=== PATIENT | female | born 1950 | race Caucasian/White ===

== ENCOUNTER 2022-06-27 11:00 | Outpatient (RCR) | payer MEDICARE, SELFPAY | END 2022-09-07 15:24 | disposition home or self-care (01) | PROVIDERS: PCP Family Medicine; Visit Provider Family Medicine | DX: M54.16 Radiculopathy, lumbar region (principal); Z51.89 Encounter for other specified aftercare | CPT/HCPCS: 97110; 97140; 97535 ==

== ENCOUNTER 2022-09-04 14:00 | Outpatient (RCR) | payer MEDICARE, SELFPAY | END 2023-01-08 14:43 | disposition home or self-care (01) | PROVIDERS: PCP Family Medicine; Visit Provider Family Medicine | DX: M54.16 Radiculopathy, lumbar region (principal); M48.061 Spinal stenosis, lumbar region without neurogenic claudication; Z98.890 Other specified postprocedural states; M25.562 Pain in left knee; G89.29 Other chronic pain; M76.62 Achilles tendinitis, left leg; R25.2 Cramp and spasm; R53.1 Weakness; M25.60 Stiffness of unspecified joint, not elsewhere classified; Z74.09 Other reduced mobility; Z51.89 Encounter for other specified aftercare | CPT/HCPCS: 97110; 97140; 97162 ==

== ENCOUNTER 2022-09-10 11:00 | Outpatient (RCR) | payer MEDICARE, SELFPAY | END 2023-02-07 23:59 | disposition home or self-care (01) | PROVIDERS: PCP Family Medicine; Visit Provider Family Medicine | DX: R53.1 Weakness (principal); Z98.890 Other specified postprocedural states; M25.562 Pain in left knee; M48.061 Spinal stenosis, lumbar region without neurogenic claudication; M54.16 Radiculopathy, lumbar region; M54.2 Cervicalgia; G44.209 Tension-type headache, unspecified, not intractable; Z51.89 Encounter for other specified aftercare; R26.9 Unspecified abnormalities of gait and mobility ==

== ENCOUNTER 2022-12-18 10:30 | Outpatient (RCR) | payer MEDICARE, SELFPAY | END 2023-04-17 23:59 | disposition home or self-care (01) | PROVIDERS: PCP Family Medicine; Visit Provider Family Medicine | DX: G44.209 Tension-type headache, unspecified, not intractable (principal); R53.1 Weakness; M48.061 Spinal stenosis, lumbar region without neurogenic claudication; M54.16 Radiculopathy, lumbar region; M25.562 Pain in left knee; Z51.89 Encounter for other specified aftercare; M54.2 Cervicalgia | CPT/HCPCS: 97110; 97140; 97162 ==

== ENCOUNTER 2023-01-16 11:00 | Outpatient (RCR) | payer MEDICARE, SELFPAY | END 2023-05-16 23:59 | disposition home or self-care (01) | PROVIDERS: PCP Family Medicine; Visit Provider Family Medicine | DX: M54.17 Radiculopathy, lumbosacral region (principal); M48.062 Spinal stenosis, lumbar region with neurogenic claudication; M48.061 Spinal stenosis, lumbar region without neurogenic claudication; M54.16 Radiculopathy, lumbar region; M25.562 Pain in left knee; G89.29 Other chronic pain; M76.62 Achilles tendinitis, left leg; G44.209 Tension-type headache, unspecified, not intractable; Z98.890 Other specified postprocedural states; R25.2 Cramp and spasm; R53.1 Weakness; M25.60 Stiffness of unspecified joint, not elsewhere classified; Z51.89 Encounter for other specified aftercare | CPT/HCPCS: 97032; 97110; 97140; 97162; 97535 ==

== ENCOUNTER 2023-05-07 09:52 | Outpatient (CLI) | payer MEDICARE, SELFPAY ==
--- OUTSIDE RECORDS SUMMARY | 2023-05-07 09:55 | XMS_ITS | Continuity of Care Document ---
Author Name Unknown Organization [facility] Address [address] [place] [address] Phone Care Team Providers Care Vehicle Maintenance Technician Name Role Phone Estrella ESCALONA, PhD, Yamil Unavailable Unavai lable Allergies, Adverse Reactions, Alerts Substance Reaction Status Criticality ALLERGENIC EXTRACTS Wheezing Active No Infor mation acetaminophen hives Active No Information ragweed pollen Active No Informatio n morphine Active No Information latex Active No Information hydrocodone Active No Information dicloxacillin Active No Information CLOVE OIL Active No Information Medications Medication Instructions Dosage Effective Dates (start - stop) Status Comments cholecalciferol (vitamin D3) 50 mcg (2,000 unit) capsule - Active OXYCODONE HCL (unknown strength) Not Available - Active PROAIR HFA (unknown strength) Not Available - Active AMITRIPTYLINE HCL (unknown strength) Not Available - Active AMLODIPINE BESYLATE (unknown strength) Not Available - Active SENNA (unknown strength) Not Available - A ctive ROSUVASTATIN CALCIUM (unknown strength) Not Available - Active HYDROXYZINE PAMOATE (unknown strength) Not Available - Active FAMOTIDINE (unknown strength) Not Available - Active ESTRADIOL (unknown strength) Not Available - Active CYMBALTA (unknown strength) Not Available - Active ALAWAY (unknown strength) Not Available - Active ZYRTEC (unknown strength) Not Available - Active KETOCONAZOLE (unknown strength) Not Available - Active GABAPENTIN (unknown strength) Not Available - Active FLONASE ALLERGY RELIEF (unknown strength) Not Available - Active BENADRYL (unknown strength) Not Available - Active BACLOFEN (unknown strength) Not Available - Active Procedures Procedure Date Office/Outpatient Visit,Est, Mod 2022 Office/Outpatient Visit,Est, Mod 2021 Office/Outpatient Visit,Est, Mod 2021 Office/Outpatient Visit,Est, Mod 2020 Office/Outpatient Visit,Est, Low 2020 Office/Outpatient Visit,Est, Mod 2020 Office/Outpatient Visit,New, Mod 2020 X-Ray Exam Lwr Spine, Min 4 Views Advance Directives Directive Yes / No Effective Date File Name No Information Encounters Encounter Description Practice Location Reason(s) For Visit Diagnoses Date Provider Providers Copied on Encounter [facility], [address], [place], [place], [id number], [place] tel:[phone] [facility] No Information Estrella Lobo. [facility], [address], [place], [address], [place]. tel:[phone] Office/Outpat ient Visit,Est, Mod [facility], [address], [place], [place], [id number], [place] tel:[phone] [facility] Spinal stenosis, lumbar region with neurogenic claudication Estrella Lobo. [facility], [address], [place], [address], [place]. tel:[phone] Referring Provider: Donald Simon [address], [address]. tel:[phone] Office/Outpat ient Visit,Est, Mod [facility], [address], [place], [id number], [place] tel:[phone] [facility] Spondylolisthe sis, lumbar region Estrella Lobo. [facility], [address], [place], [address], [place]. tel:[phone] Referring Provider: Donald Simon [address], [address]. tel:[phone] Office/Outpat ient Visit,Est, Mod [facility], [address], [place], [id number], [place] tel:[phone] [facility] No Information Estrella Lobo. [facility], [address], [place], [address], [place]. tel:[phone] Referring Provider: Donald Simon, [address], [address]. tel:[phone] Office/Outpat ient Visit,Est, Mod [facility], [address], [place], [id number], [place] tel:[phone] [facility] Pain in unspecified lower leg Estrella Lobo. [facility], [address], [place], [address], [place]. tel:[phone] Referring Provider: Donald Simon, [address], [address]. tel:[phone] Office/Outpat ient Visit,Est, Low [facility], [address], [place], [place], [id number], [place] tel:[phone] [facility] No Information Estrella Lobo. [facility], [address], [place], [address], [place]. tel:[phone] Referring Provider: Donald Simon [facility] [address] [place], [address]. tel:[phone] Office/Outpat ient Visit,Est, Mod [facility], [address], [place], [id number], [place] tel:[phone] [facility] Spinal stenosis, lumbar region with neurogenic claudication Estrella Lobo. [facility], [address], [place], [address], [place]. tel:[phone] Referring Provider: Donald Simon [address], [address]. tel:[phone] Office/Outpat ient Visit,New, Mod [facility], [address], [place], [id number], [place] tel:[phone] [facility] Spinal stenosis, lumbar region with neurogenic claudication Estrella Lobo. [facility], [address], [place], [address], [place]. tel:[phone] Referring Provider: Donald Simon [address], [address]. tel:[phone] Family History Family Member Type Diagnosis Age At Onset No Information Payers Payer name Insurance type Covered republic[id number] Medicare [facility] [id number] 1 Social History Type Description Quantity Date Captured Comments Alcohol Use Details Unknown Caffeine Use Details Unknown Tobacco Use Status No Information Smoking Status No Information Sex Female Chief Complaint And Reason For Visit No Information Reason For Referral Reason For Referral No Information History Of Present Illness Encounter Date Complaint History Of Prese nt Illness No Information Functional Status Date Functional Assessmen t No Information Instructions Date Instruction Additional Infor mation No Information Assessments Type Assessment Date No Information Patient Care Teams Name Effective Dates (start - stop) Status Members No Information
--- OUTSIDE RECORDS SUMMARY | 2023-05-07 09:55 | XMS_ITS | Continuity of Care Document ---
Author Name Unknown Organization [facility] Address [address] [place] [address] Care Team Providers Care Diet Counselor Name Role Phone [facility] Unavailable Unav ailable Procedures Procedure Date INJ FORAMEN EPIDURAL L/S INJ FORAMEN EPIDURAL ADD-ON FLUOROGUIDE FOR SPINE INJECT N BLOCK, LUMBAR/THORACIC Advance Directives Directive Yes / No Effective Date File Name No Information Encounters Encounter Description Practice Location Reason(s) For Visit Diagnoses Date Provider Providers Copied on Encounter [facility], [address] [place] [address], [id number], [facility] No Information [facility]. [address] [place], [place], [id number], . tel:[phone] Referring Provider: Heaven Courtney, [address] [place], [address]. tel:[phone] Family History Family Member Type Diagnosis Age At Onset No Information Payers Payer name Insurance type Covered democrat ID Authoriza tilyla(s) [facility] Medicare Replacement [id number] Social History Type Description Quantity Date Captured Comments Sex Female Smoking Status No Information Chief Complaint And Reason For Visit No [...]
--- OUTSIDE RECORDS SUMMARY | 2023-05-07 09:56 | XMS_ITS | Continuity of Care Document ---
Author Name Unknown Organization [facility] Address [address] [place] [address] Phone Care Team Providers Care Internal Medicine Veterinary Technician Name Role Phone Will Dre ZARATE Unavailable Unavailabl e Allergies, Adverse Reactions, Alerts Substance Reaction Status Criticality ragweed pollen Active No Informatio n morphine itchy Active No Information MOLD EXTRACTS congestion Active No Information latex breathing issues Active No Informat ion hydrocodone itchy Active No Information dicloxacillin Heartburn Active No Information CLOVE OIL inflammation Active No Information CAT HAIR STANDARDIZED ALLERG ENIC EXTRACT Active No Information alfalfa Shortness of breathWheezing Active No Information Medications Medication Instructions Dosage Effective Dates (start - stop) Status Comments Cymbalta 30 mg capsule,delayed release take 1 capsule by ORAL route every day 30 MG - Active amitriptyline 10 mg tablet take 1 tablet by ORAL route every bedtime - Active senna 8.6 mg capsule take 2 capsule by oral route every day 17.2 MG - Active albuterol sulfate 1.25 mg/3 mL solution for nebulization inhale 6 milliliter by inhalation route 3- 4 times every day via nebulizer 2.5 MG - Active amlodipine 5 mg tablet take 1 tablet by oral route every day 5 MG - Active amoxicillin 500 mg capsule take 1 capsule by oral route every 8 hours 500 MG - Active cetirizine 10 mg tablet take 1 tablet by oral route every day 10 MG - Active cholecalciferol (vitamin D3) 50 mcg (2,000 unit) capsule take 1 Capsule by Oral route every day 1 Capsule - Active diclofenac 1 % topical gel apply 2 gram by topical route 4 times every day to the affected area(s) 2.00 gram - Active diphenhydramine 25 mg tablet take 2 tablet by oral route every 4 - 6 hours as needed 50 MG - Active estradiol 0.01% (0.1 mg/gram) vaginal cream insert (1G) by vaginal route every week 1 G - Active famotidine 20 mg tablet take 1 tablet by oral route every day 20 MG - Active albuterol sulfate HFA 90 mcg/actuation aerosol inhaler inhale 2 puff by inhalation route every 4 - 6 hours as needed - Active hydroxyzine HCl 25 mg tablet take 1 tablet by oral route 4 times every day 25 MG - Active oxycodone 5 mg tablet take 1 - 2 Tablet by ORAL route every 4 - 6 hours prn, max 4/day for Chronic pain - No Longer Active Ok to fill today, to start on 08/22/21 baclofen 10 mg tablet take 0.5 - 1 tablet by ORAL route 3 times every day max 3/day - No Longer Active Procedures Procedure Date Foll-up eval q3mo opiod tx OFFICE/OUTPATIENT VISIT, EST Foll-up eval q3mo opiod tx OFFICE/OUTPATIENT VISIT, EST OFFICE VISIT, EST TELEMEDICINE 21 Foll-up eval q3mo opiod tx OFFICE VISIT, EST TELEMEDICINE 21 N BLOCK, LUMBAR/THORACIC LT FLUOROGUIDE FOR SPINE INJECTION 021 OFFICE/OUTPATIENT VISIT, NEW PT-FOCUSED HLTH RISK ASSSC ROUTINE BLOOD DRAW Advance Directives Directive Yes / No Effective Date File Name No Information Encounters Encounter Description Practice Location Reason(s) For Visit Diagnoses Date Provider Providers Copied on Encounter [facility], [address] [facility] Krystin [place], [id number] , [place] tel: [phone] [facility] [place] No Information 2 Piero Dre. [address] [facility] Ryanne [place], [id number] , [place]. tel: [phone] [facility], [address] Krystin [place], [id number] , [place] tel:[phone] [facility] [place] No Information 2 Courtney Heaven. [address] [facility] [place], [place], [id number] , [place]. tel: [phone] OFFICE/OUTPAT IENT VISIT, [facility], [address] [place] [address], [id number] , [place] tel: [phone] [facility] [place] left knee pain (chief complaint) Postprocedural painEncounter for therapeutic drug level monitoringLong term (current) use of opiate analgesicRadiculo shanique, lumbar regionComplex regional pain syndrome I of left lower limb 1 Courtney Heaven. [address] [facility] [place], [place], [id number] , [place]. tel: [phone] Referring Provider: Miguel Bernard[address], [address]. tel:[phone] OFFICE/OUTPAT IENT VISIT, [facility], [address] [place] [address], [id number] , [place] tel: [phone] [facility] left knee pain (chief complaint) Radiculopathy, lumbar regionComplex regional pain syndrome I of left lower limbPostprocedura l painEncounter for therapeutic drug level monitoringLong term (current) use of opiate analgesic Jun- 1 Courtney Heaven. [address], [place], [id number] , [place]. tel: [phone] Referring Provider: Miguel Bernard[address], [address]. tel:[phone] OFFICE VISIT, [facility], [address] [place] [address], [id number] , [place] tel: [phone] [facility] [place] left knee pain (chief complaint) Complex regional pain syndrome I of left lower limb 1 Kaylynn Claire. [facility], [address] [place] [address] [address] [facility] [address], [place], [address], [place]. tel: [phone] Referring Provider: Dre Mejias, [address] [place] [address], [id number]. [phone] [facility], [address] [place] [address] [place], [id number] , [place] [phone] [facility] [place] No Information 1 Sherwin Collado. [address] [place] [address], [id number] , [place]. tel:[phone] OFFICE VISIT, [facility] [[email or web address]] TELEMEDICINE [facility], [address] [place] [address] [place], [id number] , [place] tel:[phone] [facility] [place] Leg Pain (chief complaint) Radiculopathy, lumbar regionComplex regional pain syndrome I of left lower limbPostprocedura l painEncounter for therapeutic drug level monitoringLong term (current) use of opiate analgesic 1 Sherwin Collado. [address] [place] [address], [id number] , [place]. [phone] Referring Provider: Miguel Bernard, [facility] & [address], [place], [address]. [phone] [facility], [address] [place] [address], [id number] , [place] [phone] [facility] [place] Complex regional pain syndrome I of left lower limb 1 Sherwin Collado. [address] [place] [address], [id number] , [place]. [phone] Referring Provider: Heaven Courtney, [address] [place] [address], [id number]. tel:[phone] OFFICE/OUTPAT IENT VISIT, [facility], [address] [place] [address], [id number] , [place] [phone] [facility] [place] Leg Pain (chief complaint) Complex regional pain syndrome I of left lower limbPostprocedura l painEncounter for therapeutic drug level monitoringEncount er for screening for other disorderRadiculop athy, lumbar region 1 Sherwin Clolado. [address] [facility] [place], [id number] , [place]. tel:[phone] Referring Provider: Miguel Bernard, [facility] & [facility] [address] [facility], [place], [address]. tel:[phone] Family History Family Member Type Diagnosis Age At Onset Problem Family history of Back surge ry Payers Payer name Insurance type Covered green party ID Albert egan(s) [facility] Medicare Replacement 16 [id number] Social History Type Description Quantity Date Captured Comments Sex Female Smoking Status No Information Chief Complaint And Reason For Visit No Information Reason For Referral Reason For Referral No Information Plan Of Treatment Date Type Action Status Goal UDT. Due on due Goal RECREATION MANAGER Paperwork. Due on due Goal OARS. Due on due Goal Order Annual PT. Due on due Goal Creatinine. Due on due Goal ALT (SGPT). Due on due Goal SITE OPERATIONS MANAGER Scanned. Due on due Goal AST (SGOT). Due on due Goal Review Allergy List. Due on due Goal Tobacco Use. Due on due Goal Height. Due on d ue Goal Medication Recon ciliation. Due on due Goal PHQ-9. Due on du e Goal Update Social History. Due o n due Goal Weight. Due on d ue Goal UDT. Due on due Goal RECREATION MANAGER Paperwork. Due on due Goal OARS. Due on due Goal Order Annual PT. Due on due Goal Creatinine. Due on due Goal ALT (SGPT). Due on due Goal SITE OPERATIONS MANAGER Scanned. Due on due Goal AST (SGOT). Due on due Goal Review Allergy List. Due on due Goal Tobacco Use. Due on due Goal Height. Due on d ue Goal Medication Recon ciliation. Due on due Goal PHQ-9. Due on du e Goal Update Social History. Due o n due Goal Weight. Due on d ue Goal UDT. Due on due Goal RECREATION MANAGER Paperwork. Due on due Goal OARS. Due on due Goal Order Annual PT. Due on due Goal Creatinine. Due on due Goal ALT (SGPT). Due on due Goal SITE OPERATIONS MANAGER Scanned. Due on due Goal AST (SGOT). Due on due Goal Tobacco Use. Due on due Goal Height. Due on d ue Goal Medication Recon ciliation. Due on due Goal PHQ-9. Due on du e Goal Update Social History. Due o n due Goal Weight. Due on d ue Goal Review Allergy List. Due on due Goal UDT. Due on due Goal RECREATION MANAGER Paperwork. Due on due Goal OARS. Due on due Goal Order Annual PT. Due on due Goal Creatinine. Due on due Goal ALT (SGPT). Due on due Goal SITE OPERATIONS MANAGER Scanned. Due on due Goal AST (SGOT). Due on due Goal Tobacco Use. Due on due Goal Height. Due on d ue Goal Medication Recon ciliation. Due on due Goal PHQ-9. Due on du e Goal Update Social History. Due o n due Goal Weight. Due on d ue Goal Review Allergy List. Due on due Goal Tobacco Use. Due on due Goal Height. Due on d ue Goal Medication Recon ciliation. Due on due Goal PHQ-9. Due on du e Goal Update Social History. Due o n due Goal Weight. Due on d ue Goal Review Allergy List. Due on due Future Order: Lab Order ALT (SGP T) ([id number]), Collected on: , Sent on: Sent Future Order: Lab Order AST (SGO T) ([id number]), Collected on: , Sent on: Sent Future Order: Lab Order Complian ce Drug Analysis, Blood ([id number]), Collected on: , Sent on: Sent Future Order: Lab Order Creatini ne, Serum ([id number]), Collected on: , Sent on: Sent History Of Present Illness Encounter Date Complaint History Of Prese nt Illness left knee pain Duration: chroni c. Severity level is 5. It occurs constantly and is fluctuating. Location: left knee. The pain is aching, sharp and tingling. The pain is aggravated by climbing (and descending) stairs, lifting, movement, sitting, standing, housework, running and prolonged positioning. The pain is relieved by ice, massage, pain/RX meds and physical therapy. left knee pain (comments) Marlys is here for follow up and medications refill. The patient is leaving for [place] in July to take care of her om. She notes that she may be getting a bit better because her pain is fluctuating. The patient notes that she can hold her left leg in a position for a longer period of time without pain. She is hoping that while she is in [place] her pain will get better as well. Her medication has been helping her pain but there have been a few nights she does need to take an extra tablet of her oxycodone.Reports current medication regimen provides 50+% pain relief and allows for increased functionality. Denies side effects from current medication regimen. left knee pain Duration: chroni c. Severity level is 3. It occurs constantly and is fluctuating. Location: left knee. The pain is aching, sharp and tingling. The pain is aggravated by movement, sitting, walking, standing, movement, housework and prolonged positioning. The pain is relieved by ice, massage, physical therapy and changing position. left knee pain (comments) Marlys is here for follow up and medications refill. The patient reports that she has had some increased swelling of her left knee and left knee pain. She notes that she thought it was getting better, but is still experiencing difficulty with her balance. The patient reports that she is interested in pursuing the Spring trial and had a consult with Dr. Singh. Now she is just waiting to hear back from Dr. Singh. The patient also notes that she heard of the COOLIEF (Genicular RFA) procedure and inquires about that. She had a follow-up with her neurologist recently who said they do not want to pursue surgery on her spine until her left knee is figured out. She reports that she has a follow-up with her orthopedic surgeon.Reports current medication regimen provides 60+% pain relief and allows for increased functionality. Denies side effects from current medication regimen. left knee pain Duration: chroni c. Severity level is 4. It occurs constantly and is improving. Location: left knee. The pain is aching and sharp. left knee pain (comments) Mrs. Danni rendon is a 70 y/o female who presents today with pain in her LLE that began after her left knee replacement 8 weeks ago.In the left leg she describes de la paz splints, knots in her calf, pain along her IT band, and soreness in the quadriceps close to her knee. Pain localized to the knee is aggravated by ice and is swollen, with pain present surrounding the entire joint. Further notes zings down her leg for several years. She would like to target the peroneal or sciatic nerve particularly.She also notes that she had a left ankle surgery in the past with documented damage to nerves behind her knee, including blood clots in her peroneal vein. Her surgical team and Dr. Courtney both agree that she has CRPS and they have discussed a SCS. However, she has severe impingement in her back and will be having surgery in the future, so she would like to avoid the SCS. She would also like to avoid permanent implants in general. Leg Pain (comments) Marlys is he re for follow up and medications refill. The patient reports that she has gotten some relief from her AMISH on 05/23/21. She notes the relief in her left upper thigh, but her left lower leg is more painful. The patient did have PT today and is not sure if this aggravated her pain. She is currently still worried about her left knee pain because she wants to find a solution.Reports current medication regimen provides 50+% pain relief and allows for increased functionality. Denies side effects from current medication regimen. Leg Pain Duration: chroni c. It occurs constantly and is fluctuating. Location: left. The pain is aching, sharp and tingling. The pain is aggravated by bending, climbing (and descending) stairs, lifting, movement, sitting, walking, standing and prolonged positioning. The pain is relieved by heat, ice, massage, pain/RX meds, physical therapy and changing positions. Leg Pain (comments) Marlys is a 70 y/o female here for initial consult for left leg pain. Pain started after surgery 1 month ago. Pain averages 4/10. The patient notes that she is s/p left total knee replacement on 04/03/[address] Jama, through [facility]. She notes that soon after the surgery she was not able to start PT due to a family emergency in [place]. The patient reports that when she got back from her 11 day visit she started PT, but her pain has been getting worse since her surgery. Her pain goes from her left hip and into her LLE, noting more pain in her left knee. Ice and stress do cause her pain to increase. The patient also notes that she has de la paz splints that are contributing to her pain. She is currently enrolled in PT, focusing more on massage on the LLE. Hx scoliosis, sciatica, 5 bulging discs, and 3 nerve impingements. She has had AMISH injections in her back at [facility] by Dr. Simon. 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 After the nerve damage she had an EMG at [facility]. 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 The patient worked on her feet on a cement floor for years. Her ankle pain is not related to her left knee pain.Previous treatments include: gabapentin 900mg 2x daily, amitriptyline 20 mg at night, ibuprofen, and oxycodone. Patient is interested in pain management through [facility]. Leg Pain Duration: chroni c. Severity level is 4. It occurs constantly and is worsening. Location: left. The pain is aggravated by climbing (and descending) stairs, lifting, movement, sitting, walking, standing, running and prolonged positioning. The pain is relieved by heat, massage, pain/RX meds and physical therapy. Functional Status Date Functional Assessmen t No Information Instructions Date Instruction Additional Infor mation No Information Assessments Type Assessment Date No Information Patient Care Teams Name Effective Dates (start - stop) Status Members No Information
== END 2023-05-07 09:53 | disposition home or self-care (01) ==
LOC: INJ CL 09:53
PROVIDERS: PCP Family Medicine; Visit Provider Family Medicine
DX: M54.16 Radiculopathy, lumbar region (principal)
CPT/HCPCS: 64483; Q9966

== ENCOUNTER 2023-05-14 14:53 | Outpatient (CLI) | payer MEDICARE, SELFPAY ==
--- OUTSIDE RECORDS SUMMARY | 2023-05-14 14:56 | XMS_ITS | Continuity of Care Document ---
Author Name Unknown Organization [facility] Address [address] [place] [address] Care Team Providers Care Circuitry Negative Inspector Name Role Phone [facility] Unavailable Unav ailable Procedures Procedure Date INJ FORAMEN EPIDURAL L/S INJ FORAMEN EPIDURAL ADD-ON FLUOROGUIDE FOR SPINE INJECT N BLOCK, LUMBAR/THORACIC Advance Directives Directive Yes / No Effective Date File Name No Information Encounters Encounter Description Practice Location Reason(s) For Visit Diagnoses Date Provider Providers Copied on Encounter [facility], [address] [place] [address], [id number], [facility] No Information [facility]. [address] [place], [place], [id number], . tel:[phone] Referring Provider: Heaven Courtney, [address] [place], [address]. tel:[phone] Family History Family Member Type Diagnosis Age At Onset No Information Payers Payer name Insurance type Covered libertarian ID Authoriza tilyla(s) [facility] Medicare Replacement 16 [id number] Social History Type Description Quantity Date Captured [...]
--- OUTSIDE RECORDS SUMMARY | 2023-05-14 14:56 | XMS_ITS | Continuity of Care Document ---
Author Name Unknown Organization [facility] Address [address] [place] [address] Phone Care Team Providers Care Intensive Care Unit Registered Nurse Name Role Phone Estrella ESCALONA, PhD, Yamil [...] C, [address], [place], [place], [id number], [place] tel:[phone] [facility] No Information Estrella Lobo. [facility], [address], [place], [address], [place]. tel:[phone] Office/Outpat ient Visit,Est, Mod [facility], [address], [place], [place], [id number], [place] tel:[phone] [facility] Spinal stenosis, lumbar region with neurogenic claudication Estrella Lobo. [facility], [address], [place], [address], [place]. tel:[phone] Referring Provider: Donald Simon [address], [address]. tel:[phone] Office/Outpat ient Visit,Est, Mod [facility], [address], [place], [place], [id number], [place] tel:[phone] [facility] Spondylolisthe sis, lumbar region Estrella Lobo. [facility] [place], [address], [place], [address], [place]. tel:[phone] Referring Provider: Donald Simon [address], [address]. tel:[phone] Office/Outpat ient Visit,Est, Mod [facility], [address], [place], [id number], [place] tel:[phone] [facility] No Information Estrella Lobo. [facility] [place], [address], [place], [address], [place]. tel:[phone] Referring Provider: Donald Simon, [address], [address]. tel:[phone] Office/Outpat ient Visit,Est, Mod [facility], [address], [place], [id number], [place] tel:[phone] [facility] Pain in unspecified lower leg Estrella Lobo. [facility], [address], [place], [address], [place]. tel:[phone] Referring Provider: Donald Simon, [address], [address]. tel:[phone] Office/Outpat ient Visit,Est, Low [facility], [address], [place], [place], [id number], [place] tel:[phone] [facility] No Information Estrella Lobo. [facility] [place], [address], [place], [address], [place]. tel:[phone] Referring Provider: Donald Simon [facility] [address] [place], [address]. tel:[phone] Office/Outpat ient Visit,Est, Mod [facility], [address], [place], [id number], [place] tel:[phone] [facility] Spinal stenosis, lumbar region with neurogenic claudication Estrella Lobo. [facility] [place], [address], [place], [address], [place]. tel:[phone] Referring Provider: Donald Simon [address], [address]. tel:[phone] Office/Outpat ient Visit,New, Mod [facility], [address], [place], [id number], [place] tel:[phone] [facility] Spinal stenosis, lumbar region with neurogenic claudication Estrella Lobo. [facility], [address], [place], [address], [place]. tel:[phone] Referring Provider: Donald Simon [address], [address]. tel:[phone] Family History Family Member Type Diagnosis Age At Onset No Information Payers Payer name Insurance type Covered [id number] [id number] Social History Type Description Quantity Date [...]
--- OUTSIDE RECORDS SUMMARY | 2023-05-14 14:56 | XMS_ITS | Continuity of Care Document ---
Author Name Unknown Organization [facility] akbar Address [address] [place] [address] Phone Care Team Providers Care Web Designer Name Role Phone Will Dre ZARATE Unavailable [...] 021 OFFICE/OUTPATIENT VISIT, NEW PT-FOCUSED HLTH RISK ASSRI ROUTINE BLOOD DRAW Advance Directives Directive Yes / No Effective Date File Name No Information Encounters Encounter Description Practice Location Reason(s) For Visit Diagnoses Date Provider Providers Copied on Encounter [facility], [address] [facility] Krystin [place], [id number] , [place] tel: [phone] [facility] [place] No Information 2 Piero Dre. [address] [facility] Ryan[place], [id number] , [place]. tel: [phone] [facility], [address] [facility] Krystin [place], [id number] , [place] tel:[phone] [facility] [place] No Information 2 Courtney Heaven. [address] [facility] [place], [place], [id number] , [place]. tel: [phone] OFFICE/OUTPAT IENT VISIT, [facility], [address] [place] [address], [id number] , [place] tel: [phone] [facility] [place] left knee pain (chief complaint) Postprocedural painEncounter for therapeutic drug level monitoringLong term (current) use of opiate analgesicRadiculo shanique, lumbar regionComplex regional pain syndrome I of left lower limb 1 Courtney Heaven. [address] [facility] [place], [place], [id number] , [place]. tel: [phone] Referring Provider: Miguel Bernard[address], [address]. tel:[phone] OFFICE/OUTPAT IENT VISIT, [facility], [address] [place] [address], [id number] , [place] tel: [phone] [facility] left knee pain (chief complaint) Radiculopathy, lumbar regionComplex regional pain syndrome I of left lower limbPostprocedura l painEncounter for therapeutic drug level monitoringLong term (current) use of opiate analgesic Jun- 1 Courtney Heaven. [address] [place], [place], [id number] , [place]. tel: [phone] Referring Provider: Miguel Bernard[address], [address]. tel:[phone] OFFICE VISIT, [facility], [address] [place] [address], [id number] , [place] tel: [phone] [facility] [place] left knee pain (chief complaint) Complex regional pain syndrome I of left lower limb 1 Kaylynn Claire. [facility], [address] [place] [address] [facility] [address], [place], [address], [place]. tel: [phone] Referring Provider: Dre Mejias, [address] [place] [address], [id number]. [phone] [facility], [address] [place] [address] [place], [id number] , [place] [phone] [facility] [place] No Information 1 Sherwin Collado. [address] [place] [address], [id number] , [place]. tel:[phone] OFFICE VISIT, [facility], [address] [place] [address] [place], [id number] , [place] tel:[phone] [facility] [place] Leg Pain (chief complaint) Radiculopathy, lumbar regionComplex regional pain syndrome I of left lower limbPostprocedura l painEncounter for therapeutic drug level monitoringLong term (current) use of opiate analgesic 1 Sherwin Collado. [address] [place] [address], [id number] , [place]. [phone] Referring Provider: Miguel Bernard, [facility] & [address], [place], [address]. [phone] [facility], [address] [place] [address], [id number] , [place] [phone] [facility] Complex regional pain syndrome I of left lower limb 1 Sherwin Collado. [address] [place] [address], [id number] , [place]. [phone] Referring Provider: Heaven Courtney, [address] [place] [address], [id number]. tel:[phone] OFFICE/OUTPAT IENT VISIT, [facility], [address] [place] [address], [id number] , [place] [phone] [facility] [place] Leg Pain (chief complaint) Complex regional pain syndrome I of left lower limbPostprocedura l painEncounter for therapeutic drug level monitoringEncount er for screening for other disorderRadiculop athy, lumbar region 1 Sherwin Collado. [address] [facility] [place], [id number] , [place]. tel:[phone] Referring Provider: Miguel Bernard, [facility] [address] [facility], [place], [address]. tel:[phone] Family History Family Member Type Diagnosis Age At Onset Problem Family history of Back surge ry Payers Payer name Insurance type Covered alliance party ID Albert egan(s) [facility] Medicare Replacement 16 [id number] Social History Type Description Quantity Date Captured Comments Sex Female Smoking Status No Information Chief Complaint And Reason For Visit No Information Reason For Referral Reason For Referral No Information Plan Of Treatment Date Type Action Status Goal Weight. Due on d ue Goal Update Social History. Due o n due Goal PHQ-9. Due on du e Goal Medication Recon ciliation. Due on due Goal Height. Due on d ue Goal Tobacco Use. Due on due Goal Review Allergy List. Due on due Goal AST (SGOT). Due on due Goal IT TRAINING SPECIALIST Scanned. Due on due Goal ALT (SGPT). Due on due Goal Creatinine. Due on due Goal Order Annual PT. Due on due Goal OARS. Due on due Goal DISASTER RECOVERY ANALYST Paperwork. Due on due Goal UDT. Due on due Goal ALT (SGPT). Due on due Goal IT TRAINING SPECIALIST Scanned. Due on due Goal AST (SGOT). Due on due Goal Review Allergy List. Due on due Goal Tobacco Use. Due on due Goal Height. Due on d ue Goal Medication Recon ciliation. Due on due Goal PHQ-9. Due on du e Goal Update Social History. Due o n due Goal Weight. Due on d ue Goal Creatinine. Due on due Goal Order Annual PT. Due on due Goal OARS. Due on due Goal DISASTER RECOVERY ANALYST Paperwork. Due on due Goal UDT. Due on due Goal Review Allergy List. Due on due Goal UDT. Due on due Goal DISASTER RECOVERY ANALYST Paperwork. Due on due Goal OARS. Due on due Goal Order Annual PT. Due on due Goal Creatinine. Due on due Goal ALT (SGPT). Due on due Goal IT TRAINING SPECIALIST Scanned. Due on due Goal AST (SGOT). Due on due Goal Tobacco Use. Due on due Goal Height. Due on d ue Goal Medication Recon ciliation. Due on due Goal PHQ-9. Due on du e Goal Update Social History. Due o n due Goal Weight. Due on d ue Goal IT TRAINING SPECIALIST Scanned. Due on due Goal UDT. Due on due Goal DISASTER RECOVERY ANALYST Paperwork. Due on due Goal OARS. Due on due Goal Order Annual PT. Due on due Goal Creatinine. Due on due Goal ALT (SGPT). Due on due Goal AST (SGOT). Due [...] Future Order: Lab Order ALT (SGP T) ([id number]), Collected on: , Sent on: Sent Future Order: Lab Order AST (SGO T) ([id number]), Collected on: , Sent on: Sent Future Order: Lab Order Complian ce Drug Analysis, Blood ([id number]), Collected on: , Sent on: Sent Future Order: Lab Order Creatini ne, Serum ([id number]), Collected on: , Sent on: Sent History Of Present Illness Encounter Date Complaint History Of Prese nt Illness left knee pain (comments) Marlys is here for follow up and medications refill. The patient is leaving for [place] in July to take care of her om. She notes that she may be getting a bit better because her pain is fluctuating. The patient notes that she can hold her left leg in a position for a longer period of time without pain. She is hoping that while she is in [place] her pain will get better as well. [...] meds and physical therapy. left knee pain Duration: chroni c. Severity [...] from current medication regimen. left knee pain (comments) Mrs. Danni rendon [...] like to avoid permanent implants in general. left knee pain Duration: chroni c. Severity level is 4. It occurs constantly and is improving. Location: left knee. The pain is aching and sharp. Leg Pain Duration: chroni c. It occurs constantly and is fluctuating. Location: left. The pain is aching, sharp and tingling. The pain is aggravated by bending, climbing (and descending) stairs, lifting, movement, sitting, walking, standing and prolonged positioning. The pain is relieved by heat, ice, massage, pain/RX meds, physical therapy and changing positions. Leg Pain (comments) Marlys is he re [...] effects from current medication regimen. Leg Pain (comments) Marlys is a 70 y/o female here for initial consult for left leg pain. Pain started after surgery 1 month ago. Pain averages 4/10. The patient notes that she is s/p left total knee replacement on 04/03/[address] Jama, through [facility]. She notes that soon after the surgery she was not able to start PT due to a family emergency in [place]. The patient reports that when she got [...] had AMISH injections in her back at [facility] by Dr. Simon. 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 After the nerve damage she had an EMG at [facility]. 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 The patient worked on her feet on a cement floor for years. Her ankle pain is not related to her left knee pain.Previous treatments include: gabapentin 900mg 2x daily, amitriptyline 20 mg at night, ibuprofen, and oxycodone. Patient is interested in pain management through [facility]. Leg Pain Duration: chroni c. [...]
== END 2023-05-14 14:54 | disposition home or self-care (01) ==
LOC: INJ CL 14:54
PROVIDERS: PCP Family Medicine; Visit Provider Family Medicine
DX: M54.16 Radiculopathy, lumbar region (principal)
CPT/HCPCS: 64483; Q9966

== ENCOUNTER 2023-05-21 09:07 | Outpatient (CLI) | payer MEDICARE, SELFPAY | END 2023-05-21 09:08 | disposition home or self-care (01) | LOC: INJ CL 09:08 | PROVIDERS: PCP Family Medicine; Visit Provider Family Medicine | DX: M48.061 Spinal stenosis, lumbar region without neurogenic claudication (principal); M54.16 Radiculopathy, lumbar region | CPT/HCPCS: 64483; Q9966 ==

== ENCOUNTER 2023-08-13 08:03 | Outpatient (CLI) | payer MEDICARE, SELFPAY | END 2023-08-13 08:04 | disposition home or self-care (01) | LOC: INJ CL 08:04 | PROVIDERS: PCP Family Medicine; Visit Provider Family Medicine | DX: M54.16 Radiculopathy, lumbar region (principal); M51.36 Other intervertebral disc degeneration, lumbar region | CPT/HCPCS: 64483; J1100; Q9966 ==

== ENCOUNTER 2024-01-10 07:47 | Outpatient (CLI) | payer MEDICARE, SELFPAY ==
--- OUTSIDE RECORDS SUMMARY | 2024-01-10 07:48 | XMS_ITS | Clinical Summary ---
Author Organization [facility] Address [address] [place] [address]. [place] [address] Care Team Providers Care Rehanger Name Role Phone Latanya Green Primary Care Provider [phone] Allergies Active Allergy Reactions Criticality Noted Date Comments [place] Unknown 05/07/2014 NOTED FROM ALLERGY TESTING Cats 05/07/2014 FUR, DANDER, SALIVA Codeine Nausea,Unknown 05/07/2014 TYLENOL #3 - THINKS REACTION IS NIGHTMARES, BUT UNSURE CAN TAKE PERCOCET OR VICODIN WITHOUT ISSUES Dicloxacillin Other (See Comments) 05/07/2014 HEARTBURN PCN IS OK. ??HAS TAKEN WITHOUT REACTION Dust Mites Other (See Comments) 05/07/2014 SNEEZING AND WHEEZING Latex Itching,Rash Low 05/07/2014 No lip swelling or anaphylaxsis Mold Other (See Comments) 05/07/2014 SNEEZING AND WHEEZING Morphine Nausea and Vomiting 05/07/2014 Medications Medication Sig Dispensed Refills Start Date End Date Status albuterol (PROAIR HFA, PROVENTIL HFA, VENTOLIN HFA) 108 (90 BASE) MCG/ACT inhaler Inhale 2 puffs into the lungs every 4 hours as needed for shortness of breath / dyspnea or wheezing Active cetirizine (ZYRTEC) 10 MG tablet Take 10 mg by mouth daily as needed for allergies Active Cholecalciferol (VITAMIN D3 PO) Take 2,000 Units by mouth daily Active fluticasone (FLONASE) 50 MCG/ACT nasal spray Katy 2 sprays into both nostrils daily as needed for allergies Active olopatadine HCl (PATADAY) 0.2 % SOLN Place 2 drops into both eyes daily as needed Active Omeprazole (PRILOSEC PO) Take 20 mg by mouth daily Active GABAPENTIN PO Take 300 mg by mouth every morning Active GABAPENTIN PO Take 600 mg by mouth At Bedtime Active Calcium Carbonate-Vit D-Min (CALCIUM 1200 PO) Take 1 tablet by mouth daily Active MELATONIN PO Take 5-10 mg by mouth At Bedtime Active AMOXICILLIN PO Take 2,000 mg by mouth daily as needed (1 Hour Prior to Dental Appointment) Active Benzonatate (TESSALON PO) Take 100 mg by mouth 3 times daily as needed for cough (chronic cough) Active Vit-Fe Fumarate-FA ( MULTIVITAMIN PLUS IRON) 27-0.8 MG TABS Take 1 tablet by mouth daily Active UNKNOWN TO PATIENT Place 1 drop into both eyes every 4 hours as needed (Dry Eyes/ Allergies) Lubricating Eye Drops - Preservative Free Active oxyCODONE (ROXICODONE) 5 MG immediate release tabletIndications:S tatus post total right knee replacement Take 1-2 tablets (5-10 mg) by mouth every 4 hours as needed for moderate to severe pain 75 tablet 0 09/16/2015 Active celecoxib (CELEBREX) 100 MG capsuleIndications: Status post total right knee replacement Take 1 capsule (100 mg) by mouth 2 times daily 60 capsule 1 09/16/2015 Active senna-docusate (SENOKOT-S;PERICOLA CE) 8.6-50 MG per tabletIndications:S tatus post total right knee replacement Take 2 tablets by mouth 2 times daily 120 tablet 1 09/16/2015 Active oxyCODONE (OXYCONTIN) 20 MG 12 hr tabletIndications:S tatus post total right knee replacement Take 1 tablet (20 mg) by mouth every 12 hours 20 tablet 0 09/16/2015 Active diazepam (VALIUM) 5 MG tabletIndications:S tatus post total right knee replacement Take 1 tablet (5 mg) by mouth every 6 hours as needed for anxiety 30 tablet 1 09/16/2015 Active diphenhydrAMINE (BENADRYL) 25 MG capsuleIndications: Status post total right knee replacement Take 1-2 capsules (25-50 mg) by mouth every 6 hours as needed for itching or allergies 30 capsule 0 09/17/2015 Active famotidine (PEPCID) 20 MG tablet Take 20 mg by mouth 2 times daily Active TraZODone & Diet Manage Prod (TRAZAMINE PO) Take 50 mg by mouth nightly as needed (sleep) Active traMADol (ULTRAM) 50 MG tablet Take 50 mg by mouth every 6 hours as needed for severe pain Active Active Problems Problem Noted Date Diagnosed Date ACP (advance care planning) 12/07/2015 Overview: Advance Care Planning 12/07/2015: Receipt of ACP document: Received: Health Care Directive which was witnessed or notarized on 07-31-14. Document previously scanned on 09-14-15. Validation form completed and sent to be scanned. Code Status reflects choices in most recent ACP document. Confirmed/documented designated decision maker(s). 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 Provider to review Pain in joint, shoulder region 05/13/2008 09/07/2008 Primary localized osteoarthr osis, ankle and foot 07/29/2007 12/16/2007 Other enthesopathy of ankle and tarsus 07/29/2007 12/16/2007 Effusion of ankle and foot joint 12/18/2006 07/29/2007 Primary localized osteoarthr osis, ankle and foot 12/09/2006 07/29/2007 Pain in joint, ankle and foot 12/09/2006 07/29/2007 Encounters Date Type Department Care Team Description 11/11/2023 2:17 PM CDT Anesthesia Event [facility] PeriOp Services [address] [place] [address] Bennie Silva MD Hendrickson, Taylor K, MD 11/11/2023 1:30 PM CDT - 11/11/2023 2:[address] [facility]Op [facility] [address] [place] [address] Jim Montemayor MD Endoscopic ultrasound, upper tract 11/11/2023 11:26 AM CDT - 11/11/2023 3:52 PM CDT Hospital Encounter [facility] PreOP/PostOP [address] [place] [id number] Jim Montemayor MD Discharge Disposition: Home or Self Care 11/11/2023 Travel 11/01/2023 Travel from Last 3 Months Social History Tobacco Use Types Packs/Day Years Used Date Smoking Tobacco: Never Tobacco Cessation:Counseling Given: Not Answered Alcohol Use Standard Drinks/Week Comments Yes 0 (1 standard drink = 0.6 oz pur e alcohol) 2X/ MONTHLY Adolescent Education Answer Date Record ed Getting School Help Needed Not on file 11/10 Sex and Gender Information Value Date Recorded Sex Assigned at Not on file Gender Identity Not on file Sexual Orientation Not on file Last Filed Vital Signs Vital Sign Reading Time Taken Comments Blood Pressure 120/67 11/11/2023 3:30 PM CDT Pulse 50 11/11/2023 3:30 PM CDT Temperature 36.3 ??C (97.4 ??F) 11/11/2023 3:41 PM CD T Respiratory Rate 16 11/11/2023 3:41 PM CDT Oxygen Saturation 96% 11/11/2023 3:30 PM CDT Inhaled Oxygen Concentration - - Weight 98.7 kg (217 lb 9.6 oz) 11/11/2023 11:48 AM CDT Height 180.3 cm (5' 11) 11/11/2023 11:48 AM CDT Body Mass Index 30.35 11/11/2023 11:48 AM CDT Plan of Treatment Health Maintenance Due Date Last Done Comments ANNUAL REVIEW OF HM ORDERS 1950 CT COLONOGRAPHY 1950 DEXA 1950 FIT 1950 FLEX SIG 1950 sDNA (Cologuard) 1950 HEPATITIS C SCREENING 1968 LIPID 1990 IPV IMMUNIZATION (2 of 3 - Adult catch-up series) 01/02/1996 12/05/1995 RSV VACCINE ( & 60+) (1 - 1-dose 60+ series) 2010 FALL RISK ASSESSMENT 2015 GLUCOSE 09/15/2018 09/15/2015, 04/22, 05/11/2014 ADVANCE CARE PLANNING 12/06/2020 12/07/2015, 016 PHQ-2 (once per calendar year) 2023 COVID-19 Vaccine ( season) 2023 05/15/2023, 11/30/2022, 05/08/2022, Additional history exists MEDICARE ANNUAL WELLNESS VISIT 10/07/2024 10/08/2023, 10/04/2022, 08/17/2021, Additional history exists MAMMO SCREENING 10/07/2025 10/08/2023, 09/19, 10/04/2022, Additional history exists DTAP/TDAP/TD IMMUNIZATION (4 - Td or Tdap) 07/03/2028 07/03/2018, 07/02/2018, 05/14/2008 COLONOSCOPY 07/29/2033 07/29/2023, 02/2024, 07/29/2023 COLORECTAL CANCER SCREENING 07/29/2033 MENINGITIS IMMUNIZATION Aged Out 12/05/1995 No l onger eligible based on patient's age to complete this topic Pneumococcal Vaccine: 65+ Years Completed 07/10/2016, 05/05/2015 LUNG CANCER SCREENING Discontinued 08/16/2017 ZOSTER IMMUNIZATION Completed 12/15/2019, 07/19/2019, 04/22/2015 INFLUENZA VACCINE Completed 05/15/2023, , 06/01/2021, Additional history exists HPV IMMUNIZATION Aged Out No longer e ligible based on patient's age to complete this topic RSV MONOCLONAL ANTIBODY Aged Out No l onger eligible based on patient's age to complete this topic Medical Devices Implanted Type Area Lay Out Drafter Device Identifier Shelf Expiration Date Model / Serial / Lot Tornier Tibial Insert Left Size 3 Implanted:Qty: 1 on 05/10/2014 by Crys Ta MD at [facility] Left: Ankle [employer] 07/21/2015 [id number] / [id number] / Tornier Talar Part Short Peg Left Size 3 Implanted:Qty: 1 on 05/10/2014 by Crys Ta MD at [facility] Left: Ankle [employer] 04/20/2018 [id number] / [id number] / Imp Insert Tornier Tibial Ankle Base Size 3 [id number] Implanted:Qty: 1 on 05/10/2014 by Crys Ta MD at [facility] Left: Ankle [employer] 12/19/2018 [id number] / [id number] / Size 5-6 10mm Articular Insert Implanted:Qty: 1 on 09/14/2015 by Kennedy Flores MD at [facility] Right: Knee [employer] 02/15/2025 [id number] / / [id number] Bone Cement Palacos [id number] Implanted:Qty: 1 on 09/14/2015 by Kennedy Flores MD at [facility] Right: Knee [employer] 06/20/[id number] / / [id number] Imp Baseplate Tibial Kristyn Ii Sz 6 Rt Ti [id number] Implanted:Qty: 1 on 09/14/2015 by Kennedy Flores MD at [facility] Right: Knee [employer]-R 05/07/2025 [id number] / / [id number] Size 6n, Right Cruciate Retaining Femoral Component Implanted:Qty: 1 on 09/14/2015 by Kennedy Flores MD at [facility] Right: Knee [employer] 08/20/2022 [id number] / / [id number] Imp Comp Patella Snn Gen Ii Resurfacing 38mm [id number] Implanted:Qty: 1 on 09/14/2015 by Kennedy Flores MD at [facility] Right: Knee [employer]-R 04/22/2025 [id number] / / [id number] Explanted Type Area Lay Out Drafter Device Identifier Shelf Expiration Date Model / Serial / Lot Agility Total Ankle Components X3 (Sent For Research With César Villagran) Explanted:Qty: 3 on 05/10/2014 by Crys Ta MD at [facility] Left: Ankle 1 Screw (Discarded) Explanted:Qty: 1 on 05/10/2014 by Crys Ta MD at [facility] Left: Ankle Procedures Procedure Name Priority Date/Time Associated Diagnosis Comments ESOPHAGOGASTRODUODE NOSCOPY, WITH ENDOSCOPIC ULTRASOUND GUIDANCE 11/11/2023 2:19 PM CDT Acute diarrhea Pancreatic insufficiency UPPER EUS Routine 11/11/2023 2:03 PM CDT MA SCREENING BILATERAL W/ ADAMS Routine 10/08/2023 8:[address] CHEST W/O CONTRAST Routine 08/16/2017 9:23 AM FRONT END SOFTWARE DEVELOPER BASIC METABOLIC PANEL Routine 09/15/2015 6:49 AM FRONT END SOFTWARE DEVELOPER from Last 3 Months or Most Recently Relevant to Health Maintenance Results * UPPER EUS (11/11/2023 2:03 PM CDT) Upper EUS [facility] ___ Patient Name: Marlys Alvarez ??Procedure Date: 11/11/2023 2:03 PM ? Date of : 1950 ? Admit Type: Outpatient Age: 73 ? Gender: Female Attending MD: JIM MONTEMAYOR MD, ??Total Sedation Time: Instrument Name: 259 - Linear EUS ? ___ Procedure: ?Upper EUS Indications: ?Suspected chronic pancreatitis Providers: ?JIM MONTEMAYOR MD (Doctor) Referring MD: ? Medicines: ?Monitored Anesthesia Care Complications: ?No immediate complications. ___ Procedure: ?Pre-Anesthesia Assessment: ?- Prior to the procedure, a History and Physical ?was performed, and patient medications and ?allergies were reviewed. The patient is competent. ?The risks and benefits of the procedure and the ?sedation options and risks were discussed with the ?patient. All questions were answered and informed ?consent was obtained. Patient identification and ?proposed procedure were verified by the physician ?in the pre-procedure area. Mental Status ?Examination: alert and oriented. Airway ?Examination: normal oropharyngeal airway and neck ?mobility. Respiratory Examination: clear to ?auscultation. CV Examination: normal. Prophylactic ?Antibiotics: The patient does not require ?prophylactic antibiotics. Prior Anticoagulants: The ?patient has taken no anticoagulant or antiplatelet ?agents. ASA Grade Assessment: II - A patient with ?mild systemic disease. After reviewing the risks ?and benefits, the patient was deemed in ?satisfactory condition to undergo the procedure. ?The anesthesia plan was to use monitored anesthesia ?care (MAC). Immediately prior to administration of ?medications, the patient was re-assessed for ?adequacy to receive sedatives. The heart rate, ?respiratory rate, oxygen saturations, blood ?pressure, adequacy of pulmonary ventilation, and ?response to care were monitored throughout the ?procedure. The physical status of the patient was ?re-assessed after the procedure. ?After obtaining informed consent, the endoscope was ?passed under direct vision. Throughout the ?procedure, the patient's blood pressure, pulse, and ?oxygen saturations were monitored continuously. The ?Olympus Exera II Ultrasound Gastrovideoscope, ?Linear, Model # [id number], Censitrac # [id number] ?was introduced through the mouth, and advanced to ?the second part of duodenum. The upper EUS was ?accomplished with ease. The patient tolerated the ?procedure well. ? Findings: ? ENDOSCOPIC FINDING: : ? No gross lesions were noted in the entire examined stomach. ? The ampulla, first portion of the duodenum and second portion of the ? duodenum were normal. ? ENDOSONOGRAPHIC FINDING: : ? There was no sign of significant endosonographic abnormality in the ? ampulla. No pathologic lymphadenopathy and no masses were identified. ? There was no sign of significant endosonographic abnormality in the ? common bile duct. The maximum diameter of the duct was 6 mm. An ? unremarkable gallbladder was identified. ? There was no sign of significant endosonographic abnormality in the ? entire pancreas. The pancreatic duct measured up to 3 mm in diameter. ? The pancreas was well visualized, no pathologic lymphadenopathy, no ? masses, no cysts, no calcifications, the pancreatic duct was well ? visualized from ampulla to tail, the pancreatic duct was thin in ? caliber, the pancreatic duct was regular in contour. ? The region of the celiac plexus and celiac ganglia was visualized and ? showed no sign of significant endosonographic abnormality. The vascular ? anatomy of the region was normal. ? Endosonographic examination of the abdominal aorta suggested the ? presence of atherosclerotic changes. ? Impression: ? - No gross lesions in the entire stomach. ?- Normal ampulla, first portion of the duodenum and ?second portion of the duodenum. ?- There was no sign of significant pathology in the ?ampulla. ?- There was no sign of significant pathology in the ?common bile duct. CBD measured up to 6 mm. ?Gallbladder was unremarkable. ?- There was no sign of significant pathology in the ?entire pancreas. PD measured up to 3.4 mm in head, ?1.9 mm in body and 1.1 mm in tail of pancreas. ?- Atherosclerosis of the abdominal aorta was seen ?endosonographical ly. ?- No specimens collected. Recommendation: ? - Discharge patient to home (ambulatory). ?- Advance diet as tolerated today. ?- Return to referring physician. ? Procedure Code(s): ? --- Professional --- ? 89316, Esophagogastroduode noscopy, flexible, transoral; with endoscopic ? ultrasound examination limited to the esophagus, stomach or duodenum, ? and adjacent structures Diagnosis Code(s): ? --- Professional --- ? I70.0, Atherosclerosis of aorta CPT copyright 2021 [employer]. All rights reserved. The codes documented in this report are preliminary and upon dishwashing machine operator review may be revised to meet current compliance requirements. Attending Participation: ? I personally performed the entire procedure. Jarad Montemayor MD ___ JIM MONTEMAYOR MD 11/11/2023 2:39:36 PM I was physically present for the entire viewing portion of the exam. JIM MONTEMAYOR MD Number of Addenda: 0 Note Initiated On: 11/11/2023 2:03 PM MRN: ?[id number] Procedure Date: ? 11/11/2023 2:03:55 PM Total Procedure Duration: 0 hours 7 minutes 19 seconds Estimated Blood Loss: ? Estimated blood loss: none. Scope In: 2:26:14 PM Scope Out: 2:33:33 PM RADIOLOGY RESULTS 11/11/2023 2:03 PM CDT Jim Montemayor MD PROCEDURES Performing Organization Address City/[facility]/ZIP Co de Phone Number RADIOLOGY RESULTS * (ABNORMAL) Basic metabolic panel (09/15/2015 6:49 AM FRONT END SOFTWARE DEVELOPER) Sodium 139 133 - 144 mmol/L [facility] Potassium 4.5 3.4 - 5.3 mmol/L [facility] Chloride 105 94 - 109 mmol/L [facility] Carbon Dioxide 26 20 - 32 mmol/L [facility] Anion Gap 8 3 - 14 mmol/L [facility] Glucose 126(H) 70 - 99 mg/dL [facility] Urea Nitrogen 15 7 - 30 mg/dL [facility] Creatinine 0.74 0.52 - 1.04 mg/dL [facility] GFR Estimate 78 >60 mL/min/1. 7m2 [facility] Comment:Non GFR Calc GFR Estimate If Black >90 GFR Calc >60 mL/min/1. 7m2 [facility] Calcium 8.0(L) 8.5 - 10.1 mg/dL [facility] Blood specimen (specimen) 09/15/2015 6:49 AM FRONT END SOFTWARE DEVELOPER 09/15/2015 6:54 AM FRONT END SOFTWARE DEVELOPER Yamil Fair PA-C LAB - BLOOD ORDERABLES Performing Organization Address [facility] Co de Phone Number [facility] [address] [address], [facility] [phone] from Last 3 Months or Most Recently Relevant to Health Maintenance Advance Directives For more information, please contact: [phone] Documents on File Type Date Recorded Patient Beef Skinner Expl anation Advance Directives and Living Will 09/14/2015 7:21 PM Health Care Directiv e 07-31-14 * Full Code (Latest Code Status on File) Date Activated Date Inactivated Comments 09/17/2015 12:21 PM 11/11/2023 11:26 AM * Full Code Date Activated Date Inactivated Comments 09/14/2015 4:50 PM 09/17/2015 12:21 PM Care Teams Rehanger Relationship Specialty Start Date End Date Latanya Green PCP - General Family Practice 04/19/14
--- OUTSIDE RECORDS SUMMARY | 2024-01-10 07:49 | XMS_ITS | Encounter Summary ---
Author Organization [place] Address [address] [place] [address]. [place] [address] Care Team Providers Care Special Assemblies Supervisor Name Role Phone Latanya Green Primary Care Provider [phone] Reason for Visit * Auth/Cert (Routine) Specialty Diagnoses / Procedures Referred By Carlos t Referred To Contact Surgery Diagnoses Acute diarrhea Pancreatic insufficiency Acute diarrhea [R19.7] Pancreatic insufficiency [K86.89] Procedures OK ENDOSCOPIC US EXAM, ESOPH OK UPPR GI ENDOSCOPY W/US FN BX OK EGD INTRMURAL NEEDLE ASPIR/BIOP ALTERED ANATOMY OK EDG US EXAM SURGICAL ALTER STOM DUODENUM/JEJUNUM Endoscopic ultrasound, Upper tract [facility] [address] [place] [address] Referral ID Status Reason Start Date Expiration Date Visits Re quested Visits Authorized [id number] 1 1 Encounter Details Date Type Department Care Team (Late st Contact Info) Description 11/11/2023 1:30 PM CDT - 11/11/2023 2:10 PM CDT Surgery [facility] [address] [place] [id number] Jim Montemayor MD [facility] [address] [id number] Endoscopic ultrasound, upper tract Surgery Details Date/Time Status Location OR Service Patient Class Case Class Case Type Trauma Case? 11/11/23 1:30 PM Posted [facility] OR OR 05 Gastroenterology Same Day Surgery Elective Panel 1 Procedure LRB Anes Op Region Wound Class Comments Endoscopic ultrasound, upper tract N/A MAC Mouth II-Clean Contaminated Surgeon Surgeon Role Service Panel Jim Montemayor MD Primary Gastroenterology 1 documented in this encounter Social History Tobacco Use Types Packs/Day Years [...] on file Sexual Orientation Not on file documented as of this encounter Last Filed Vital Signs Vital Sign Reading Time Taken Comments Blood Pressure 141/74 11/11/2023 11:50 AM CDT Pulse 54 11/11/2023 11:50 AM CDT Temperature 36.1 ??C (96.9 ??F) 11/11/2023 11:50 AM C DT Respiratory Rate 18 11/11/2023 11:50 AM CDT Oxygen Saturation 96% 11/11/2023 11:50 AM CDT Inhaled Oxygen Concentration - - Weight 98.7 kg (217 lb 9.6 oz) 11/11/2023 11:48 AM CDT Height 180.3 cm (5' 11) 11/11/2023 11:48 AM CDT Body Mass Index 30.35 11/11/2023 11:48 AM CDT documented in this encounter Discharge Instructions * Discharge Instructions* Manjula Barriso RN - 11/11/2023 2:[address] JIM MONTEMAYOR M[facility]IN[facility] PHONE NUMBER: [phone] [facility] * Attachments The following attachments cannot be sent through Care Everywhere. * (s) After Anesthesia (Sleep Medicine) (Tristanian) documented in this encounter Medications at Time of Discharge Medication Sig Dispensed Refills Start Date End Date albuterol (PROAIR HFA, PROVENTIL HFA, VENTOLIN HFA) 108 (90 BASE) MCG/ACT inhaler Inhale 2 puffs into the lungs every 4 hours as needed for shortness of breath / dyspnea or wheezing AMOXICILLIN PO Take 2,000 mg by mouth daily as needed (1 Hour Prior to Dental Appointment) Benzonatate (TESSALON PO) Take 100 mg by mouth 3 times daily as needed for cough (chronic cough) Calcium Carbonate-Vit D-Min (CALCIUM 1200 PO) Take 1 tablet by mouth daily celecoxib (CELEBREX) 100 MG capsuleIndications:Sta tus post total right knee replacement Take 1 capsule (100 mg) by mouth 2 times daily 60 capsule 1 09/16/2015 cetirizine (ZYRTEC) 10 MG tablet Take 10 mg by mouth daily as needed for allergies Cholecalciferol (VITAMIN D3 PO) Take 2,000 Units by mouth daily diazepam (VALIUM) 5 MG tabletIndications:Stat us post total right knee replacement Take 1 tablet (5 mg) by mouth every 6 hours as needed for anxiety 30 tablet 1 09/16/2015 diphenhydrAMINE (BENADRYL) 25 MG capsuleIndications:Sta tus post total right knee replacement Take 1-2 capsules (25-50 mg) by mouth every 6 hours as needed for itching or allergies 30 capsule 0 09/17/2015 famotidine (PEPCID) 20 MG tablet Take 20 mg by mouth 2 times daily fluticasone (FLONASE) 50 MCG/ACT nasal spray [place] 2 sprays into both nostrils daily as needed for allergies GABAPENTIN PO Take 300 mg by mouth every morning GABAPENTIN PO Take 600 mg by mouth At Bedtime MELATONIN PO Take 5-10 mg by mouth At Bedtime olopatadine HCl (PATADAY) 0.2 % SOLN Place 2 drops into both eyes daily as needed Omeprazole (PRILOSEC PO) Take 20 mg by mouth daily oxyCODONE (OXYCONTIN) 20 MG 12 hr tabletIndications:Stat us post total right knee replacement Take 1 tablet (20 mg) by mouth every 12 hours 20 tablet 0 09/16/2015 oxyCODONE (ROXICODONE) 5 MG immediate release tabletIndications:Stat us post total right knee replacement Take 1-2 tablets (5-10 mg) by mouth every 4 hours as needed for moderate to severe pain 75 tablet 0 09/16/2015 Vit-Fe Fumarate-FA ( MULTIVITAMIN PLUS IRON) 27-0.8 MG TABS Take 1 tablet by mouth daily senna-docusate (SENOKOT-S;PERICOLACE) 8.6-50 MG per tabletIndications:Stat us post total right knee replacement Take 2 tablets by mouth 2 times daily 120 tablet 1 09/16/2015 traMADol (ULTRAM) 50 MG tablet Take 50 mg by mouth every 6 hours as needed for severe pain TraZODone & Diet Manage Prod (TRAZAMINE PO) Take 50 mg by mouth nightly as needed (sleep) UNKNOWN TO PATIENT Place 1 drop into both eyes every 4 hours as needed (Dry Eyes/ Allergies) Lubricating Eye Drops - Preservative Free documented as of this encounter Plan of Treatment Not on file documented as of this encounter Procedures Procedure Name Priority Date/Time Associated Diagnosis Comments ESOPHAGOGASTRODUODE NOSCOPY, WITH ENDOSCOPIC ULTRASOUND GUIDANCE 11/11/2023 2:19 PM CDT Acute diarrhea Pancreatic insufficiency UPPER EUS Routine 11/11/2023 2:03 PM CDT documented in this encounter Results * UPPER EUS (11/11/2023 2:03 PM CDT) Upper EUS [facility] ___ Patient Name: Marlys Alvarez ??Procedure [...] Exera II Ultrasound Gastrovideoscope, ?Linear, Model # [id number], Censitrac # [id number] ?was introduced through the mouth, and advanced [...] Procedure Code(s): ? --- Professional --- ? 14260, Esophagogastroduode noscopy, flexible, transoral; with endoscopic ? ultrasound examination limited to the esophagus, stomach or duodenum, ? and adjacent structures Diagnosis Code(s): ? --- Professional --- ? I70.0, Atherosclerosis of aorta CPT copyright 2021 [employer]. All rights reserved. The codes documented in this report are preliminary and upon coordinator skill training program review may be revised to meet current compliance requirements. Attending Participation: ? I personally performed the entire procedure. Jarad Montemayor MD ___ JIM MONTEMAYOR MD 11/11/2023 2:39:36 PM I was physically present for the entire viewing portion of the exam. JIM MONTEMAYOR MD Number of Addenda: 0 Note Initiated On: 11/11/2023 2:03 PM MRN: ?[id number] Procedure Date: ? 11/11/2023 2:03:55 PM Total Procedure Duration: 0 hours 7 minutes 19 seconds Estimated Blood Loss: ? Estimated blood loss: none. Scope In: 2:26:14 PM Scope Out: 2:33:33 PM RADIOLOGY RESULTS 11/11/2023 2:03 PM CDT Jim Montemayor MD PROCEDURES RADIOLOGY RESULTS documented in this encounter Visit Diagnoses Diagnosis Acute diarrhea Diarrhea Pancreatic insufficiency Other specified disease of pancreas documented in this encounter Administered Medications Inactive Administered Medications - up to 3 most recent administrations Medication Order MAR Action Action Date Dose Rate Site lactated ringers infusion at 10 mL/hr, Intravenous, CONTINUOUS, IF patient NOT on dialysis., Pre-procedure, Starting on Sat11/11/23 at 1230, Until Sat11/11/23 at 1753 Restarted 11/11/2023 1:51 PM CDT $New Bag 11/11/2023 12:55 PM CDT 10 mL/hr lidocaine (LMX4) cream Topical, EVERY 1 HOUR PRN, pain, with VAD insertion, Starting on Sat11/11/23 at 1446, Apply at least 30 minutes prior to VAD insertion in divided doses as needed for size of site for insertion. MAX Dose: 2.5 g (?? of 5 g tube) Do NOT give if patient has a history of allergy to any local anesthetic or any dannie product. Do NOT use both lidocaine intradermal/subcutaneous injection and the lidocaine cream on the same site., Pre-procedure lidocaine (LMX4) cream Topical, EVERY 1 HOUR PRN, pain, with VAD insertion, Starting on Sat11/11/23 at 1216, Apply at least 30 minutes prior to VAD insertion in divided doses as needed for size of site for insertion. MAX Dose: 2.5 g (?? of 5 g tube) Do NOT give if patient has a history of allergy to any local anesthetic or any dannie product. Do NOT use both lidocaine intradermal/subcutaneous injection and the lidocaine cream on the same site., Pre-procedure lidocaine 1 % 0.1-1 mL 0.1-1 mL, Other, EVERY 1 HOUR PRN, mild pain with VAD insertion, Starting on Sat11/11/23 at 1446, MAX dose 1 mL subcutaneous OR intradermal along the side of the vein in divided doses as needed for VAD insertion. Do NOT give if patient has a history of allergy to any local anesthetic or any dannie product. Do NOT use both lidocaine intradermal/subcutaneous injection and the lidocaine cream on the same site., Pre-procedure lidocaine 1 % 0.1-1 mL 0.1-1 mL, Other, EVERY 1 HOUR PRN, mild pain with VAD insertion, Starting on Sat11/11/23 at 1216, MAX dose 1 mL subcutaneous OR intradermal along the side of the vein in divided doses as needed for VAD insertion. Do NOT give if patient has a history of allergy to any local anesthetic or any dannie product. Do NOT use both lidocaine intradermal/subcutaneous injection and the lidocaine cream on the same site., Pre-procedure naloxone (NARCAN) injection 0.1 mg 0.1 mg, Intravenous, EVERY 2 MIN PRN, opioid reversal, Starting on Sat11/11/23 at 1446, Notify Anesthesia Provider when administering naloxone (NARCAN) for unintended sedation or respiratory depression IF all three of the following criteria are met: 1. Respiratory rate LESS than or EQUAL to 8. 2. SaO2 is LESS than 92% and/or end-tidal CO2 is GREATER than 50. 3. Patient is receiving an opioid, has unintended sedation assessed as RASS (-4) or (-5) and patient is NOT currently on mechanical ventilation. RASS scale (-4) is deep sedation with no response to voice but movement or eye opening to physical stimulation. RASS scale (-5) is unarousable. Notify Anesthesia Provider PRIOR to administering additional opioids if naloxone (NARCAN) given. Once patient has demonstrated a response to naloxone (NARCAN), continue to monitor respiratory rate, depth, oxygen saturation EVERY 15 minutes x 2, then EVERY 30 minutes x 2, then EVERY hour x 1 after each naloxone (NARCAN) dose. Monitor in Phase II for 2 hours after last naloxone (NARCAN) dose PRIOR to discharge., Phase ll ondansetron (ZOFRAN ODT) ODT tab 4 mg 4 mg, Oral, EVERY 30 MIN PRN, nausea, Starting on Sat11/11/23 at 1446, For 2 doses, MAX total dose = 8 mg, including OR dosing. If not resolved in 15 minutes, then go to step 2 [prochlorperazine (COMPAZINE), if ordered]. With dry hands, peel back foil backing and gently remove tablet. Do not push oral disintegrating tablet through foil backing. Administer immediately on tongue and oral disintegrating tablet dissolves in seconds, then swallow with saliva. Liquid not required., Phase ll ondansetron (ZOFRAN ODT) ODT tab 4 mg 4 mg, Oral, EVERY 6 HOURS PRN, nausea, vomiting, Starting on Sat11/11/23 at 1446, This is Step 1 of nausea and vomiting management. If nausea not resolved in 15 minutes, go to Step 2 prochlorperazine (COMPAZINE). Do not push through foil backing. Peel back foil and gently remove. Place on tongue immediately. Administration with liquid unnecessary With dry hands, peel back foil backing and gently remove tablet. Do not push oral disintegrating tablet through foil backing. Administer immediately on tongue and oral disintegrating tablet dissolves in seconds, then swallow with saliva. Liquid not required. ondansetron (ZOFRAN) injection 4 mg 4 mg, Intravenous, EVERY 30 MIN PRN, nausea, Administer over 2-5 Minutes, Starting on Sat11/11/23 at 1446, For 2 doses, MAX total dose = 8 mg, including OR dosing. If not resolved in 15 minutes, then go to step 2 [prochlorperazine (COMPAZINE), if ordered]. Irritant., Phase ll ondansetron (ZOFRAN) injection 4 mg 4 mg, Intravenous, EVERY 6 HOURS PRN, nausea, vomiting, Administer over 2-5 Minutes, Starting on Sat11/11/23 at 1446, This is Step 1 of nausea and vomiting management. If nausea not resolved in 15 minutes, go to Step 2 prochlorperazine (COMPAZINE). Irritant. oxyCODONE (ROXICODONE) tablet 5 mg 5 mg, Oral, ONCE PRN, moderate pain, other, or is unable to participate in post op recovery due to pain., Starting on Sat11/11/23 at 1446, For 1 dose, Max: 5 mg for opioid-na??ve patient., Phase ll prochlorperazine (COMPAZINE) injection 5 mg 5 mg, Intravenous, EVERY 6 HOURS PRN, nausea, vomiting, Administer over 1-2 Minutes, Starting on Sat11/11/23 at 1446, Phase ll sodium chloride (PF) 0.9% PF flush 3 mL 3 mL, Intracatheter, EVERY 8 HOURS, First dose on Sat11/11/23 at 1500, to lock peripheral IV dormant line, Pre-procedure sodium chloride (PF) 0.9% PF flush 3 mL 3 mL, Intracatheter, EVERY 1 MIN PRN, line flush, other, to ensure patency or to lock dormant line, Starting on Sat11/11/23 at 1446, Pre-procedure sodium chloride (PF) 0.9% PF flush 3 mL 3 mL, Intracatheter, EVERY 1 MIN PRN, line flush, other, to ensure patency or to lock dormant line, Starting on Sat11/11/23 at 1216, Pre-procedure documented in this encounter Active and Recently Administered Medications Times are shown in CDT. Scheduled Medication Order 11/09/2023 11/10/2023 11/11/2023 sodium chloride (PF) 0.9% PF flush 3 mL 3 mL, Intracatheter, EVERY 8 HOURS, First dose on Sat11/11/23 at 1500, to lock peripheral IV dormant line, Pre-procedure 1500 (Canceled Entry - Provider: Orders Generic Provider - Comment: Automatically canceled at discontinue of medication order) Continuous Medication Order 11/09/2023 11/10/2023 11/11/2023 lactated ringers infusion at 10 mL/hr, Intravenous, CONTINUOUS, IF patient NOT on dialysis., Pre-procedure, Starting on Sat11/11/23 at 1230, Until Sat11/11/23 at 1753 1255 ($New Bag - Pro vider: Evelyn Hernández RN)1350 (Paused - Provider: Kennedy Yang APRN MAKE UP OPERATOR HELPER - Comment: Switch to gravity)1351 (Restarted - Provider: Kennedy Yang APRN MAKE UP OPERATOR HELPER)1432 (Anesthesia Volume Adjustment - Provider: Kennedy Yang APRN MAKE UP OPERATOR HELPER) PRN Medication Order 11/09/2023 11/10/2023 11/11/2023 flumazenil (ROMAZICON) injection 0.2 mg 0.2 mg, Intravenous, EVERY 1 MIN PRN, benzodiazepine reversal, over sedation, Administer over 1 Minutes, Starting on Sat11/11/23 at 1446, For 12 hours, Give over 15 seconds. If inadequate response after 45 seconds, may repeat up to a MAX total dose of 1 mg. Continue monitoring until discharge criteria are met for a minimum of 2 hours Irritant. Use with caution in patients on benzodiazepine therapy. lidocaine (LMX4) cream Topical, EVERY 1 HOUR PRN, pain, with VAD insertion, Starting on Sat11/11/23 at 1446, Apply at least 30 minutes prior to VAD insertion in divided doses as needed for size of site for insertion. MAX Dose: 2.5 g (?? of 5 g tube) Do NOT give if patient has a history of allergy to any local anesthetic or any dannie product. Do NOT use both lidocaine intradermal/subcutaneous injection and the lidocaine cream on the same site., Pre-procedure lidocaine (LMX4) cream Topical, EVERY 1 HOUR PRN, pain, with VAD insertion, Starting on Sat11/11/23 at 1216, Apply at least 30 minutes prior to VAD insertion in divided doses as needed for size of site for insertion. MAX Dose: 2.5 g (?? of 5 g tube) Do NOT give if patient has a history of allergy to any local anesthetic or any dannie product. Do NOT use both lidocaine intradermal/subcutaneous injection and the lidocaine cream on the same site., Pre-procedure lidocaine 1 % 0.1-1 mL 0.1-1 mL, Other, EVERY 1 HOUR PRN, mild pain with VAD insertion, Starting on Sat11/11/23 at 1446, MAX dose 1 mL subcutaneous OR intradermal along the side of the vein in divided doses as needed for VAD insertion. Do NOT give if patient has a history of allergy to any local anesthetic or any dannie product. Do NOT use both lidocaine intradermal/subcutaneous injection and the lidocaine cream on the same site., Pre-procedure lidocaine 1 % 0.1-1 mL 0.1-1 mL, Other, EVERY 1 HOUR PRN, mild pain with VAD insertion, Starting on Sat11/11/23 at 1216, MAX dose 1 mL subcutaneous OR intradermal along the side of the vein in divided doses as needed for VAD insertion. Do NOT give if patient has a history of allergy to any local anesthetic or any dannie product. Do NOT use both lidocaine intradermal/subcutaneous injection and the lidocaine cream on the same site., Pre-procedure naloxone (NARCAN) injection 0.1 mg 0.1 mg, Intravenous, EVERY 2 MIN PRN, opioid reversal, Starting on Sat11/11/23 at 1446, Notify Anesthesia Provider when administering naloxone (NARCAN) for unintended sedation or respiratory depression IF all three of the following criteria are met: 1. Respiratory rate LESS than or EQUAL to 8. 2. SaO2 is LESS than 92% and/or end-tidal CO2 is GREATER than 50. 3. Patient is receiving an opioid, has unintended sedation assessed as RASS (-4) or (-5) and patient is NOT currently on mechanical ventilation. RASS scale (-4) is deep sedation with no response to voice but movement or eye opening to physical stimulation. RASS scale (-5) is unarousable. Notify Anesthesia Provider PRIOR to administering additional opioids if naloxone (NARCAN) given. Once patient has demonstrated a response to naloxone (NARCAN), continue to monitor respiratory rate, depth, oxygen saturation EVERY 15 minutes x 2, then EVERY 30 minutes x 2, then EVERY hour x 1 after each naloxone (NARCAN) dose. Monitor in Phase II for 2 hours after last naloxone (NARCAN) dose PRIOR to discharge., Phase ll naloxone (NARCAN) injection 0.2 mg 0.2 mg, Intravenous, EVERY 2 MIN PRN, opioid reversal, Starting on Sat11/11/23 at 1446, Administer intravenous route when available and notify provider when administered. For unintended sedation or respiratory depression if all of the below criteria are met: ~ respiratory rate LESS than or EQUAL to 8. ~SaO2 less than 92% and or/end-tidal CO2 is greater than 50. ~ the patient is receiving an opioid, has unintended sedations assessed as RASS (-3), and is currently not on mechanical ventilation. RASS scale moderate (-3) is movement or eye opening to voice but no eye contact. Patient Monitoring Once the patient has demonstrated a response to the naloxone, continue to monitor respiratory rate, depth, oxygen saturation and end-tidal CO2 (if available) every 15 minutes x 2, then every 30 minutes x 2, then every 1 hour x 1 after each naloxone dose. Consider transfer to ICU if patient respiratory parameters have not improved after 4 naloxone doses. naloxone (NARCAN) injection 0.2 mg 0.2 mg, Intramuscular, EVERY 2 MIN PRN, opioid reversal, Starting on Sat11/11/23 at 1446, Administer intramuscular if an intravenous route is not available and notify provider when administered. For unintended sedation or respiratory depression if all of the below criteria are met: ~ respiratory rate LESS than or EQUAL to 8. ~SaO2 less than 92% and or/end-tidal CO2 is greater than 50. ~ the patient is receiving an opioid, has unintended sedations assessed as RASS (-3), and is currently not on mechanical ventilation. RASS scale moderate (-3) is movement or eye opening to voice but no eye contact. Patient Monitoring Once the patient has demonstrated a response to the naloxone, continue to monitor respiratory rate, depth, oxygen saturation and end-tidal CO2 (if available) every 15 minutes x 2, then every 30 minutes x 2, then every 1 hour x 1 after each naloxone dose. Consider transfer to ICU if patient respiratory parameters have not improved after 4 naloxone doses. naloxone (NARCAN) injection 0.4 mg 0.4 mg, Intravenous, EVERY 2 MIN PRN, opioid reversal, Starting on Sat11/11/23 at 1446, Administer intravenous route when available and notify provider when administered. For unintended sedation or respiratory depression if all of the below criteria are met: ~ respiratory rate LESS than or EQUAL to 8. ~ SaO2 less than 92% and or/end-tidal CO2 is greater than 50. ~ the patient is receiving an opioid, has unintended sedation assessed as RASS (-4) or (-5) and patient is currently not on mechanical ventilation. RASS scale (-4) is deep sedation with no response to voice but movement or eye opening to physical stimulation. RASS scale (-5) is unarousable. Patient Monitoring Once the patient has demonstrated a response to the naloxone, continue to monitor respiratory rate, depth, oxygen saturation and end-tidal CO2 (if available) every 15 minutes x 2, then every 30 minutes x 2, then every 1 hour x 1 after each naloxone dose. Consider transfer to ICU if patient respiratory parameters have not improved after 4 naloxone doses. naloxone (NARCAN) injection 0.4 mg 0.4 mg, Intramuscular, EVERY 2 MIN PRN, opioid reversal, Starting on Sat11/11/23 at 1446, Administer intramuscular if an intravenous route is not available and notify provider when administered. For unintended sedation or respiratory depression if all of the below criteria are met: ~ respiratory rate LESS than or EQUAL to 8. ~ SaO2 less than 92% and or/end-tidal CO2 is greater than 50. ~ the patient is receiving an opioid, has unintended sedation assessed as RASS (-4) or (-5) and patient is currently not on mechanical ventilation. RASS scale (-4) is deep sedation with no response to voice but movement or eye opening to physical stimulation. RASS scale (-5) is unarousable. Patient Monitoring Once the patient has demonstrated a response to the naloxone, continue to monitor respiratory rate, depth, oxygen saturation and end-tidal CO2 (if available) every 15 minutes x 2, then every 30 minutes x 2, then every 1 hour x 1 after each naloxone dose. Consider transfer to ICU if patient respiratory parameters have not improved after 4 naloxone doses. ondansetron (ZOFRAN ODT) ODT tab 4 mg(Linked Group 1) 4 mg, Oral, EVERY 30 MIN PRN, nausea, Starting on Sat11/11/23 at 1446, For 2 doses, MAX total dose = 8 mg, including OR dosing. If not resolved in 15 minutes, then go to step 2 [prochlorperazine (COMPAZINE), if ordered]. With dry hands, peel back foil backing and gently remove tablet. Do not push oral disintegrating tablet through foil backing. Administer immediately on tongue and oral disintegrating tablet dissolves in seconds, then swallow with saliva. Liquid not required., Phase ll ondansetron (ZOFRAN ODT) ODT tab 4 mg(Linked Group 2) 4 mg, Oral, EVERY 6 HOURS PRN, nausea, vomiting, Starting on Sat11/11/23 at 1446, This is Step 1 of nausea and vomiting management. If nausea not resolved in 15 minutes, go to Step 2 prochlorperazine (COMPAZINE). Do not push through foil backing. Peel back foil and gently remove. Place on tongue immediately. Administration with liquid unnecessary With dry hands, peel back foil backing and gently remove tablet. Do not push oral disintegrating tablet through foil backing. Administer immediately on tongue and oral disintegrating tablet dissolves in seconds, then swallow with saliva. Liquid not required. ondansetron (ZOFRAN) injection 4 mg(Linked Group 1) 4 mg, Intravenous, EVERY 30 MIN PRN, nausea, Administer over 2-5 Minutes, Starting on Sat11/11/23 at 1446, For 2 doses, MAX total dose = 8 mg, including OR dosing. If not resolved in 15 minutes, then go to step 2 [prochlorperazine (COMPAZINE), if ordered]. Irritant., Phase ll ondansetron (ZOFRAN) injection 4 mg(Linked Group 2) 4 mg, Intravenous, EVERY 6 HOURS PRN, nausea, vomiting, Administer over 2-5 Minutes, Starting on Sat11/11/23 at 1446, This is Step 1 of nausea and vomiting management. If nausea not resolved in 15 minutes, go to Step 2 prochlorperazine (COMPAZINE). Irritant. oxyCODONE (ROXICODONE) tablet 5 mg 5 mg, Oral, ONCE PRN, moderate pain, other, or is unable to participate in post op recovery due to pain., Starting on Sat11/11/23 at 1446, For 1 dose, Max: 5 mg for opioid-na??ve patient., Phase ll prochlorperazine (COMPAZINE) injection 5 mg 5 mg, Intravenous, EVERY 6 HOURS PRN, nausea, vomiting, Administer over 1-2 Minutes, Starting on Sat11/11/23 at 1446, Phase ll sodium chloride (PF) 0.9% PF flush 3 mL 3 mL, Intracatheter, EVERY 1 MIN PRN, line flush, other, to ensure patency or to lock dormant line, Starting on Sat11/11/23 at 1446, Pre-procedure sodium chloride (PF) 0.9% PF flush 3 mL 3 mL, Intracatheter, EVERY 1 MIN PRN, line flush, other, to ensure patency or to lock dormant line, Starting on Sat11/11/23 at 1216, Pre-procedure Linked Groups Order Group 1: ondansetron (ZOFRAN ODT) ODT tab 4 mgJump to med 4 mg, Oral, EVERY 30 MIN PRN, nausea, Starting on Sat11/11/23 at 1446, For 2 doses, MAX total dose = 8 mg, including OR dosing. If not resolved in 15 minutes, then go to step 2 [prochlorperazine (COMPAZINE), if ordered]. With dry hands, peel back foil backing and gently remove tablet. Do not push oral disintegrating tablet through foil backing. Administer immediately on tongue and oral disintegrating tablet dissolves in seconds, then swallow with saliva. Liquid not required., Phase ll Or ondansetron (ZOFRAN) injection 4 mgJump to med 4 mg, Intravenous, EVERY 30 MIN PRN, nausea, Administer over 2-5 Minutes, Starting on Sat11/11/23 at 1446, For 2 doses, MAX total dose = 8 mg, including OR dosing. If not resolved in 15 minutes, then go to step 2 [prochlorperazine (COMPAZINE), if ordered]. Irritant., Phase ll Group 2: ondansetron (ZOFRAN ODT) ODT tab 4 mgJump to med 4 mg, Oral, EVERY 6 HOURS PRN, nausea, vomiting, Starting on Sat11/11/23 at 1446, This is Step 1 of nausea and vomiting management. If nausea not resolved in 15 minutes, go to Step 2 prochlorperazine (COMPAZINE). Do not push through foil backing. Peel back foil and gently remove. Place on tongue immediately. Administration with liquid unnecessary With dry hands, peel back foil backing and gently remove tablet. Do not push oral disintegrating tablet through foil backing. Administer immediately on tongue and oral disintegrating tablet dissolves in seconds, then swallow with saliva. Liquid not required. Or ondansetron (ZOFRAN) injection 4 mgJump to med 4 mg, Intravenous, EVERY 6 HOURS PRN, nausea, vomiting, Administer over 2-5 Minutes, Starting on Sat11/11/23 at 1446, This is Step 1 of nausea and vomiting management. If nausea not resolved in 15 minutes, go to Step 2 prochlorperazine (COMPAZINE). Irritant. documented in this encounter Care Teams Special Assemblies Supervisor Relationship Specialty Start Date End Date Latanya Green PCP - General Family Practice 04/19/14 documented as of this encounter
--- OUTSIDE RECORDS SUMMARY | 2024-01-10 07:49 | XMS_ITS | Encounter Summary ---
Author Organization [facility] Address [address] [place] [address]. [place] [address] Care Team Providers Care Mobile Solutions Architect Name Role Phone Latanya Green Primary Care Provider [phone] Reason for Visit * Auth/Cert (Routine) Specialty Diagnoses / Procedures Referred By Carlos t Referred To Contact Surgery Diagnoses Acute diarrhea Pancreatic insufficiency Acute diarrhea [R19.7] Pancreatic insufficiency [K86.89] Procedures NH ENDOSCOPIC US EXAM, ESOPH NH UPPR GI ENDOSCOPY W/US FN BX NH EGD INTRMURAL NEEDLE ASPIR/BIOP ALTERED ANATOMY NH EDG US EXAM SURGICAL ALTER STOM DUODENUM/JEJUNUM Endoscopic ultrasound, Upper tract [facility] [address] [place] [address] Referral ID Status Reason Start Date Expiration Date Visits Re quested Visits Authorized [id number] 1 1 Encounter Details Date Type Department Care Team (Late st Contact Info) Description 11/11/2023 2:17 PM CDT Anesthesia Event [facility] [address] [place] [address] Bennie Silva MD [facility] [place] ANESTHESIA [address] [place], [place] [address] Sun Paulino MD [facility] [place] [address] [place], [place] [id number] Anesthesia Record Procedure Summary Procedure Name Responsible Anesthesiologist Anesthesia Start Time Anesthesia Stop Time Endoscopic ultrasound, upper tract (Mouth) Bennie Silva MD 11/11/23 1417 11/11/23 1443 Events Date Time Event Comment 11/11/2023 1238 1402 Anesthesia Ready for Procedu re 1407 CO FOUNDER AND DIRECTOR Ready for Procedure 1417 An Start 1419 An Start Data 1419 MD Present 1421 AN REASSESS I attest that I have identified and re-evaluated the patient immediately before the induction of anesthesia and I am satisfied that the anesthetic plan is suitable for the patient's condition and procedure. The first vital signs recorded are pre- induction. Kennedy Yang APRN CO FOUNDER AND DIRECTOR 1423 MD Present 1424 Timeout 1426 AN INCISION 1435 an stop data 1439 MD Present 1443 An Stop Electronically signed by Kennedy Yang APRN CO FOUNDER AND DIRECTOR on November 11, 2023 2:43 PM 1443 MD Present Meds Name Total midazolam 1 mg/mL 2 mg lidocaine 2% 40 mg propofol 10 mg/mL 40 mg propofol drip mcg/kg/min 148.05 mg dexamethasone (DECADRON) 4 mg/mL 4 mg ondansetron 2 mg/mL 4 mg lactated ringers infusion 400 mL * Agents Name O2 N2O Air Exp Sevoflurane Exp Isoflurane Exp Desflurane Ins Sevoflurane Ins Isoflurane Ins Desflurane * Blood No blood administrations on file. Lines, Drains, and Airways Type Details Placement Removal Incision/Surgical Site 09/14/15; 1430; R ight; Knee 09/14/15 1430 by Martha Newman RN Incision/Surgical Site 11/11/23; 1435; mouth 1435 by Lisa Zhang RN Peripheral IV 11/11/23; 1254; 20 G ; Left; Hand; Chlorhexidine; None; 1; Tolerated well 11/11/23 1254 by Evelyn Hernández RN 11/11/23 1545 by Manjula Barrios RN documented in this encounter Social History Tobacco Use Types Packs/Day Years Used Date Smoking Tobacco: Never Alcohol Use Standard Drinks/Week Comments Yes 0 (1 standard drink = 0.6 oz pur e alcohol) 2X/ MONTHLY Adolescent Education Answer Date Record ed Getting School Help Needed Not on file 11/10 Sex and Gender Information Value Date Recorded Sex Assigned at Not on file Gender Identity Not on file Sexual Orientation Not on file documented as of this encounter OR Notes * Anesthesia Postprocedure Evaluation - Bennie Silva MD - 11/11/2023 3:14 PM CDT Patient: Marlys Alvarez Procedure: Procedure(s): Endoscopic ultrasound, Upper tract Anesthesia Type: MAC Note: Disposition: Outpatient Postop Pain Control: Uneventful Sign Out: Well controlled pain PONV: No Neuro/Psych: Uneventful Sign Out: Acceptable/Baseline neuro status Airway/Respiratory: Uneventful Sign Out: Acceptable/Baseline resp. status CV/Hemodynamics: Uneventful Sign Out: Acceptable CV status; No obvious hypovolemia; No obvious fluid overload Other NRE: NONE DID A NON-ROUTINE EVENT OCCUR? No Last vitals: Vitals Value Taken Time BP 116/63 11/11/23 1500 Temp 98.4 ??F (36.9 ??C) 11/11/23 1440 Pulse 63 11/11/23 1500 Resp 16 11/11/23 1440 SpO2 96 % 11/11/23 1510 Vitals shown include unfiled device data. Electronically Signed By: Bennie Silva MD November 11, 2023 3:14 PM * Anesthesia Preprocedure Evaluation - Sun Paulino MD - 11/11/2023 12:32 PM CDT Anesthesia Pre-Procedure Evaluation Patient: Marlys Alvarez : 1950 Procedure : Procedure(s): Endoscopic ultrasound, Upper tract Past Medical History: Diagnosis Date Adenomatous colon polyp 07/12/2014 repeat in 5 years Allergic bronchitis Allergic bronchitis, mild intermittent, uncomplicated Allergic rhinitis Arthritis right knee Gastro-oesophageal reflux disease Herpes zoster without mention of complication Hypertension Left peroneal vein thrombosis (H) Low back pain Major depressive disorder, recurrent episode, in full remission (H24) Other chronic pain PONV (postoperative nausea and vomiting) Uncomplicated asthma Past Surgical History: Procedure Laterality Date ARTHROPLASTY KNEE Right 09/14/15 Dr. Flores [facility] ARTHROPLASTY KNEE Right 09/14/2015 Procedure: ARTHROPLASTY KNEE; Surgeon: Kennedy Flores MD; Location: [facility] OR ARTHROPLASTY REVISION ANKLE Left 05/10/2014 Procedure: ARTHROPLASTY REVISION ANKLE; Surgeon: Crys Ta MD; Location: [facility] CARPAL TUNNEL RELEASE RT/LT Bilateral COLONOSCOPY D & C 1984 HYSTERECTOMY TOTAL ABDOMINAL, BILATERAL SALPINGO-OOPHORECTOMY, COMBINED 1985 LAPAROSCOPY DIAGNOSTIC (CAT HOOKER) 1985 pelvic ORTHOPEDIC SURGERY Left 04/2014 / revision of replacement ORTHOPEDIC SURGERY pt has had approx 15 surgeries on left ankle Allergies Allergen Reactions [place] Unknown NOTED FROM ALLERGY TESTING Cats FUR, DANDER, SALIVA Codeine Nausea and Unknown TYLENOL #3 - THINKS REACTION IS NIGHTMARES, BUT UNSURE CAN TAKE PERCOCET OR VICODIN WITHOUT ISSUES Dicloxacillin Other (See Comments) HEARTBURN PCN IS OK. HAS TAKEN WITHOUT REACTION Dust Mites Other (See Comments) SNEEZING AND WHEEZING Mold Other (See Comments) SNEEZING AND WHEEZING Morphine Nausea and Vomiting Latex Itching and Rash No lip swelling or anaphylaxsis Social History Tobacco Use Smoking status: Never Smokeless tobacco: Not on file Substance Use Topics Alcohol use: Yes Comment: 2X/ MONTHLY Wt Readings from Last 1 Encounters: 11/11/23 98.7 kg (217 lb 9.6 oz) Anesthesia Evaluation Pt has had prior anesthetic. Type: Regional and General. History of anesthetic complications - PONV. ROS/MED HX ENT/Pulmonary: (+) Intermittent, asthma (-) recent URI Neurologic: - neg neurologic ROS Cardiovascular: (+) hypertension- - - - - (-) CAD and stent METS/Exercise Tolerance: Hematologic: Musculoskeletal: (+) arthritis, GI/Hepatic: Comment: Diarrhea, iliitis, pancreatic insufficiency (+) GERD, Asymptomatic on medication, Renal/Genitourinary: - neg Renal ROS Endo: (+) Obesity, Psychiatric/Substance Use: (+) psychiatric history depression Recreational drug usage: Cannabis. Infectious Disease: Malignancy: Other: (+) , H/O Chronic Pain, Physical Exam Airway Mallampati: II TM distance: > 3 FB Neck ROM: full Mouth opening: > 3 cm Respiratory Devices and Support Dental (+) Modest Abnormalities - crowns, retainers, 1 or 2 missing teeth Cardiovascular cardiovascular exam normal Rhythm and rate: regular and normal Pulmonary pulmonary exam normal breath sounds clear to auscultation OUTSIDE LABS: CBC: Lab Results Component Value Date HGB 10.4 (L) 09/17/2015 HGB 9.9 (L) 09/16/2015 PLT 220 09/17/2015 PLT 236 09/14/2015 BMP: Lab Results Component Value Date NA 139 09/15/2015 POTASSIUM 4.5 09/15/2015 CHLORIDE 105 09/15/2015 CO2 26 09/15/2015 BUN 15 09/15/2015 CR 0.88 09/17/2015 CR 0.74 09/15/2015 GLC 126 (H) 09/15/2015 COAGS: No results found for: PTT, INR, FIBR POC: Lab Results Component Value Date BGM 84 05/12/2014 HEPATIC: No results found for: ALBUMIN, PROTTOTAL, ALT, AST, GGT, ALKPHOS, BILITOTAL,BILIDIRECT, DEA OTHER: Lab Results Component Value Date EDITA 8.0 (L) 09/15/2015 Anesthesia Plan ASA Status: 2 NPO Status: NPO Appropriate Anesthesia Type: MAC. - Reason for MAC: straight local not clinically adequate Consents Anesthesia Plan(s) and associated risks, benefits, and realistic alternatives discussed. Questions answered and patient/chemical sales representative(s) expressed understanding. - Discussed: - Discussed with: Patient - Extended Intubation/Ventilatory Support Discussed: No. - Patient is DNR/DNI Status: No Use of blood products discussed: No . Postoperative Care Pain management: IV analgesics, Oral pain medications, Multi-modal analgesia. PONV prophylaxis: Ondansetron (or other 5HT-3) Comments: Sun Paulino MD I have reviewed the pertinent notes and labs in the chart from the past 30 days and (re)examined the patient. Any updates or changes from those notes are reflected in this note. # Obesity: Estimated body mass index is 30.35 kg/m?? as calculated from the following: Height as of this encounter: 1.803 m (5' 11). Weight as of this encounter: 98.7 kg (217 lb 9.6 oz). documented in this encounter Miscellaneous Notes * Anesthesia Care Transfer Note - Kennedy Yang APRN CO FOUNDER AND DIRECTOR - 11/11/2023 2:43 PM CDT Patient: Marlys Alvarez Procedure: Procedure(s): Endoscopic ultrasound, Upper tract Diagnosis: Acute diarrhea [R19.7] Pancreatic insufficiency [K86.89] Diagnosis Additional Information: No value filed. Anesthesia Type: MAC Note: Oropharynx: spontaneously breathing and oropharynx clear of all foreign objects Level of Consciousness: awake and drowsy Oxygen Supplementation: face mask Level of Supplemental Oxygen (L/min / FiO2): 6l Independent Airway: airway patency satisfactory and stable Dentition: dentition unchanged Vital Signs Stable: post-procedure vital signs reviewed and stable Report to RN Given: handoff report given Patient transferred to: Phase II Comments: Ptto phase 2 recoverry, VSS, report to RN Handoff Report: Identifed the Patient, Identified the Reponsible Provider, Reviewed the pertinent medical history, Discussed the surgical course, Reviewed Intra-OP anesthesia mangement and issues during anesthesia, Set expectations for post-procedure period and Allowed opportunity for questions andacknowledgement of understanding Vitals: Vitals Value Taken Time BP 121/57 11/11/23 1440 Temp 98.4 ??F (36.9 ??C) 11/11/23 1440 Pulse 60 11/11/23 1440 Resp SpO2 97 % 11/11/23 1442 Vitals shown include unfiled device data. Electronically Signed By: Kennedy Yang APRN CO FOUNDER AND DIRECTOR November 11, 2023 2:43 PM documented in this encounter Plan of Treatment Not on file documented as of this encounter Visit Diagnoses Not on filedocumented in this encounter Administered Medications Inactive Administered Medications - up to 3 most recent administrations Medication Order MAR Action Action Date Dose Rate Site dexAMETHasone (DECADRON) injection Intravenous, PRN, Administer over 1 Minutes, Starting on Sat11/11/23 at 1422, Anesthesia Intra-op $Given 11/11/2023 2:22 PM CDT 4 mg lactated ringers infusion at 10 mL/hr, Intravenous, CONTINUOUS, IF patient NOT on dialysis., Pre-procedure, Starting on Sat11/11/23 at 1230, Until Sat11/11/23 at 1753 Restarted 11/11/2023 1:51 PM CDT $New Bag 11/11/2023 12:55 PM CDT 10 mL/hr lidocaine 2% injection (MDV) Intravenous, PRN, Starting on Sat11/11/23 at 1422, Anesthesia Intra-op $Given 11/11/2023 2:22 PM CDT 40 mg midazolam (VERSED) injection Intravenous, Administer over 2 Minutes, PRN, Starting on Sat11/11/23 at 1417, Anesthesia Intra-op $Given 11/11/2023 2:17 PM CDT 2 mg ondansetron (ZOFRAN) injection Intravenous, PRN, Administer over 2-5 Minutes, Starting on Sat11/11/23 at 1422, Anesthesia Intra-op $Given 11/11/2023 2:22 PM CDT 4 mg propofol (DIPRIVAN) infusion Intravenous, CONTINUOUS PRN, Starting on Sat11/11/23 at 1425, Anesthesia Intra-op Rate/Dose Change 11/11/2023 2:31 PM CDT 75 mcg/kg/min 44.415 mL/hr $New Bag 11/11/2023 2:25 PM CDT 100 mcg/kg/min 59.22 mL/ hr propofol (DIPRIVAN) injection 10 mg/mL vial Intravenous, PRN, Starting on Sat11/11/23 at 1425, Anesthesia Intra-op $Given 11/11/2023 2:25 PM CDT 40 mg documented in this encounter Care Teams Mobile Solutions Architect Relationship Specialty Start Date End Date Latanya Green PCP - General Family Practice 04/19/14 documented as of this encounter
--- OUTSIDE RECORDS SUMMARY | 2024-01-10 07:49 | XMS_ITS | Encounter Summary ---
Author Organization [facility] Address [address] [place] [address] Care Team Providers Care Sales Representative Publications Name Role Phone Unavailable Primary Care Provider Unavailabl e Encounter Details Date Type Department Care Team (Late st Contact Info) Description 05/12/2015 Historical Ophthalmology [facility] O[facility] Fidel De Souza M.D. [address] [place] [id number] Social History Tobacco Use Types Packs/Day Years Used Date Smoking Tobacco: Never Assessed Sex and Gender Information Value Date Recorded Sex Assigned at Not on file Gender Identity Not on file Sexual Orientation Not on file documented as of this encounter Progress Notes * Fidel De Souza M.D. - 05/12/2015 9:53 AM CDT Eye General CHIEF COMPLAINT Here for debridement left eye. HISTORY OF PRESENT ILLNESS No changes since visit last week. IMPRESSION / REPORT / PLAN #1 Blurred vision, left eye Secondary to #2. #2 Irregular astigmatism, left eye From corneal surface and subtle scar vs. ABMD? She had RGP over-refraction locally and this improved her vision. #3 Corneal opacity, left eye Not classic ABMD or deposition. Discussed possibility of removing/polishing versus observation versus RGP fitting. Plan: Corneal epi debridement left eye, minor room, topical Discussed risks, goals, alternatives, advance directives, and the necessity of other members of thehealthcare team participating in the procedure with the patient (or legal floor representative and otherspresent during the discussion). The patient understands. All questions answered and consent given. #4 Pseudophakia, left eye Looks good and stable. #5 Cataract, right eye Observe for now. DIAGNOSIS #1 Blurred vision, left eye #2 Irregular astigmatism, left eye #3 Corneal opacity, left eye #4 Pseudophakia, left eye #5 Cataract, right eye CDM Reports - EYEGEN Id: [id number] Status: Fnl documented in this encounter Plan of Treatment Not on file documented as of this encounter Visit Diagnoses Not on filedocumented in this encounter
--- OUTSIDE RECORDS SUMMARY | 2024-01-10 07:49 | XMS_ITS | Continuity of Care Document ---
Author Organization [facility] Address [address] [place] [address] Phone Care Team Providers Care Front End Loader Operator Name Role Phone Estrella ESCALONA, PhD, Yamil [...] HCL (unknown strength) Not Available - Active ALAWAY (unknown strength) Not Available - Active CYMBALTA (unknown strength) Not Available - Active ESTRADIOL (unknown strength) Not Available - Active FAMOTIDINE (unknown strength) Not Available - Active HYDROXYZINE PAMOATE (unknown strength) Not Available - Active ROSUVASTATIN CALCIUM (unknown strength) Not Available - Active SENNA (unknown strength) Not Available - A ctive AMLODIPINE BESYLATE (unknown strength) Not Available - Active AMITRIPTYLINE HCL (unknown strength) Not Available - Active PROAIR HFA (unknown strength) Not Available - Active BENADRYL (unknown strength) Not Available - Active FLONASE ALLERGY RELIEF (unknown strength) Not Available - Active GABAPENTIN (unknown strength) Not Available - Active KETOCONAZOLE (unknown strength) Not Available - Active ZYRTEC (unknown strength) Not Available - Active BACLOFEN (unknown strength) Not Available - Active Procedures Procedure Date Office/Outpatient Visit,Est, Mod 2022 Office/Outpatient Visit,Est, Mod 2022 Office/Outpatient Visit,Est, Mod [...] C, [address], [place], [place], [id number], [place] tel:[phone] [facility] No Information Estrella Lobo. [facility] [place], [address], [place], [address], [place]. tel:[phone] Office/Outpat ient Visit,Est, Mod [facility], [address], [place], [place], [id number], [place] tel:[phone] [facility] Spinal stenosis, lumbar region with neurogenic claudication Estrella Lobo. [facility] [place], [address], [place], [address], [place]. tel:[phone] Ref[facility]: [facility] [address], [place], [address]. tel:[phone] Office/Outpat ient Visit,Est, Mod [facility], [address], [place], [place], [id number], [place] tel:[phone] [facility] Spinal stenosis, lumbar region with neurogenic claudication Estrella Lobo. [facility] [place], [address], [place], [address], [place]. tel:[phone] Referring Provider: Donald Marin [facility] [address], [place], [address]. tel:[phone] Office/Outpat ient Visit,Est, Mod [facility], [address], [place], [id number], [place] tel:[phone] [facility] Spondylolisthe sis, lumbar region Estrella Lobo. [facility] [place], [address], [place], [address], [place]. tel:[phone] Referring Provider: Donald Marin, Rola [facility] [address], [place], [address]. tel:[phone] Office/Outpat ient Visit,Est, Mod [facility], [address], [place], [place], [id number], [place] tel:[phone] [facility] No Information Estrella Lobo. [facility] [place], [address], [place], [address], [place]. tel:[phone] Referring Provider: [address], [place], [address]. tel:[phone] Office/Outpat ient Visit,Est, Mod [facility], [address], [place], [id number], [place] tel:[phone] [facility] Pain in unspecified lower leg Estrella Lobo. [facility] [place], [address], [place], [address], [place]. tel:[phone] Referring Provider: Rola Swartz [facility] [address], [place], [address]. tel:[phone] Office/Outpat ient Visit,Est, Low [facility], [address], [place], [id number], [place] tel:[phone] [facility] No Information Estrella Lobo. [facility], [address], [place], [address], [place]. tel:[phone] Referring Provider: Donald Marin, [facility] [address] [facility], [place], [address]. tel:[phone] Office/Outpat ient Visit,Est, Mod [facility], [address], [place], [id number], [place] tel:[phone] [facility] Spinal stenosis, lumbar region with neurogenic claudication Estrella Lobo. [facility], [address], [place], [address], [place]. tel:[phone] Referring Provider: Donald Marin, [employer] [facility] [address] [facility], [place], [address]. tel:[phone] Office/Outpat ient Visit,New, Mod [facility], [address], [place], [place], [id number], [place] tel:[phone] [facility] Spinal stenosis, lumbar region with neurogenic claudication Estrella Lobo. [facility], [address], [place], [address], [place]. tel:[phone] Referring Provider: Donald Marin, [employer] [facility] [address] [facility], [place], [address]. tel:[phone] Family History Family Member Type Diagnosis Age At Onset No Information Payers Payer name Insurance type Covered democrat ID Albert egan(s) [facility] [id number] Medicare [facility] [id number] 1 Social History Type Description Quantity Date [...]
--- OUTSIDE RECORDS SUMMARY | 2024-01-10 07:49 | XMS_ITS | Encounter Summary ---
Author Organization [facility] Address [address] [place] [address] Care Team Providers Care Golf Superintendent Name Role Phone Unavailable Primary Care Provider Unavailabl e Encounter Details Date Type Department Care Team (Late st Contact Info) Description 05/16/2015 Historical Ophthalmology [facility] OPH Fidel De Souza M.D. [address] [place] [address] Social History Tobacco Use Types Packs/Day Years Used Date Smoking Tobacco: Never Assessed Sex and Gender Information Value Date Recorded Sex Assigned at Not on file Gender Identity Not on file Sexual Orientation Not on file documented as of this encounter Progress Notes * Fidel De Souza M.D. - 05/16/2015 9:04 AM CDT Eye General CHIEF COMPLAINT s/p debridement left eye. HISTORY OF PRESENT ILLNESS Contact lens fell out Saturday night, replaced by local linux server engineer. Left eye comfortable. Vision notas clear as before procedure. IMPRESSION / REPORT / PLAN #1 s/p epi debridement BCL fell out and was replaced. Now removed BCL. Plan: D/c antibiotics. Use artificial tears prn. Recheck in 2 months with [facility]. DIAGNOSIS #1 s/p epi debridement CDM Reports - EYEGEN Id: [id number] Status: Fnl documented in this encounter Plan of Treatment Not on file documented as of this encounter Visit Diagnoses Not on filedocumented in this encounter
--- OUTSIDE RECORDS SUMMARY | 2024-01-10 07:49 | XMS_ITS | Encounter Summary ---
Author Organization [place] Address [address] [place] [address]. [place] [address] Care Team Providers Care Smart Grid Engineer Name Role Phone Norma Latanya Primary Care Provider [phone] Encounter Details Date Type Department Care Team (Latest Contact Info) Description 11/11/2023 Travel Social History Tobacco Use Types Packs/Day Years [...] on file documented as of this encounter Plan of Treatment Not on file documented as of this encounter Visit Diagnoses Not on filedocumented in this encounter Care Teams Smart Grid Engineer Relationship Specialty Start Date End Date Latanya Green PCP - General Family Practice 04/19/14 documented as of this encounter
--- OUTSIDE RECORDS SUMMARY | 2024-01-10 07:49 | XMS_ITS | Clinical Summary ---
Author Organization [facility] Address [place], [place] [address] Care Team Providers Care Toy Mechanic Name Role Phone Magalie Ta MD Unavailable [phone] Latanya Green MD Primary Care Provide r Donald Simon MD Unavailable [phone] Allergies Active Allergy Reactions Criticality Noted Date Comments Acetaminophen Hives Low 04/03/2021 Nash Allergenic Extracts Wheezing Low 03/15/2021 Cats (Fur, Dander, Saliva) Shortness Of Breath,Wheezing 06/29/2013 Clove Oil Other - Describe In Comment Field High 03/15/2021 Clove Oil-Witch [place] Other - Describe In Comment Field 10/19/2019 Pain and swelling with dry socket packing Dicloxacillin GI Upset 06/03/2023 severe heartburn House Dust Hydrocodone Itching 08/04/2019 Latex Rash 06/03/2023 Mold Extracts Morphine Nausea And Vomiting,Nightmare s 06/03/2023 Ragweed Itching 03/31/2015 Unlisted Allergen (Include Detail In Comments) SILK also lataex sensatiavity Medications Medication Sig Dispensed Refills Start Date End Date Status cholecalciferol (VITAMIN D-3) 2,000 unit capsule Take 1 capsule by mouth once daily. 0 10/28/2012 Active cetirizine (ZYRTEC) 10 mg tabletIndications:S easonal allergies Take 1 tablet by mouth once daily. 90 tablet 3 07/08/2015 Active diphenhydrAMINE (BENADRYL) 50 mg capsuleIndications: Insomnia, unspecified type Take 1 capsule by mouth every 6 hours if needed. As needed sleep 0 12/01/2015 Active ketotifen (ALAWAY) 0.025 % (0.035 %) ophthalmic solutionIndications :Allergic conjunctivitis, bilateral Place 1 Drop into both eyes 2 times daily. 1 Bottle 3 07/17/2018 Active fluticasone (50 mcg per actuation) nasal solution (FLONASE)Indication s:Allergic rhinitis due to animal hair and dander Inhale 2 Sprays into both nostrils once daily. .This replaces all other scripts for this medication. 3 Bottle 07/21/2018 Active acetaminophen (TYLENOL EXTRA STRGTH) 500 mg tablet Take 1,000 mg by mouth every 6 hours if needed. Active melatonin 5 mg tab tablet Take 5 mg by mouth once daily if needed. Active Lactobacillus acidophilus 10 billion cell cap Take by mouth. 06/03/2023 Acti ve calcium carbonate (CALTRATE) 600 mg calcium (1,500 mg) tabletIndications:H ealthcare maintenance Take 2 Tablets (1,200 mg) by mouth two times daily with meals. 08/16/2023 Active multivitamin (MVI) tabletIndications:H ealthcare maintenance Take 1 Tablet by mouth once daily. 08/16/2023 Active medication order composer THC gummys dose 5 mg taken through oral route 1 time a day as needed 09/10/2023 Active albuterol 0.083% (2.5 mg/3 mL) neb solutionIndications :Moderate persistent reactive airway disease with acute exacerbation Inhale 3 mL (2.5 mg) via a nebulizer every 4 hours if needed for Cough 1st choice or Shortness of Breath 2nd choice. 75 mL 3 09/10/2023 Active fluticasone propionate (FLOVENT) 220 mcg/Actuation inhalerIndications: Moderate persistent reactive airway disease with acute exacerbation Inhale 1 Puff by mouth two times daily. 3 Each 3 09/10/2023 Active albuterol HFA (ProAir HFA) 90 mcg/actuation inhalerIndications: Bronchitis,Moderate persistent asthma, unspecified whether complicated Inhale 2 Puffs by mouth every 4 hours if needed for Shortness Of Breath or Wheezing. 1 Each 3 09/10/2023 Active codeine-guaiFENesin (ROBITUSSIN AC) 10-100 mg/5 mL liquidIndications:B ronchitis Take 10 mL by mouth every 6 hours if needed for Cough. Max dose 60 mL per 24 hrs. 237 mL 1 09/10/2023 Active amoxicillin (AMOXIL) 500 mg capsuleIndications: History of left ankle joint replacement Take 4 Capsules (2,000 mg) by mouth one time if needed (prior to procedure) for up to 4 doses. TAKE 4 CAPSULES BY MOUTH 1 HOUR BEFORE PROCEDURE. 4 Capsule 3 10/08/2023 Active famotidine (PEPCID) 20 mg tabletIndications:H eartburn Take 1 Tablet (20 mg) by mouth two times daily. 180 Tablet 3 10/08/2023 Active gabapentin (NEURONTIN) 300 mg capsuleIndications: Foot pain, left,Injury of right peroneal nerve, initial encounter TAKE 2 TO 3 CAPSULES BY MOUTH 2 TO 3 TIMES DAILY NEEDED FOR SEVERE PAIN. 720 Capsule 3 10/08/2023 Active DULoxetine (CYMBALTA) 60 mg Delayed-release capsuleIndications: Complex regional pain syndrome type 1 of left lower extremity Take 1 Capsule (60 mg) by mouth two times daily. 180 Capsule 3 10/08/2023 Active amLODIPine (NORVASC) 2.5 mg tabletIndications:H TN (hypertension) Take 1 Tablet (2.5 mg) by mouth once daily. 90 Tablet 3 10/08/2023 Active traZODone (DESYREL) 50 mg tabletIndications:I nsomnia, idiopathic Take 2 Tablets (100 mg) by mouth at bedtime. 180 Tablet 3 10/08/2023 Active rosuvastatin (CRESTOR) 5 mg tabletIndications:H yperlipidemia, unspecified hyperlipidemia type Take 1 Tablet (5 mg) by mouth at bedtime. 90 Tablet 3 10/08/2023 Active imiquimod 5% cream (ALDARA) 5 % cream As directed 1 Packet every Saturday and . 10/15/2023 Active celecoxib (CELEBREX) 100 mg capsuleIndications: Foot pain, right Take 1 Capsule (100 mg) by mouth two times daily with meals. As needed foot pain 30 Capsule 11/19/2023 Active oxyCODONE (ROXICODONE) 5 mg immediate release tabletIndications:L umbar foraminal stenosis,Lumbar radiculopathy,Spina l stenosis, lumbar region, with neurogenic claudication Take 1 Tablet (5 mg) by mouth every 6 hours if needed for Pain. 24 Tablet 12/25/2023 Active traMADoL (ULTRAM) 50 mg tabletIndications:L umbar radiculopathy Take 1 Tablet (50 mg) by mouth once daily. At bedtime 60 Tablet 12/25/2023 Active traMADoL (ULTRAM) 50 mg tabletIndications:L umbar radiculopathy Take 1 Tablet (50 mg) by mouth once daily. At bedtime 30 Tablet 05/14/2023 4 Discontinue d(Reorder (E-cancel not sent)) oxyCODONE (ROXICODONE) 5 mg immediate release tabletIndications:L umbar radiculopathy,Spina l stenosis, lumbar region, with neurogenic claudication,Lumbar foraminal stenosis Take 1 Tablet (5 mg) by mouth every 6 hours if needed for Pain. 20 Tablet 10/08/2023 4 Discontinue d(Reorder (E-cancel not sent)) Active Problems Problem Noted Date Diagnosed Date Depression, major, single episode, moderate 07/22 Vertigo 05/17/2021 Pain of left lower extremity 05/17/2021 Obstructive sleep apnea juan f reagan with continuous positive airway pressure (CPAP) 05/17/2021 Complex regional pain syndro me type 1 of left lower extremity 05/17/2021 Serrated adenoma of colon 09/23/2019 Overview: Colonoscopy 09/2019 serrated adenoma, repeat in 5 years Reactive airway disease with acute exacerbation 07/16/2017 Allergic conjunctivitis of both eyes 01/02/2017 Family history of diabetes mellitus 07/10/2016 Adjustment disorder with depressed mood 07/10/20 16 Status post total right knee replacement 016 Gastroesophageal reflux disease 07/14/2015 Overview: EGD 07/2019 reflux on biopsy Left peroneal vein thrombosis 11/02/2014 Adenomatous colon polyp 07/12/2014 Overview: Colonoscopy 06/2014 polyp repeat in 5 years Status post left ankle joint replacement 014 Allergic bronchitis 05/28/2013 Herpes zoster without mention of complication Resolved Problems Problem Noted Date Diagnosed Date Resolved Date Chronic bronchitis 08/05/2020 3 GE reflux 05/28/2013 07/14/2015 Major depressive disorder, r ecurrent episode, in full remission 01/27/2007 07/10/2016 JOINT PAIN - RIGHT ELBOW 08/20/200501/2013 Pain in joint, shoulder region 07/25/2005 05/28/2013 Encounters Date Type Department Care Team Description 12/25/2023 10:20 AM CDT Office Visit [facility] [address] [place] [address] Donald Simon MD Follow Up (Lower back pain) 12/25/2023 Travel 11/19/2023 2:40 PM CDT Office Visit [facility] [address] [place] [address] Latanya Green MD Foot Injury (Right foot 11/13/23 Has been wearing a boot. Was able to put on a shoe today/Imaging: Findings: No acute fracture or dislocation. Mild to moderate polyarticular osteoarthritis. Moderate-sized plantar and dorsal calcaneal spur. /) 11/19/2023 Travel 11/14/2023 9:00 AM CDT Ancillary Procedure [facility] [address] [place] [address] 11/14/2023 8:35 AM CDT Office Visit [address] [address] Carolina Cruz PA Foot Problem 11/14/2023 Travel 11/14/2023 Nurse Triage [address] [address] Latanya Green MD Foot Pain/problem 10/29/2023 8:25 AM CDT Preop Visit [address] [address] Latanya Green MD Pre-Op Exam (US of pancreas at [facility], 11/11/23) 10/29/2023 Travel from Last 3 Months Immunizations Name Administration Dates Next Due AMB Influenza, IIV3 (Age >=3 years) Preserve Free (Flu Clinic Only) 06/01/2013 AMB Influenza, IIV4 PF (=>6 mos Flulaval,Fluzone Fluarix)(Flu Clinic Only) 04/14/2014 COVID-19 vaccine (Moderna 100mcg/0.5mL) PF, MDV 10/30/2021,06/01/2021,10/01/2020,09/03 COVID-19 vaccine ([employer]-Bio NTech 30mcg/0.3mL) 12YO+ BIVALENT PF, MDV 11/30/2022 Hepatitis A (Adult) 07/02/1996,12/05/1995 Hepatitis B (Adult) 01/30/1999,07/28/1998,1997 Hepatitis B (Peds) 01/30/1999,07/28/1998, 998 Immune Globulin Intramuscular 10/01/1994 Inactivated Polio Vaccine 12/05/1995 Influenza, High-dose Inactivated 020,05/26/2019,06/05/2018,07/10 Influenza, High-dose Quadriv alent Inactivated 05/08/2022,06/01/2021 Influenza, IIV3 (Age >=3 years) 05/22/2010,05/14,05/28/2007 Influenza, IIV4 05/05/2015 Influenza, IIV4 (=>6mos) MDV 04/21/2017 Influenza, Inactivated AIIV4 (Age 65+ Years) Preserv Free 05/15/2023 Meningococcal Vaccine (Menactra) 12/05/1995 Meningococcal Vaccine (Menomune) 12/05/1995 Meningococcal, Unspecified 12/05/1995 Pneumococcal Poly,23-Valent (Pneumovax) 07/10/2016 Pneumococcal conj 13-Valent (Prevnar 13) 05/05/2015 Polio Virus, Unspecified 12/05/1995 Td (Age >=7 Years) 07/03/2018 Tdap 07/02/2018,05/14/2008 Zoster (Shingrix-RZV, recombinant) 12/15/2019, Zoster (Zostavax-ZVL, live) 04/22/2015 Family History Medical History Relation Name Comments Cancer-prostate Brother Diabetes Brother Hypertension Brother Cancer-prostate Father Arthritis Mother Diabetes Mother ae 65 Hyperlipidemia Mother Hypertension Mother Anesthesia Problem No Family History Blood Disease No Family History Cancer No Family History Cancer-breast No Family History Cancer-colon No Family History Cancer-ovarian No Family History Relation Name Status Comments Brother Daughter Alive Father Mother Social History Tobacco Use Types Packs/Day Years Used Date Smoking Tobacco: Never Smokeless Tobacco: Never Tobacco Cessation:Counseling Given: Yes Comments:non smoking home Alcohol Use Standard Drinks/Week Comments Not Currently 0 (1 standard drink = 0.6 oz pur e alcohol) Socially PHQ-2 Answer Date Recorded PHQ-2 TOTAL SCORE 4 10/08/2023 Social Connections Answer Date Recorded Frequency of Communication with Friends and Fami ly 0 10/08/2023 Financial Resource Strain Answer Date R ecorded Difficulty of Paying Living Expenses 3 10/08/2023 Difficulty of Paying Living Expenses Not on file 10/08/2023 Food Insecurity Answer Date Recorded Worried About Running Out of Food in the Last Ye ar 1 10/08/2023 Transportation Needs Answer Date Record ed Lack of Transportation (Medical) 1 10/08/2023 Housing Stability Answer Date Recorded Unable to Pay for Housing in the Last Year 1 10/08/2023 Sex and Gender Information Value Date Recorded Sex Assigned at Female 07/26/2021 9:18 PM MAIL DELIVERY SUPERVISOR Gender Identity Female 07/26/2021 9:18 PM MAIL DELIVERY SUPERVISOR Sexual Orientation Straight 07/26/2021 9: 18 PM MAIL DELIVERY SUPERVISOR Obstetrics History Para Term AB IAB SAB Ectopic Multiple Livin g Live Births 2 2 2 2 Date Outcome GA Total Labor Labor/2nd/3rd Weight Sex Type Anes PTL Pura A1 A5 Name Clin Term Term Last Filed Vital Signs Vital Sign Reading Time Taken Comments Blood Pressure 116/75 12/25/2023 10:17 AM CDT Pulse 55 12/25/2023 10:17 AM CDT Temperature 36.8 ??C (98.3 ??F) 09/10/2023 2:56 PM CS T Respiratory Rate 18 05/17/2021 12:32 PM CDT Oxygen Saturation 96% 12/25/2023 10:17 AM CDT Inhaled Oxygen Concentration - - Weight 98.4 kg (217 lb) 11/14/2023 8:32 AM CDT Height 180.3 cm (5' 11) 10/08/2023 9:19 AM CDT Body Mass Index 30.27 10/08/2023 9:19 AM CDT Plan of Treatment Upcoming Encounters Date Type Department Care Team (Late st Contact Info) Description 01/10/2024 8:20 AM CDT Office Visit [facility] [address] [place] [address] Donald Simon MD [address] [place] [address] Health Maintenance Due Date Last Done Comments COVID-19 vaccine series ( season) 2023 05/15/2023, 11/30/2022, 05/08/2022, Additional history exists Influenza for age 65+ 03/22/2024 05/15/2023 , 05/08/2022, 06/01/2021, Additional history exists BMI (ht and wt on same day) for age 18+ 10/07/2024 10/08/2023, 09/10/2023, 10/04/2022, Additional history exists Depression screening for age 12+ 10/07/2024 10/08/2023, 10/04/2022, 10/04/2022, Additional history exists Mammogram for age 45-75 10/07/2024 10/08/19, 10/04/2022, 08/15/2021, Additional history exists Medicare Wellness for age 65+ 10/08/2024, 10/04/2022, 08/17/2021, Additional history exists Tetanus booster 07/03/2028 07/03/2018, 06/21, 05/14/2008 Colonoscopy through age 75 07/29/202807/29, 09/22/2019, 09/22/2019, Additional history exists Lipids for age 45-75 08/16/2028 08/16/2023, 10/04/2022, 08/17/2021, Additional history exists Pneumococcal series for age 65+ Completed 6, 05/05/2015 Tdap Completed 07/02/2018, 05/14/2008 Zoster (shingles) series for age 50+ Completed 12/15/2019, 07/19/2019, 04/22/2015 DEXA/DXA scan for age 65+ Completed 2020, 10/07/2015 (Completed outside of [facility]), 05/05/2015, Additional history exists Hepatitis C screening for ag e 18-79 Completed 03/01/2021, 08/04/2019 Procedures Procedure Name Priority Date/Time Associated Diagnosis Comments URIC ACID Routine 11/19/2023 3:44 PM CDT Foot pain, right XR FOOT 3 VIEWS RIGHT Routine 11/14/2023 8:58 AM CDT Foot pain, right XR MAMMO ADAMS BILAT SCREEN Routine 10/08/2023 8:34 AM CDT Encounter for screening mammogram for malignant neoplasm of breast LIPID PANEL W REFLEX MEASURED LDL Routine 08/16/2023 11:28 AM MAIL DELIVERY SUPERVISOR Hyperlipidemia, unspecified hyperlipidemia type SCAN-COLONOSCOPY 07/29/2023 11:0 0 AM MAIL DELIVERY SUPERVISOR ANTI HCV Routine 03/01/2021 11:23 AM CDT Neuropathy associated with hereditary ataxia Encounter for long-term (current) use of other medications Sciatica of left side Paresthesia Lesion of medial popliteal nerve XR DXA BONE DENSITY 2 SITES AXIAL Routine 08/08/2020 10:05 AM MAIL DELIVERY SUPERVISOR Post-menopausal from Last 3 Months or Most Recently Relevant to Health Maintenance Results * URIC ACID (11/19/2023 3:44 PM CDT) URIC ACID 4.9 2.4 - 5.7 mg/dL 11/20/2023 3:08 PM CDT [facility] Blood BLOOD SPECIMEN / Unknown Venipuncture / Unknown 11/19/2023 3:44 PM CDT 11/19/2023 3:46 PM CDT Latanya Green MD CHEMISTRY [facility] [address] [place] [address], [place] * XR FOOT 3 VIEWS RIGHT (11/14/2023 8:58 AM CDT) Anatomical Region Laterality Modality FEET, FOOT R Computed Radiogr aphy 11/14/2023 1:43 PM CDT Narrative 11/14/2023 1:43 PM CDT For Patients: ??As a result of the Cures Act, medical imaging exams and procedure reports are released immediately into your electronic medical record. ??You may view this report before your referring provider. ??If you have questions, please contact your health care provider. Indication: Right foot pain. Technique: Three views of the right foot. Comparison: Previous exam from 10/09/2021. Findings: No acute fracture or dislocation. Mild to moderate polyarticular osteoarthritis. Moderate-sized plantar and dorsal calcaneal spur. Impression: As above. Dictated by Hal De Souza MD @ 11/14/2023 1:43:15 PM (Electronically Signed) Procedure Note Hal De Souza, DO - 11/14/2023 For Patients: As a result of the Cures Act, medical imagingexams and procedure reports are released immediately into your electronicmedical record. You may view this report before your referring provider.If you have questions, please contact your health care provider. Indication: Right foot pain. Technique: Three views of the right foot. Comparison: Previous exam from 10/09/2021. Findings: No acute fracture or dislocation. Mild to moderate polyarticularosteoarthritis. Moderate-sized plantar and dorsal calcaneal spur. Impression: As above. Dictated by Hal De Souza MD @ 11/14/2023 1:43:15 PM (Electronically Signed) [facility] * XR MAMMO ADAMS BILAT SCREEN (10/08/2023 8:34 AM CDT) Anatomical Region Laterality Modality BREASTS, Breast Left, Breast Right Bilateral Mammography Impressions 10/08/2023 1:55 PM CDT ??There is no radiographic evidence for malignancy. ??Recommend annual mammograms. MAMMOGRAM ASSESSMENT: ??ACR 1 Negative PATIENTS: You will also receive a letter with your examination results in an easy to read format. ??If you have questions about your results, please contact your referring provider. Narrative 10/08/2023 1:55 PM CDT For Patients: As a result of the Century Cures Act, medical imaging exams and procedure reports are released immediately into your electronic medical record. You may view this report before your referring provider. If you have questions, please contact your health care provider. XR MAMMO ADAMS BILAT SCREEN [[id number]] CLINICAL HISTORY: ??This is an asymptomatic 73 y.o. patient. INDICATION FOR EXAM: Mammogram Screening. TECHNIQUE: CC & MLO views were obtained. ??This study was evaluated with the assistance of Computer-Aided Detection. Breast Tomosynthesis was used in interpretation. COMPARISON FILM: Yes 10/04/22 [facility] 08/15/21 [facility] FINDINGS: ??The breasts have scattered areas of fibroglandular density. There are no dominant masses, suspicious micro calcifications or areas of architectural distortion. Latanya Green MD MAMMO * (ABNORMAL) LIPID PANEL W REFLEX MEASURED LDL (08/16/2023 11:28 AM MAIL DELIVERY SUPERVISOR) CHOLESTEROL,TOTAL 143 100 - 199 mg/dL 08/16/2023 10:10 PM [facility] Comment: Cholesterol, Total Reference Ranges Desirable <200 mg/dL Borderline 200-239 mg/dL High >=240 mg/dL TRIGLYCERIDES 195(H) <150 mg/dL 08/16/2023 10:10 PM MAIL DELIVERY SUPERVISOR [facility] HDL CHOLESTEROL 53 >40 mg/dL 10:10 PM [facility] NON-HDL CHOLESTEROL 90 <145 mg/dl 08/16/2023 10:10 PM [facility] CHOL/HDL RATIO 2.70 <4.50 08/16/2023 10:10 PM [facility] LDL CHOLESTEROL 51 <=130 mg/dL 08/16/2023 10:10 PM MAIL DELIVERY SUPERVISOR [facility] VLDL CHOLESTEROL 39(H) <=30 mg/dL 08/16/2023 10:10 PM MAIL DELIVERY SUPERVISOR [facility] PROVIDER ORDERED STATUS RANDOM 08/16/2023 10:10 PM MAIL DELIVERY SUPERVISOR [facility] Blood BLOOD SPECIMEN / Unknown Butterfly / Unknown 08/16/2023 11:28 AM MAIL DELIVERY SUPERVISOR 08/16/2023 11:29 AM MAIL DELIVERY SUPERVISOR Latanya Green MD CHEMISTRY [facility] [address] [place] [address], [place] * SCAN-COLONOSCOPY (07/29/2023 11:00 AM MAIL DELIVERY SUPERVISOR) Narrative Procedure Note Ministerio Chen DO - 07/29/2023 10:[address] [facility] [address] [place] [address], [address], [place] [address] Patient Name: Marlys Alvarez Gender: Female Exam Date: 07/29/2023 Visit Number: [id number] Age: 73 Years Date of : 1950 Attending MD: Ministerio Chen DO Medical Record#: [id number] Procedure: Colonoscopy Indications: Diarrhea Hx of colon polyps Referring MD: Referral Self Primary MD: Latanya Green MD Medications: Intra Procedure Medications: Patient received monitored anesthesia care. Complications: No immediate complications Procedure: An examination of the heart and lungs was performed and found to be withinacceptable limits. . The patient was therefore deemed a reasonablecandidate for endoscopy and sedation. The risks and benefits of the procedure were explained to the patient.After obtaining informed consent, the patient received monitoredanesthesia care and I passed the scope without difficulty via the rectum to the ileum. The appendiceal orificeand ic valve were identified. The quality of the prep was good(Miralax/Gatorade/2 tablets Bisacodyl/Magnesium Citrate). This was a complete examination throughout the entire colon. Findings: Normal finding. Location - ileum. Polyp location: cecum. Quantity: 1. Size: 4 mm. Polyp shape: sessile. Maneuver: polypectomy was performed with a cold snare. Removal: complete. Retrieval: complete. Bleeding: none. Polyp location: ascending colon. Quantity: 4. Size: 4 -8 mm. Polypshape: sessile. Maneuver: polypectomy was performed with a cold snare . Removal: complete. Retrieval: complete. Bleeding: none. Polyp location: descending colon. Quantity: 1. Size: 5 mm. Polypshape: sessile. Maneuver: polypectomy was performed with a cold snare . Removal: complete. Retrieval: complete. Bleeding: none. Diverticulosis. Location: - descending colon - sigmoid. Description:moderate. Size: medium. Quantity: many. No inflammationpresent. Remainder of the exam is normal. Random biopsies were taken throughout the colon to rule out microscopiccolitis. Impression: Colorectal polyps Diverticulosis of colon without diverticulitis Preliminary Plan: The patient and their physician will receive a copy of the pathologyreport as well as pathology-based recommendations for future screening orsurveillance. Recommendation Comments: - Await pathology results - I will forward your results to Dr. Karimi. Follow up in GI clinic asplanned. Pathology Results: A: COLON, RANDOM, BIOPSY: 1. Normal colonic mucosa 2. Negative for microscopic, active, and chronic colitis B: COLON, CECUM, BIOPSY: 1. Sessile serrated adenoma 2. Negative for overt dysplasia 3. Per the colonoscopy report: a. Polyp size: 4 mm b. Resection: Complete c. Retrieval: Complete C: COLON, ASCENDING, POLYPS: 1. Tubular adenomas (4) 2. Negative for high grade dysplasia 3. Per the colonoscopy report: a. Polyp sizes: 4 mm - 8 mm b. Resection: Complete c. Retrieval: Complete D: COLON, DESCENDING, POLYP: 1. Tubular adenoma 2. Negative for high grade dysplasia 3. Per the colonoscopy report: a. Polyp size: 5 mm b. Resection: Complete c. Retrieval: Complete MICROSCOPIC A: Performed B: Performed. Deeper tissue levels were examined. C: Performed D: Performed SPECIAL STAINING/DEEPER B: Deeper D: Deeper Electronically signed by: Dorohty Morley DO Interpreted at [facility], [address] [place], [place] Orders Instruction(s)/Education: Instruction/Education Timeframe Assessment Colon Cancer Prevention K63.5 Colon Polyps K63.5 Diverticulosis/Diverticulitis K57.30 High Fiber Diet K57.30 Final Plan: Repeat colonoscopy in 3 years. We will attempt to contact you at appropriate intervals via U.S. mail. Wemay not be able to find you or contact you at that time, therefore youshould know that the responsibility for following our recommendation restswith you. If you don't hear from us at the time your procedure is due,please contact our office to schedule an appointment. If your contactinformation should change, please contact our office so that we can updateyour record. _Electronically signed by: Ministerio Chen DO 07/29/2023 cc: Latanya Green MD cc: Bernabe Karimi MD Ministerio Chen DO OTHER * ANTI HCV (03/01/2021 11:23 AM CDT) HEPATITIS C ANTIBODY Non-React james Non-React james 03/01/2021 5:46 PM CDT [facility] Comment:Antibodies to HCV no t detected; does not exclude the possibility of exposure to HCV. Blood BLOOD SPECIMEN / Unknown Venipuncture / Unknown 03/01/2021 11:23 AM CDT 03/01/2021 11:23 AM CDT Latanya Green MD SEND OUTS [facility] [facility] [address] [place] [address], * XR DXA BONE DENSITY 2 SITES AXIAL (08/08/2020 10:05 AM MAIL DELIVERY SUPERVISOR) Anatomical Region Laterality Modality Spine, HIPS, HIPL, HIPR Other Narrative 08/10/2020 2:44 PM MAIL DELIVERY SUPERVISOR Please see scanned document for results of this study. Latanya MCMULLEN from Last 3 Months or Most Recently Relevant to Health Maintenance Advance Directives Documents on File Type Date Recorded Patient [facility] Expl anation Healthcare Directive 09/09/2015 4:01 PM [facility], 07/31/2014 Care Teams Toy Mechanic Relationship Specialty Start Date End Date Latanya Green MD [address] [place] [address] PCP - General Family Practice 05/11/13 Magalie Ta MD [address] [place] [address] Surgery - Orthopedic 02/12/12 Donald Simon MD [address] [place] [address] Consulting Physician Sports Medicine - Family Medicine 12/25/23
--- OUTSIDE RECORDS SUMMARY | 2024-01-10 07:49 | XMS_ITS ---
Author Organization [facility] Address [address] [place] [address] Care Team Providers Care Transportation Inspector Name Role Phone Unavailable Unavailable Unavailable Surgery Details Not on file Complications Check Surgery Details section. Procedure Estimated Blood Loss Check Surgery Details section. Procedure Findings Check Surgery Details section. Procedure Specimens Taken Check Surgery Details section.
--- OUTSIDE RECORDS SUMMARY | 2024-01-10 07:49 | XMS_ITS | Referral Summary ---
Author Organization [facility] Address [address] [place] [address]. [place] [address] Care Team Providers Care Circular Saw Edge Fuser Name Role Phone Latanya Green Primary Care Provider [phone] Encounters Date Type Department Care Team Description 11/11/2023 2:17 PM CDT Anesthesia Event [facility] PeriOp Services [address] [place] [address] Bennie Silva MD Hendrickson, Taylor K, MD 11/11/2023 Travel 11/11/2023 1:30 PM CDT - 11/11/2023 2:10 PM CDT Surgery [facility] PeriOp Services [address] [place] [address] Christen Montemayor MD Endoscopic ultrasound, upper tract 11/11/2023 11:26 AM CDT - 11/11/2023 3:52 PM CDT Hospital Encounter [facility] PreOP/PostOP [address] [place] [address] Christen Montemayor MD Discharge Disposition: Home or Self Care 11/01/2023 Travel from Last 3 Months Allergies Active Allergy Reactions Criticality Noted Date Comments [facility] Unknown 05/07/2014 NOTED FROM ALLERGY TESTING Cats [...] Active fluticasone (FLONASE) 50 MCG/ACT nasal spray [place] 2 sprays into both nostrils daily as [...] in joint, ankle and foot 12/09/2006 07/29/2007 Social History Tobacco Use Types Packs/Day Years [...] 11/11/2023 11:48 AM CDT Plan of Treatment Not on file Medical Devices Implanted Type Area Social Work Associate Device Identifier Shelf Expiration Date Model / Serial / Lot Tornier Tibial Insert Left Size 3 Implanted:Qty: 1 on 05/10/2014 by Crys Ta MD at [facility] Left: Ankle [employer] 07/21/2015 [id number] / [id number] / Tornier Talar Part Short Peg Left Size 3 Implanted:Qty: 1 on 05/10/2014 by Crys Ta MD at [facility] Left: Ankle [employer] 04/20/2018 [id number] / [id number] / Imp Insert Tornier Tibial Ankle Base Size 3 [id number] Implanted:Qty: 1 on 05/10/2014 by Crys Ta MD at [facility] Left: Ankle [employer] 12/19/2018 [id number] / [id number] / Size 5-6 10mm Articular Insert Implanted:Qty: 1 on 09/14/2015 by Kennedy Flores MD at [facility] Right: Knee [employer] 02/15/2025 [id number] / / [id number] Bone Cement Palacos [id number] Implanted:Qty: 1 on 09/14/2015 by Kennedy Flores MD at [facility] Right: Knee [employer] 06/20/[id number] / / [id number] Imp Baseplate Tibial Kristyn Ii Sz 6 Rt Ti [id number] Implanted:Qty: 1 on 09/14/2015 by Kennedy Flores MD at [facility] Right: Knee [employer]-R 05/07/2025 [id number] / / [id number] Size 6n, Right Cruciate Retaining Femoral Component Implanted:Qty: 1 on 09/14/2015 by Kennedy Flores MD at [facility] Right: Knee [employer] 08/20/2022 [id number] / / [id number] Imp Comp Patella Snn Gen Ii Resurfacing 38mm [id number] Implanted:Qty: 1 on 09/14/2015 by Kennedy Flores MD at [facility] Right: Knee [employer]-R 04/22/2025 [id number] / / [id number] Explanted Type Area Social Work Associate Device Identifier Shelf Expiration Date Model / Serial / Lot Agility Total Ankle Components X3 (Sent For Research With César Villagran) Explanted:Qty: 3 on 05/10/2014 by Crys Ta MD at [facility] Left: Ankle 1 Screw (Discarded) Explanted:Qty: 1 on 05/10/2014 by Crys Ta MD at [facility] Left: Ankle Procedures Procedure Name Priority Date/Time Associated Diagnosis Comments ESOPHAGOGASTRODUODE NOSCOPY, WITH ENDOSCOPIC ULTRASOUND GUIDANCE 11/11/2023 2:19 PM CDT Acute diarrhea Pancreatic insufficiency UPPER EUS Routine 11/11/2023 2:03 PM CDT MA SCREENING BILATERAL W/ ADAMS Routine 10/08/2023 8:[address] CHEST W/O CONTRAST Routine 08/16/2017 9:23 AM DOBBY LOOM WEAVER BASIC METABOLIC PANEL Routine 09/15/2015 6:49 AM DOBBY LOOM WEAVER from Last 3 Months or Most Recently Relevant to Health Maintenance Results * UPPER EUS (11/11/2023 2:03 PM CDT) Upper EUS [facility] ___ Patient Name: Marlys Alvarez ??Procedure Date: 11/11/2023 2:03 PM ? Date of : 1950 ? Admit Type: Outpatient Age: 73 ? Gender: Female Attending MD: CHRISTEN MONTEMAYOR MD, ??Total Sedation Time: Instrument Name: 259 - Linear EUS ? ___ Procedure: ?Upper EUS Indications: ?Suspected chronic pancreatitis Providers: ?CHRISTEN MONTEMAYOR MD (Doctor) Referring MD: ? Medicines: [...] Exera II Ultrasound Gastrovideoscope, ?Linear, Model # [id number], Censitrac # [id number] ?was introduced through the mouth, and advanced [...] Procedure Code(s): ? --- Professional --- ? 46022, Esophagogastroduode noscopy, flexible, transoral; with endoscopic ? ultrasound examination limited to the esophagus, stomach or duodenum, ? and adjacent structures Diagnosis Code(s): ? --- Professional --- ? I70.0, Atherosclerosis of aorta CPT copyright 2021 [employer]. All rights reserved. The codes documented in this report are preliminary and upon smudger review may be revised to meet current compliance requirements. Attending Participation: ? I personally performed the entire procedure. Jarad Montemayor MD ___ CHRISTEN MONTEMAYOR MD 11/11/2023 2:39:36 PM I was physically present for the entire viewing portion of the exam. CHRISTEN MONTEMAYOR MD Number of Addenda: 0 Note Initiated On: 11/11/2023 2:03 PM MRN: ?[id number] Procedure Date: ? 11/11/2023 2:03:55 PM Total Procedure Duration: 0 hours 7 minutes 19 seconds Estimated Blood Loss: ? Estimated blood loss: none. Scope In: 2:26:14 PM Scope Out: 2:33:33 PM RADIOLOGY RESULTS 11/11/2023 2:03 PM CDT Christen Montemayor MD PROCEDURES RADIOLOGY RESULTS * (ABNORMAL) Basic metabolic panel (09/15/2015 6:49 AM DOBBY LOOM WEAVER) Sodium 139 133 - 144 mmol/L [facility] Potassium 4.5 3.4 - 5.3 mmol/L [facility] Chloride 105 94 - 109 mmol/L [facility] Carbon Dioxide 26 20 - 32 mmol/L [facility] Anion Gap 8 3 - 14 mmol/L [facility] Glucose 126(H) 70 - 99 mg/dL [facility] Urea Nitrogen 15 7 - 30 mg/dL [facility] Creatinine 0.74 0.52 - 1.04 mg/dL [facility] GFR Estimate 78 >60 mL/min/1. 7m2 [facility] Comment:Non GFR Calc GFR Estimate If Black >90 GFR Calc >60 mL/min/1. 7m2 [facility] Calcium 8.0(L) 8.5 - 10.1 mg/dL [facility] Blood specimen (specimen) 09/15/2015 6:49 AM DOBBY LOOM WEAVER 09/15/2015 6:54 AM DOBBY LOOM WEAVER Yamil Fair PA-C LAB - BLOOD ORDERABLES Performing Organization Address City/[facility]/ZIP Co de Phone Number [facility] [address] [address], [facility] [phone] from Last 3 Months or Most Recently Relevant to Health Maintenance Advance Directives For more information, please contact: [phone] Documents on File Type Date Recorded Patient Stunt Person Expl anation Advance Directives and Living Will 09/14/2015 7:21 PM Health Care Directiv e 07-31-14 * Full Code (Latest Code Status on File) Date Activated Date Inactivated Comments 09/17/2015 12:21 PM 11/11/2023 11:26 AM * Full Code Date Activated Date Inactivated Comments 09/14/2015 4:50 PM 09/17/2015 12:21 PM Care Teams Circular Saw Edge Fuser Relationship Specialty Start Date End Date Latanay Green PCP - General Family Practice 04/19/14
--- OUTSIDE RECORDS SUMMARY | 2024-01-10 07:49 | XMS_ITS | Encounter Summary ---
Author Organization [facility] Address [address] [place] [address]. [place] [address] Care Team Providers Care Panel Maker Name Role Phone Norma Latanya Primary Care Provider [phone] Encounter Details Date Type Department Care Team (Latest Contact Info) Description 11/01/2023 Travel Social History Tobacco Use Types Packs/Day Years Used Date Smoking Tobacco: Never Alcohol Use Standard Drinks/Week Comments Yes 0 (1 standard drink = 0.6 oz pur e alcohol) 2X/ MONTHLY Sex and Gender Information Value Date Recorded Sex Assigned at Not on file Gender Identity Not on file Sexual Orientation Not on file documented as of this encounter Plan of Treatment Not on file documented as of this encounter Visit Diagnoses Not on filedocumented in this encounter Care Teams Panel Maker Relationship Specialty Start Date End Date Norma Latanya PCP - General Family Practice 04/19/14 documented as of this encounter
--- OUTSIDE RECORDS SUMMARY | 2024-01-10 07:49 | XMS_ITS | Encounter Summary ---
Author Organization [facility] Address [address] [place] [address] Care Team Providers Care Hall Clerk Name Role Phone Unavailable Primary Care Provider Unavailabl e Encounter Details Date Type Department Care Team (Late st Contact Info) Description 05/02/2015 Historical Ophthalmology RST OPH Fidel De Souza M.D. [address] [place] [phone] Social History Tobacco Use Types Packs/Day Years Used Date Smoking Tobacco: Never Assessed Sex and Gender Information Value Date Recorded Sex Assigned at Not on file Gender Identity Not on file Sexual Orientation Not on file documented as of this encounter Progress Notes * Fidel De Souza M.D. - 05/02/2015 8:47 AM CDT Eye General CHIEF COMPLAINT Single eye double vision. Feels like someone sticking her in her eye with their finger. HISTORY OF PRESENT ILLNESS Getting over a cold. Heading to [facility] next month. Eye ointment left eye 7am. Eye drops put inmiddle of night. BGC: Monocular oblique diplopia; left eye; since cataract surgery on March 23; constantly; symptoms are severe. She is able to see clearly at near with no double vision in her left eye. Pain; left eye; x 4 weeks; constantly; symptoms reported at level of up to 7/10. She reports having some double vision in both eyes prior to her surgery. FIELD MARKETING TEAM LEADER: Poor visual quality since cataract surgery in left eye a month ago. Did not notice before surgery. Now sees objects with tail/shadow to left. Cannot drive at night. Constant but moderately severe. IMPRESSION / REPORT / PLAN topography and pentacam acquired today, both eyes.......shows irregular astigmatism left eye; righteye looks wnl. iTRACE....confirms corneal irregularity OS resulting in the PSF similar to that described by the patient. #1 Blurred vision, left eye Secondary to [...] the procedure with the patient (or legal franchise sales representative and otherspresent during the discussion). The patient understands. All questions answered and consent given. #4 Pseudophakia, left eye Looks good and stable. #5 Cataract, right eye Observe for now. DIAGNOSIS #1 Blurred vision, left eye #2 Irregular astigmatism, left eye #3 Corneal opacity, left eye #4 Pseudophakia, left eye #5 Cataract, right eye CDM Reports - EYEGEN Id: [id number] Status: Fnl documented in this encounter Plan of Treatment Not on file documented as of this encounter Visit Diagnoses Not on filedocumented in this encounter
--- OUTSIDE RECORDS SUMMARY | 2024-01-10 07:49 | XMS_ITS | Encounter Summary ---
Author Organization [facility] Address [address] [place] [address] Care Team Providers Care Sandwich Maker Name Role Phone Unavailable Primary Care Provider Unavailabl e Encounter Details Date Type Department Care Team (Late st Contact Info) Description 07/11/2015 Historical Ophthalmology RST OPH Fidel De Souza M.D. [address] [place] [phone] Social History Tobacco Use Types Packs/Day Years Used Date Smoking Tobacco: Never Assessed Sex and Gender Information Value Date Recorded Sex Assigned at Not on file Gender Identity Not on file Sexual Orientation Not on file documented as of this encounter Progress Notes * Fidel De Souza M.D. - 07/11/2015 8:42 AM CST Eye General CHIEF COMPLAINT follow up after debridement HISTORY OF PRESENT ILLNESS Seeing better than she could before. Notes that even the night driving has improved less glare. HAVING IOL SURGERY RIGHT EYE----BACK HOME IN THE NEAR FUTURE. IMPRESSION / REPORT / PLAN #1 s/p corneal epi debridement, left eye Doing welll with subjective improvement in vision and improved refraction. #2 Anterior basement membrane dystrophy Now has more classic features OS after the epi debridement. Discussed the nature with patient including possibility of future symptoms. #3 Pseudophakia, left eye Stable #4 Cataract, right eye Will be having surgery with Dr. Curran next month. DIAGNOSIS #1 s/p corneal epi debridement, left eye #2 Anterior basement membrane dystrophy #3 Pseudophakia, left eye #4 Cataract, right eye CD Reports - EYEGEN Id: [id number] Status: Fnl documented in this encounter Plan of Treatment Not on file documented as of this encounter Visit Diagnoses Not on filedocumented in this encounter
--- OUTSIDE RECORDS SUMMARY | 2024-01-10 07:49 | XMS_ITS | Encounter Summary ---
Author Organization [facility] Address [address] [place] [address] Care Team Providers Care Library Serials Assistant Name Role Phone Unavailable Primary Care Provider Unavailabl e Encounter Details Date Type Department Care Team (Late st Contact Info) Description 05/12/2015 Historical Ophthalmology RST OPH Theresa Arteaga [address] [place] [address] Social History Tobacco Use Types Packs/Day Years Used Date Smoking Tobacco: Never Assessed Sex and Gender Information Value Date Recorded Sex Assigned at Not on file Gender Identity Not on file Sexual Orientation Not on file documented as of this encounter Progress Notes * Theresa Arteaga - 05/12/2015 2:20 PM CDT Eye Subsequent Visit HISTORY OF PRESENT ILLNESS Left eye debridement by DR. De Souza. CDM Reports - EYESV Id: [id number] Status: Fnl documented in this encounter Plan of Treatment Not on file documented as of this encounter Visit Diagnoses Not on filedocumented in this encounter
--- OUTSIDE RECORDS SUMMARY | 2024-01-10 07:49 | XMS_ITS | Clinical Summary ---
Author Organization [facility] Address [address] [place] [address] Care Team Providers Care Call Center Operations Manager Name Role Phone Unavailable Primary Care Provider Unavailabl e Source Comments Patient records contain information from all sites at [facility]. For routine questions regarding patient records, call [phone] during business hours, M-F 8:00 AM - 5:00 PM Central Time. Record requests for emergency care only can be directed to [phone] at any time.[facility] Allergies Active Allergy Reactions Criticality Noted Date Comments Moore Other (see comments) 05/29/2022 Allergenic Extracts Wheezing (Reselect Reaction) Low 03/15/2021 Cat Dander Shortness of breath (Reselect Reaction),Wheezing (Reselect Reaction) 06/29/2013 Clove Oil Other (see comments) High 03/15/2021 Clove Oil-Witch Prudence Chula Other (see comments) 10/19/2019 Pain and swelling with dry socket packing Dicloxacillin GI intolerance,Other (see comments) 05/02/2015 severe heartburn severe heartburn House Dust Other (see comments) 05/29/2022 Hydrocodone Itching 08/04/2019 Latex Other (see comments) 05/29/2022 Mold Extracts Other (see comments) 05/29/2022 Morphine Itching,Nausea And Vomiting,Other (see comments) 05/02/2015 crazy dreams Pollen Extracts Other (see comments) 05/29/2022 SILK also lataex sensatiavity Ragweed Itching 03/31/2015 Medications Medication Sig Dispensed Refills Start Date End Date Status albuterol 90 mcg/actuation inhaler Inhale 2 puffs as needed for wheezing or shortness of breath. 03/28/2021 Active amLODIPine (NORVASC) 5 mg tablet Take 5 mg by mouth every morning. 05/07/2022 Active amoxicillin (AMOXIL) 500 mg capsule Take 2,000 mg by mouth as directed. Take FOUR capsules (2000 mg) 1 hour prior to dental procedures 12/22/2021 Active cetirizine (ZyrTEC) 10 mg tablet Take 1 tablet by mouth daily. 05/02/2015 Active cholecalciferol (VITAMIN D3) 50 mcg (2,000 Unit) tablet Take 2,000 Units by mouth daily. 05/02/2015 Active diphenhydrAMINE (BENADRYL) 25 mg capsule Take 25 mg by mouth at bedtime as needed for sleep. 05/02/2015 Active famotidine (PEPCID) 20 mg tablet Take 1 tablet by mouth 2 (two) times a day. 03/14/2022 Active fluticasone propionate (FLONASE) 50 mcg/actuation nasal spray Administer 2 sprays into each nostril as needed for allergies or rhinitis. 07/21/2018 Active gabapentin (NEURONTIN) 300 mg capsule 900 mg 2 (two) times a day. 05/02/2015 Active ibuprofen (ADVIL,MOTRIN) 200 mg tablet Take 400 mg by mouth daily as needed for pain. 05/02/2015 Active olopatadine (PATADAY) 0.2 % ophthalmic solution Administer 2 drops into both eyes at bedtime. 05/16/2015 Active omeprazole (PriLOSEC) [address] capsule Take 20 mg by mouth as directed. Take one capsule daily when not taking Famotidine (when Famotidine isn't helping). 04/04/2022 Active polyvinyl alcohol-povidone, PF, (Refresh Classic, PF,) 1.4-0.6 % ophthalmic solution Administer 1-2 drops into both eyes at bedtime. 05/16/2015 Active rosuvastatin (CRESTOR) 5 mg tablet Take 5 mg by mouth at bedtime. 08/17/2021 Active calcium carb-vit T0-Fc-noxaaah capsule Take 2 tablets by mouth daily. 05/02/2015 Active ondansetron ODT (ZOFRAN-ODT) 4 mg disintegrating tablet Dissolve 4 mg in the mouth every 6 (six) hours as needed for nausea. 06/01/2022 Active UNABLE TO FIND Take 1 each by mouth at bedtime as needed (sleep). Delta-9 THC Gummies 5 mg 06/27/2022 Active DULoxetine (CYMBALTA) [address] capsule Take 60 mg by mouth at bedtime. Active melatonin 5 mg tablet Take 5 mg by mouth at bedtime as needed (sleep). Active acetaminophen (TYLENOL) 500 mg tablet Take 1,000 mg by mouth every 6 (six) hours as needed for pain. Active albuterol 2.5 mg /3 mL nebulizer solution Inhale 2.5 mg by nebulization as needed for wheezing or shortness of breath. Active ascorbic acid, vitamin C, (ascorbic acid) 500 mg tablet Take 1,000 mg by mouth as directed. Take two tablets (1000 mg) once daily, starting at onset of cold symptoms. Active sennosides-docusate sodium (SENOKOT-S) 8.6-50 mg per tablet Take 2 tablets by mouth 2 (two) times a day. Continue while taking Oxycodone 07/18/2022 Active oxyCODONE (ROXICODONE) 5 mg immediate release tabletIndications:Ac joaquín Pain Exception Take 1 tablet (5 mg total) by mouth every 6 (six) hours as needed for pain Indication: Acute Pain Exception. 15 tablet 07/24/2022 Active cyclobenzaprine (FLEXERIL) 5 mg tablet Take 1 tablet (5 mg total) by mouth 4 (four) times a day as needed for muscle spasms. 30 tablet 07/26/2022 Active Active Problems Problem Noted Date Diagnosed Date Spinal Stenosis Lumbosacral Region 07/18/2022 Hyperlipidemia 07/03/2022 Hypertension Essential Primary 07/03/2022 Stenosis Spinal Lumbar With Neurogenic Claudicat ion 05/29/2022 Overview: Added automatically from request for surgery [id number] Apnea Sleep Obstructive 05/17/2021 Adjustment Disorder With Depressed Mood 07/10/20 16 Gastroesophageal Reflux Disease 07/14/2015 Overview: EGD 07/2019 reflux on biopsy Replacement Ankle Status Post Left 06/29/2014 Social History Tobacco Use Types Packs/Day Years Used Date Smoking Tobacco: Never Smokeless Tobacco: Never Tobacco Cessation:Counseling Given: Not Answered Nutrition Answer Date Recorded Nutrition: EVOO Fat Source Unknown 08/17 Nutrition: Servings of Fruits/Vegetables per Day Not on file 08/17/2021 Dental Answer Date Recorded Dental: Regular Dentist Unknown 08/17/19 Sex and Gender Information Value Date Recorded Sex Assigned at Not on file Gender Identity Not on file Sexual Orientation Not on file Last Filed Vital Signs Vital Sign Reading Time Taken Comments Blood Pressure 144/75 07/18/2022 4:40 PM DUMBWAITER OPERATOR Pulse 55 07/18/2022 4:40 PM DUMBWAITER OPERATOR Temperature 36.4 ??C (97.5 ??F) 07/18/2022 4:40 PM CS T Respiratory Rate 16 07/18/2022 4:40 PM DUMBWAITER OPERATOR Oxygen Saturation 93% 07/18/2022 4:40 PM DUMBWAITER OPERATOR Inhaled Oxygen Concentration - - Weight 101 kg (222 lb 7.1 oz) 07/17/2022 8:54 AM DUMBWAITER OPERATOR Height 181.6 cm (5' 11.5) 07/17/2022 8:54 AM CS T Body Mass Index 30.59 07/17/2022 8:54 AM DUMBWAITER OPERATOR Plan of Treatment Health Maintenance Due Date Last Done Comments Bone Density Scan (Osteoporo sis Screen) 1950 CT Colonography 1950 Cologuard 1950 Colonoscopy 1950 Colorectal Cancer Screening 1950 FIT 1950 Hepatitis C Screening 1950 Mammogram 1950 Office Visit for Blood Press ure Check / Re-check 07/03/2023 07/03/2022 Depression Screening (Annual PHQ-2) 07/22/2023 Fall Risk Screen (Annual) 07/22/2023 COVID-19 Vaccine (2022-08 4 season) 2023 05/15/2023, 11/30/2022, 05/08/2022, Additional history exists Fasting Glucose for Diabetes Screening 10/04/2025 10/04/2022, 07/17/2022, 07/03/2022, Additional history exists Lipid (Cholesterol) Screening 10/05/2027, 08/17/2021, 08/22/2020, Additional history exists DTaP,Tdap,and Td Vaccines (3 - Td or Tdap) 07/02/2028 07/02/2018, 05/14/2008 Pneumococcal vaccine (65+ years) Completed 07/10/20, 05/05/2015 Zoster Vaccines Completed 12/15/2019, 06/22, 04/22/2015 Influenza Vaccine Completed 05/15/2023, , 06/01/2021, Additional history exists Medical Devices Implanted Type Area Plunger Scoop Operator Device Identifier Shelf Expiration Date Model / Serial / Lot Ankle Implant Ankle Implant Left: Ankle Knee Implant Knee Implant Bilateral : Knee Procedures Procedure Name Priority Date/Time Associated Diagnosis Comments EXTI BASIC METABOLIC PANEL, S/P Routine 10/04/2022 11:23 AM CDT EXTI LIPID PANEL, S Routine 10/04/2022 1 1:23 AM CDT from Last 3 Months or Most Recently Relevant to Health Maintenance Advance Directives For more information, please contact: [phone] * Full Code (Latest Code Status on File) Date Activated Date Inactivated Comments 07/17/2022 9:09 AM 07/18/2022 7:38 PM Question Answer Comments Full Code: Not Discussed Due to: Patient not available
--- OUTSIDE RECORDS SUMMARY | 2024-01-10 07:49 | XMS_ITS | Referral Summary ---
Author Organization [facility] Address [address] [place] [id number] Care Team Providers Care Reconditioning Associate Name Role Phone Unavailable Primary Care Provider Unavailabl e Source Comments Patient records contain information from all sites at [facility]. For routine questions regarding patient records, call [phone] during business hours, M-F 8:00 AM - 5:00 PM Central Time. Record requests for emergency care only can be directed to [phone] at any time.[facility] Allergies Active Allergy Reactions Criticality Noted Date Comments [place] Other (see comments) 05/29/2022 Allergenic Extracts Wheezing (Reselect Reaction) Low 03/15/2021 Cat Dander Shortness of breath (Reselect Reaction),Wheezing (Reselect Reaction) 06/29/2013 Clove Oil Other (see comments) High 03/15/2021 Clove Oil-Witch [place] Other (see comments) 10/19/2019 Pain and swelling [...] mouth at bedtime. 08/17/2021 Active calcium carb-vit A6-Fe-zdlobiw capsule Take 2 tablets by mouth daily. [...] Overview: Added automatically from request for surgery [id number] Apnea Sleep Obstructive 05/17/2021 Adjustment Disorder With [...] Comments Blood Pressure 144/75 07/18/2022 4:40 PM STEEL ERECTING PUSHER Pulse 55 07/18/2022 4:40 PM STEEL ERECTING PUSHER Temperature 36.4 ??C (97.5 ??F) 07/18/2022 4:40 PM CS T Respiratory Rate 16 07/18/2022 4:40 PM STEEL ERECTING PUSHER Oxygen Saturation 93% 07/18/2022 4:40 PM STEEL ERECTING PUSHER Inhaled Oxygen Concentration - - Weight 101 kg (222 lb 7.1 oz) 07/17/2022 8:54 AM STEEL ERECTING PUSHER Height 181.6 cm (5' 11.5) 07/17/2022 8:54 AM CS T Body Mass Index 30.59 07/17/2022 8:54 AM STEEL ERECTING PUSHER Plan of Treatment Not on file Medical Devices Implanted Type Area Alum Plant Operator Device Identifier Shelf Expiration Date Model [...] Advance Directives For more information, please contact: [phone] * Full Code (Latest Code Status on File) Date Activated Date Inactivated Comments 07/17/2022 9:09 AM 07/18/2022 7:38 PM Question Answer Comments Full Code: Not Discussed Due to: Patient not available
--- OUTSIDE RECORDS SUMMARY | 2024-01-10 07:49 | XMS_ITS | Encounter Summary ---
Author Organization [facility] Address [address] [place] [address]. [place] [address] Care Team Providers Care Respiratory Care Technician Name Role Phone Latanya Green Primary Care Provider [phone] Reason for Visit * Auth/Cert (Routine) Specialty Diagnoses / Procedures Referred By Carlos t Referred To Contact Surgery Diagnoses Acute diarrhea Pancreatic insufficiency Acute diarrhea [R19.7] Pancreatic insufficiency [K86.89] Procedures VA ENDOSCOPIC US EXAM, ESOPH VA UPPR GI ENDOSCOPY W/US FN BX VA EGD INTRMURAL NEEDLE ASPIR/BIOP ALTERED ANATOMY VA EDG US EXAM SURGICAL ALTER STOM DUODENUM/JEJUNUM Endoscopic ultrasound, Upper tract [facility] [address] [place] [address] Referral ID Status Reason Start Date Expiration Date Visits Re quested Visits Authorized [id number] 1 1 Encounter Details Date Type Department Care Team (Late st Contact Info) Description 11/11/2023 11:26 AM CDT - 11/11/2023 3:52 PM CDT Hospital Encounter [facility] PreOP/PostOP [address] [place] [id number] Christen Montemayor MD [facility] [address] [id number] Discharge Disposition: Home or Self Care Social History Tobacco Use Types Packs/Day Years [...] encounter Discharge Instructions * Discharge Instructions* Manjula Barrios RN - 11/11/2023 2:[address] CHRISTEN MONTEMAYOR M.D. CLINIC PHONE NUMBER: [phone] [facility] * Attachments The following attachments cannot be sent through Care Everywhere. * (s) After Anesthesia (Sleep Medicine) (Danish) documented in this encounter Medications at Time [...] daily fluticasone (FLONASE) 50 MCG/ACT nasal spray [place] 2 sprays into both nostrils daily as [...] EUS (11/11/2023 2:03 PM CDT) Upper EUS [facility] ___ Patient Name: Marlys Alvarez ??Procedure Date: [...] Exera II Ultrasound Gastrovideoscope, ?Linear, Model # [id number], Censitrac # [id number] ?was introduced through the mouth, and advanced [...] Procedure Code(s): ? --- Professional --- ? 47572, Esophagogastroduode noscopy, flexible, transoral; with endoscopic ? ultrasound examination limited to the esophagus, stomach or duodenum, ? and adjacent structures Diagnosis Code(s): ? --- Professional --- ? I70.0, Atherosclerosis of aorta CPT copyright 2021 [employer]. All rights reserved. The codes documented in this report are preliminary and upon risk management intern review may be revised to meet current compliance requirements. Attending Participation: ? I personally performed the entire procedure. Jarad Montemayor MD ___ CHRISTEN MONTEMAYOR MD 11/11/2023 2:39:36 PM I was physically present for the entire viewing portion of the exam. CHRISTEN MONTEMAYOR MD Number of Addenda: 0 Note Initiated On: 11/11/2023 2:03 PM MRN: ?[id number] Procedure Date: ? 11/11/2023 2:03:55 PM Total Procedure Duration: 0 hours 7 minutes 19 seconds Estimated Blood Loss: ? Estimated blood loss: none. Scope In: 2:26:14 PM Scope Out: 2:33:33 PM RADIOLOGY RESULTS 11/11/2023 2:03 PM CDT Christen Montemayor MD PROCEDURES RADIOLOGY RESULTS documented in this encounter Visit Diagnoses Not on filedocumented [...] RN)[id number] (Paused - Provider: Kennedy Yang APRN ELECTRIC SERVICEMAN - Comment: Switch to gravity)1351 (Restarted - Provider: Kennedy Yang APRN ELECTRIC SERVICEMAN)1432 (Anesthesia Volume Adjustment - Provider: Kennedy Yang APRN ELECTRIC SERVICEMAN) PRN Medication Order 11/09/2023 11/10/2023 11/11/2023 flumazenil [...] 6 HOURS PRN, nausea, vomiting, Starting on 11/11/23 at 1446, This is Step 1 of [...] vomiting, Administer over 2-5 Minutes, Starting on 11/11/23 at 1446, This is Step 1 of nausea and vomiting management. If nausea not resolved in 15 minutes, go to Step 2 prochlorperazine (COMPAZINE). Irritant. documented in this encounter Care Teams Respiratory Care Technician Relationship Specialty Start Date End Date TomaszalexbertramJanie PCP - General Family Practice 04/19/14 documented as of this encounter
--- OUTSIDE RECORDS SUMMARY | 2024-01-10 07:50 | XMS_ITS | Continuity of Care Document ---
Author Organization [facility] Address [address] [address] [place] [address] Phone Care Team Providers Care Plant Manager Name Role Phone Jack ESCALONA, [place] Unavailable Unavailable Allergies, Adverse Reactions, Alerts Substance Reaction Status Criticality CLOVE OIL Active No Information latex Rash Active No Information dicloxacillin Severe heartburn Active No Informa tion morphine Nausea/Vomiting Active No Informati on WARNIN allergy(ies) could not be collected because the type is not supported. Please contact the source practice for further details. Medications Medication Instructions Dosage Effective Dates (start - stop) Status Comments dicyclomine 10 mg capsule take 1 capsule by oral route up to 3 times every day - Active amlodipine 2.5 mg tablet take 1 tablet by oral route every day 2.5 MG - Active albuterol sulfate concentrate 5 mg/mL(0.5 %) solution for nebulization inhale 0.5 milliliter by inhalation route 3- 4 times every day via nebulizer 2.5 MG - Active calcium carbonate 500 mg calcium (1,250 mg) tablet take 1 tablet by oral route 2 times every day 1 tablet - Active Multivitamin unknown Oral - Active tramadol 50 mg tablet take 1 tablet by oral route every 6 hours as needed as needed 50 MG - Active melatonin 5 mg capsule take 2 tablets by oral route every bedtime 2 tablets - Active Zantac-360 (famotidine) 20 mg tablet take 1 tablet by oral route 2 times every day 20 MG - Active Gralise 900 mg tablet,extended release take 1 tablet by oral route 2 times every day 900 MG - Active duloxetine 60 mg capsule,delayed release take 1 capsule by oral route every day 60 MG - Active rosuvastatin 5 mg tablet take 1 tablet by oral route every week 5 MG - Active Vitamin D3 50 mcg (2,000 unit) tablet take 1 tablet by oral route every day 1 tablet - Active PROBIOTIC (unknown strength) take 2 tablet by oral route every day Not Available - Active Herbal medications/supplem ents (unknown strength) THC gummys dose 5 mg taken through oral route 1 time a day as needed Not Available - Active Advil 200 mg tablet take 2 tablet by oral route every day as needed - Active Benadryl 25 mg capsule take 1-2 capsule by oral route as needed - Active acetaminophen 500 mg tablet take 2 tablet by oral route 1 - 2 times every day as needed 1000 MG - Active Zyrtec 10 mg tablet take 1 tablet by oral route every day 10 MG - Active TRAZODONE HCL (unknown strength) take 1 tablet by oral route every day at bedtime Not Available - Active dicyclomine 10 mg capsule take 1 capsule by oral route up to 3 times every day - No Longer Active Procedures Procedure Date Offic/outpt E&m Estab [facility] [place] 2 24 Ugi Endo; W/endo Ultrasound Ex 24 Offic/outpt E&m Estab [facility] [place] 2 24 Offic/outpt E&m Estab [facility] [place] 2 24 Routine Serum Collection Colonoscopy Flex; W/remov Les- 24 Colonoscopy Flex; W/bx 1/mx Level Iv-surg Path Gross/micro 24 Offic/outpt E&m [facility] Advance Directives Directive Yes / No Effective Date File Name No Information Encounters Encounter Description Practice Location Reason(s) For Visit Diagnoses Date Provider Providers Copied on Encounter [facility], [address] [address], [place], [id number], [place] tel:[phone] [facility] No Information 4 Jack Toscano. [address], [place], [id number], [place]. tel:[phone] Offic/outpt E&m Estab Mod-hi 2 [facility], [address] [address], [place], [id number], [place] tel:[phone] [facility] GI Symptoms or Concerns (chief complaint) Irritable bowel syndrome with diarrhea 4 Jack Toscano. [address], [facility], [place], [id number], [place]. tel:[phone] Latanya Green MD. tel:[phone] Provider: Referral Self, USE FOR SELF REFERRALS. [facility], [address] [address], [place], [id number], [place] tel:[phone] [facility] No Information 4 Juanpablo Fernandez. [address], [facility], [place], [id number], [place]. tel:[phone] Referring Provider: Latanya Green MD K, [address] [place] [address], [place], [address]. tel:[phone] Offic/outpt E&m [facility] Mod-hi 2 [facility], [address] [address], [place], [id number], [place] tel:[phone] [facility] GI Symptoms or Concerns (chief complaint) Pancreatic insufficiencyDiar farhad, unspecified 4 Balaji Duncan. [address], [address], [place], [id number], [place]. tel:[phone] Latanya Green MD. tel:[phone] Provider: Referral Self, USE FOR SELF REFERRALS. [facility], [address] [address], [place], [id number], [place] tel:[phone] [facility] Pancreatic insufficiency 4 Shreya Carvalho. [address], [address], [place], [id number], [place]. tel:[phone] Offic/outpt E&m Estab Mod-hi 2 [facility], [address] [address], [place], [id number], [place] tel:[phone] [facility] GI Symptoms or Concerns (chief complaint) Diarrhea, unspecifiedDietar y counseling and surveillance 4 Shreya Carvalho. [address], [facility], [place], [id number], [place]. tel:[phone] Referring Provider: Referral Self, USE FOR SELF REFERRALS. [facility], [address] [address], [place], [id number], [place] tel:[phone] [facility] GI Symptoms or Concerns (chief complaint) Colorectal polypsDiverticulo sis of colon without diverticulitisBen ign neoplasm of cecumBenign neoplasm of ascending colonBenign neoplasm of descending colonDiarrhea, unspecified 4 [facility]. [address], [facility], [place], [id number], [place]. tel:[phone] Consulting Provider: Bernabe Karimi MD, [address] [facility] [address], [place], [address]. tel:[phone] Provider: Referral Self, USE FOR SELF REFERRALS. [facility], [address] [address], [place], [id number], [place] tel:[phone] [facility] Diarrhea, unspecified type 3 Trev Kidd. [address], [address], [place], [id number], [place]. tel:[phone] Offic/outpt E&m New Mod-hi [facility], [address] [address], [place], [id number], [place] tel:[phone] [facility] GI Symptoms or Concerns (chief complaint) Acute diarrheaIleitisNS AID long-term use 3 Trev Kidd. [address], [address], [place], [id number], [place]. tel:[phone] Referring Provider: Latanya Salcido, [address] [place] [address], [place], [address]. tel:[phone] [facility], [address] [address], [place], [id number], [place] tel:[phone] [facility] No Information Codey Elizabeth. [address], [address], [place], [id number], [place]. tel:[phone] Family History Family Member Type Diagnosis Age At Onset Brother Problem (finding) Cancer, skin Brother Problem (finding) Melanoma Father Problem (finding) Cancer, skin Father Problem (finding) Cancer, basal cell Brother Problem (finding) Cancer, prostate Brother Problem (finding) Hepatitis B Father Problem (finding) Cancer, prostate Mother Problem (finding) Cancer, basal cell Daughter Problem (finding) Asthma Mother Problem (finding) Cancer, skin Immunizations Vaccine Date Status Comments SARS-COV-2 (COVID-19) vaccin e, mRNA, spike protein, LNP, preservative free, 50 mcg/0.5 mL dose administered Note: [facility] bi-direct ional interface ; Source: Other Registry influenza, seasonal vaccine, quadrivalent, adjuvanted, 0.5mL dose, preservative free administered Note: [facility] bi-di rectional interface ; Source: Other Registry SARS-COV-2 (COVID-19) vaccin e, mRNA, spike protein, LNP, bivalent, preservative free, 30 mcg/0.3 mL dose, lakeisha-sucrose formulation administered Note: [facility] bi-direct ional interface ; Source: Other Registry SARS-COV-2 (COVID-19) vaccin e, mRNA, spike protein, LNP, bivalent, preservative free, 50 mcg/0.5 mL or 25 mcg/0.25 mL dose administered Note: [facility] bi- directional interface ; Source: Other Registry influenza, high-dose seasona l, quadrivalent, 0.7mL dose, preservative free administered Note: [facility] bi-direct ional interface ; Source: Other Registry SARS-COV-2 (COVID-19) vaccin e, mRNA, spike protein, LNP, preservative free, 100 mcg/0.5mL dose or 50 mcg/0.25mL dose administered Note: [facility] bi -directional interface ; Source: Other Registry SARS-COV-2 (COVID-19) vaccin e, mRNA, spike protein, LNP, preservative free, 100 mcg/0.5mL dose or 50 mcg/0.25mL dose administered Note: [facility] bi -directional interface ; Source: Other Registry influenza, high-dose seasona l, quadrivalent, 0.7mL dose, preservative free administered Note: [facility] bi-direct ional interface ; Source: Other Registry SARS-COV-2 (COVID-19) vaccin e, mRNA, spike protein, LNP, preservative free, 100 mcg/0.5mL dose or 50 mcg/0.25mL dose administered Note: [facility] bi -directional interface ; Source: Other Registry SARS-COV-2 (COVID-19) vaccin e, mRNA, spike protein, LNP, preservative free, 100 mcg/0.5mL dose or 50 mcg/0.25mL dose administered Note: [facility] bi -directional interface ; Source: Other Registry influenza, high dose seasona l, preservative-free administered Note: [facility] bi-direct ional interface ; Source: Other Registry zoster vaccine recombinant administered N ote: [facility] bi-directional interface ; Source: Other Registry influenza, high dose seasona l, preservative-free administered Note: [facility] bi-direct ional interface ; Source: Other Registry tetanus toxoid, reduced diphtheria toxoid, and acellular pertussis vaccine, adsorbed administered Note: [facility] b i-directional interface ; Source: Other Registry influenza, high dose seasona l, preservative-free administered Note: [facility] bi-direct ional interface ; Source: Other Registry Influenza administered Note: [facility] bi-d irectional interface ; Source: Other Registry influenza, high dose seasona l, preservative-free administered Note: [facility] bi-direct ional interface ; Source: Other Registry Pneumovax 23 administered Note: [facility] bi-d irectional interface ; Source: Other Registry Prevnar 13 administered Note: [facility] bi-d irectional interface ; Source: Other Registry Afluria Qd administered Note: [facility] bi-directional interface ; Source: Other Registry zoster vaccine, live administered Note: [facility] bi-directional interface ; Source: Other Registry Afluria Qd administered Note: [facility] bi-directional interface ; Source: Other Registry Influenza, seasonal, injectable administe red Note: [facility] bi- directional interface ; Source: Other Registry Influenza, seasonal, injectable administe red Note: [facility] bi- directional interface ; Source: Other Registry tetanus toxoid, reduced diphtheria toxoid, and acellular pertussis vaccine, adsorbed administered Note: [facility] b i-directional interface ; Source: Other Registry Influenza, seasonal, injectable administe red Note: [facility] bi- directional interface ; Source: Other Registry Energix Pediatric administered Note: [facility] bi-directional interface ; Source: Other Registry Energix Pediatric administered Note: [facility] bi-directional interface ; Source: Other Registry Energix Pediatric administered Note: [facility] bi-directional interface ; Source: Other Registry Havrix administered Note: [facility] bi-d irectional interface ; Source: Other Registry meningococcal polysaccharide (groups A, C, Y and W-135) diphtheria toxoid conjugate vaccine (MCV4P) administered Note: [facility] bi-direct ional interface ; Source: Other Registry meningococcal polysaccharide vaccine (MPSV4) administered Note: [facility] bi-direct ional interface ; Source: Other Registry Havrix administered Note: [facility] bi-d irectional interface ; Source: Other Registry poliovirus vaccine, inactivated administe red Note: [facility] bi- directional interface ; Source: Other Registry immune globulin, intramuscular administer ed Note: [facility] bi- directional interface ; Source: Other Registry Payers Payer name Insurance type Covered green party ID Authoriza tilyla(s) [employer] Medicare Advantage [id number] Social History Type Description Quantity Date Captured Comments Sex Female Smoking Status No Information Chief Complaint And Reason For Visit No Information Reason For Referral Reason For Referral No Information Plan Of Treatment Date Type Action Status Goal Lifestyle education regardin g diet completed Referral Ordered: EUS Appointment date/timeframe: 11/11/2023 ordered Referral Ordered: MRI Pancreas WITH Contrast Appointment date/timeframe: 09/16/2023 ordered Referral Ordered: MRI Enterography With Contrast Per Radiology Appointment date/timeframe: 07/09/2023 ordered History Of Present Illness Encounter Date Complaint History Of Prese nt Illness GI Symptoms or Concerns A very p leasant 73-year-old female who presents today for followup. She has previously seen my colleague, Perla Carpio, most recently on 09/20/2023. The patient has had extensive testing for diarrhea as part of which she had an MRCP done that revealed evidence of mild irregularity in the pancreatic duct for which she then had an endoscopic ultrasound done on November 10 that revealed no abnormality in the pancreas. The pancreatic duct measured 3 mm in size. The patient returns for followup today and reports that she still has excessive flatulence. Her bowel habit is still all over the place, and varies from diarrhea to almost developing constipation. She has not been tried on pancreatic enzymes in the past, although there was a plan to consider them if the Imodium does not work. She typically ends up taking Imodium after she has had an episode of diarrhea. GI Symptoms or Concerns Marlys i s a pleasant 73-year-old female who presents to clinic for follow up of diarrhea and to discuss recent finding from MRI of the pancreas. In review, patient was initially seen in May for evaluation of a 4 week history of diarrhea that was acute in onset. Initial CT showed a long segment of circumferential wall thickening within the mid ileum consistent with ileitis, but stool panel for Campylobacter, Salmonella, Shigella, norovirus, rotavirus, ova and parasite, Giardia and Cryptosporidium were negative. Her symptoms improved somewhat and it was recommended to complete a repeat imaging in 4 weeks. She underwent an MRI enterography on July 11, 2023 that was normal with complete resolution of previously seen ileal thickening. However, patient continued to have ongoing diarrhea. Because of this, a colonoscopy was completed 07/29/2023. This showed normal terminal ileum and colon. Random colon biopsies were normal. There were a few tubular adenomas and a sessile serrated adenoma which were removed. At her last visit on 08/14/2023 she reported ongoing diarrhea. Celiac serologies completed at that time were negative. TSH was low at 0.434 and T3 was also low at 1.7. Pancreatic elastase was decreased at 189. Because of the decreased pancreatic elastase, an MRI of the pancreas was completed. The MRI showed normal signal intensity of the pancreas. No discrete pancreatic lesion. Mild irregularity involving the main pancreatic duct near the neck/pancreatic body without upstream dilation. There was no evidence of discreet underlying lesion seen on imaging. Today she states diarrhea has not improved. She is going 4-5 times daily. She has increased urgency and will sometimes have accidents. She has tried removing lactose from her diet and has not noticed an improvement. She does take Imodium but will take 1-2 tablets a day as she is worried she'll get constipated. GI Symptoms or Concerns Marlys pérez s a 73-year-old female seen in clinic today for followup of diarrhea. She has been seen in the clinic in the past by Dr. Karimi on June 03, 2023. Please refer to the note for additional details.Marlys was previously seen in May for on a 4-week history of diarrhea that was acute in onset. Initial CT had shown a long segment of circumferential wall thickening within the mid ileum consistent with ileitis, but stool panel for Campylobacter, Salmonella, Shigella, norovirus, rotavirus, ova and parasite, Giardia and Cryptosporidium were negative. Her symptoms had already started to settle down to some extent and bowel movements had become somewhat formed by the time she was seen in clinic by Dr. Karimi and therefore, the recommendation was to wait for 4 weeks and then repeat imaging. The repeat MR enterography was obtained on July 11, 2023, and was normal with complete resolution of the previously seen ileal thickening. However, patient continued to ongoin GI Symptoms or Concerns GI Symptoms or Concerns The liudmila ent is a 72-year-old female who presents for consultation at the request of Dr. Latanya Green for evaluation of diarrhea. The patient has a past medical history significant for degenerative disc disease and low back pain. The patient reports approximately 4 weeks ago, she developed acute onset of diffuse abdominal pain and diarrhea. She reports passing multiple loose stools a day. The abdominal pain was diffuse. This was associated with a decrease in appetite. She denies any hematochezia, no mucus in the stool, and no nausea or vomiting. The patient denies any sick contacts or recent travel. No new medications. She does report taking ibuprofen approximately every other day due to the low back pain. She also uses oxycodone, tramadol and acetaminophen. The patient was seen by her primary care provider on May 14, 2023, at which time laboratories were performed and reviewed, which revealed an unremarkable CBC, stool panel which was negative for infection with Campyl Functional Status Date Functional Assessmen t No Information Instructions Date Instruction Additional Infor dana I discussed with the patient that she has previously had extensive testing done including colonoscopy with random biopsies, MR enterography, stool testing for infection, celiac serologies, thyroid disease, and endoscopic ultrasound, which revealed a normal pancreas. Our clinical suspicion for EPI is very low despite the borderline fecal elastase, which can be from a loose consistency stool. I discussed that she most likely has irritable bowel syndrome with diarrhea predominance and meets all clinical criteria for that diagnosis. She has not been tried on high-dose fiber supplementation along with antispasmodics and antidiarrheals, so we will go ahead and do that today. Related to Irritable bowel syndrome with diarrhea FODMAP diet Related to Irrit able bowel syndrome with diarrhea 1. Stool testing for Giardia and Cryptosporidium.2. Fecal pancreatic elastase.3. Check thyroid profile and celiac serology.4. 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 The patient prefers [place] that is a much closer location for her. Related to Diarrhea, unspecified Lifestyle education regarding di et Related to Dietary counseling and surveillance Colon Polyps Related to Color ectal polyps Colon Cancer Prevention Related to Colorectal polyps Diverticulosis/Diverticulitis Re lated to Diverticulosis of colon without diverticulitis High Fiber Diet Related to Diver ticulosis of colon without diverticulitis 1. The patient was a dvised to minimize NSAIDs as able. May use acetaminophen.2. Diet as tolerated.3. May continue probiotics once daily for next 4 weeks.4. We will schedule the patient for an MR enterography in about 4 weeks to follow up imaging findings. If this reveals ongoing inflammation within the small bowel, we did discuss colonoscopy with ileal evaluation.The patient is agreeable to the plan as outlined. Related to Acute diarrhea Assessments Type Assessment Date No Information Patient Care Teams Name Effective Dates (start - stop) Status Members No Information
== END 2024-01-10 07:48 | disposition home or self-care (01) ==
LOC: INJ CL 07:47
PROVIDERS: PCP Family Medicine; Visit Provider Family Medicine
DX: M54.16 Radiculopathy, lumbar region (principal); M51.36 Other intervertebral disc degeneration, lumbar region
CPT/HCPCS: 64483; 64484; J1100; Q9966

== ENCOUNTER 2024-03-11 14:00 | Outpatient (RCR) | payer MEDICARE, SELFPAY | END 2024-03-11 15:57 | disposition home or self-care (01) | PROVIDERS: PCP Family Medicine; Visit Provider Orthopaedic Surgery Orthopaedic Surgery of the Spine | DX: M48.062 Spinal stenosis, lumbar region with neurogenic claudication (principal); M54.50 Low back pain, unspecified; Z74.09 Other reduced mobility; M62.81 Muscle weakness (generalized); Z51.89 Encounter for other specified aftercare | CPT/HCPCS: 97110; 97140; 97162 ==

== ENCOUNTER 2024-03-19 15:15 | Outpatient (RCR) | payer MEDICARE, SELFPAY | END 2024-07-17 23:59 | disposition home or self-care (01) | PROVIDERS: PCP Family Medicine; Visit Provider Physician Assistant | DX: H81.11 Benign paroxysmal vertigo, right ear (principal); F88 Other disorders of psychological development; R26.89 Other abnormalities of gait and mobility; Z51.89 Encounter for other specified aftercare | CPT/HCPCS: 95992; 97110; 97140; 97162 ==

== ENCOUNTER 2025-02-03 14:57 | Outpatient (CLI) | payer MEDICARE, SELFPAY | END 2025-02-03 14:58 | disposition home or self-care (01) | LOC: NFLDREF 02-05 02:58 | PROVIDERS: PCP Family Medicine; Referring Provider Family Medicine; Visit Provider Physician Assistant | DX: R42 Dizziness and giddiness (principal); R26.81 Unsteadiness on feet; R61 Generalized hyperhidrosis; R51.9 Headache, unspecified; M54.2 Cervicalgia; N39.46 Mixed incontinence; Z51.89 Encounter for other specified aftercare | CPT/HCPCS: 80053; 82607; 84443 ==

== ENCOUNTER 2025-02-17 13:16 | Outpatient (CLI) | payer MEDICARE, SELFPAY | END 2025-02-17 13:17 | disposition home or self-care (01) | LOC: LKVREF 13:17 | PROVIDERS: PCP Family Medicine; Visit Provider Physician Assistant | DX: R42 Dizziness and giddiness (principal) | CPT/HCPCS: 80053 ==

== ENCOUNTER 2025-03-03 10:00 | Outpatient (RCR) | payer MEDICARE, SELFPAY | END 2025-07-01 23:59 | disposition home or self-care (01) | PROVIDERS: PCP Family Medicine; Visit Provider Family Medicine | DX: N39.46 Mixed incontinence (principal); Z51.89 Encounter for other specified aftercare | CPT/HCPCS: 97110; 97112; 97140; 97162; 97535 ==

== ENCOUNTER 2025-04-20 10:30 | Outpatient (RCR) | payer MEDICARE, SELFPAY | END 2025-05-17 14:36 | disposition home or self-care (01) | PROVIDERS: PCP Family Medicine; Visit Provider Family Medicine | DX: H81.12 Benign paroxysmal vertigo, left ear (principal); Z51.89 Encounter for other specified aftercare | CPT/HCPCS: 97110; 97112; 97140; 97161 ==

== ENCOUNTER 2025-05-25 12:03 | Outpatient (CLI) | payer MEDICARE, SELFPAY | END 2025-05-25 12:04 | disposition home or self-care (01) | LOC: INJ CL 12:03 | PROVIDERS: PCP Family Medicine; Visit Provider Family Medicine | DX: M53.3 Sacrococcygeal disorders, not elsewhere classified (principal) | CPT/HCPCS: 27096; J0702; Q9966 ==

== ENCOUNTER 2025-06-22 15:15 | Outpatient (RCR) | payer MEDICARE, SELFPAY | END 2025-07-20 16:17 | disposition home or self-care (01) | PROVIDERS: PCP Family Medicine; Visit Provider Nurse Practitioner | DX: Z98.1 Arthrodesis status (principal); Z51.89 Encounter for other specified aftercare | CPT/HCPCS: 97110; 97112; 97140; 97162; 97535 ==

== ENCOUNTER 2025-07-08 11:15 | Emergency (ER) | payer MEDICARE, SELFPAY ==
--- OUTSIDE RECORDS SUMMARY | 2025-06-11 10:00 | XMS_ITS | Encounter Summary ---
Author Organization [facility] Address [address] [place] [address] Care Team Providers Care Filer Finish Name Role Phone Latanya Green MD Primary Care Provide r Reason for Visit * ReasonCommentsProcedure * Other (Routine) - AuthorizedSpecialtyDiagnoses / ProceduresReferred By Contact Referred To Contact Diagnoses Occipital neuralgia of left side Myofascial pain Procedures [facility] PROCEDURE APPOINTMENT INJECTION AA&/STRD GREATER OCCIPITAL NERVE INJECTION AA&/STRD OTHER PERIPHERAL NERVE/BRANCH INJECTION SINGLE/HIGH SCHOOL COMPUTER SCIENCE TEACHER TRIGGER POINT 1/2 MUSCLES INJECTION SINGLE/HIGH SCHOOL COMPUTER SCIENCE TEACHER TRIGGER POINT 3/> MUSCLES Marium Eagle PA-C [address] [facility] [address] [place] [address] Phone: tel: fax: Referral IDStatusReasonStart DateExpiration DateVisits RequestedVisits [id number] Encounter Details DateTypeDepartmentCare Team (Latest Contact Info)Gtkrwgpszsv39/21/2025 10:00 AM CSTOffice Visit [facility] [address] [facility] [address] [place] [address] Myofascial pain (Primary Dx); Bilateral occipital neuralgia Social History Tobacco UseTypesPacks/DayYears UsedDateSmoking Tobacco: NeverSmokeless Tobacco: NeverCommentsUnknownSex and Gender InformationValueDate RecordedSex Assigned at BirthNot on fileLegal AbrFgtzxs33/22/2013 12:09 PM CDTGender IdentityNot on fileSexual OrientationNot on filedocumented as of this encounter Patient Instructions * Patient Instructions* Renata Zhang MA - 06/11/2025 10:00 AM WOOD CARVER HAND A trigger point injection was performed at the site of maximal tenderness using 1% plain Lidocaine and decadron. This was well tolerated, and followed by good relief of pain. CARVER HAND documented in this encounter Progress Notes * Kirt Devries MD - 06/11/2025 10:00 AM CST Procedure note for greater and lesser occipital nerve block: - Indication for procedure: Headache/ tenderness to palpation in the greater and lesser occipital nerve distributions. - Proper consent obtained. The patient was seated while in the procedure. The scalp was cleaned with alcohol, and the site of the greater and lesser occipital nerve tenderness was located by mild palpation. - After confirming repetition of the usual headaches with mild palpation, the procedure was offeredto the patient along with its alternatives and risk factors involved. - After cleaning the area with alcohol, a total dose of 2 mL of lidocaine 1 % and decadron was injected around bilateral greater occipital nerve sites. -- After cleaning the area with alcohol, a total dose of 2 mL of lidocaine 1 % and decadron was injected around bilateral lesser occipital nerve sites. - No immediate complications were noted and a total of less than 1-2 drops of blood loss was noted at the site of injection. - The patient stabilized immediately after the procedure, and reported mild relief in headache/painafter the procedure. - The patient was observed for 10 minutes and discharged in stable condition. Procedure note for trigger point injections: - Indication for procedure: Pain and tenderness to palpation in the trigger point distributions. - Proper consent obtained. The patient was seated while in the procedure. The area was cleaned withalcohol, and the site of the painful trigger points was located by mild palpation. Six triggerpoints were located in the bilateral Trapezius, supraspinatus, rhomboid locations. - After confirming repetition of the usual pain with mild palpation, the procedure was offered to the patient along with its alternatives and risk factors involved. - After cleaning the area with alcohol, a total dose of 4 mL of lidocaine 1 % was injected around the trigger points. - No immediate complications were noted and a total of less than 1-2 drops of blood loss was noted at the site of injection. - The patient stabilized immediately after the procedure, and reported some relief in pain after the procedure. - The patient was observed for 10 minutes and discharged in stable condition. Provider Scribe Attestation: I have reviewed the documentation created by the scribe, Renata Zhang MA. The note accurately reflects the patient encounter, the history obtained, physical examination findings, and medical decision-making that I personally performed. I affirm the accuracy and completeness of the documentation. Kirt Devries MD Neurologist, [facility] 11:02 AM 06/11/2025 CARVER HAND documented in this encounter Plan of Treatment Not on file documented as of this encounter Visit Diagnoses Diagnosis Myofascial pain- Primary Mylagia and myositis, unspecified Bilateral occipital neuralgia Other syndromes affecting cervical region documented in this encounter Administered Medications Medication OrderMAR ActionAction DateDoseRateSite dexAMETHasone (DECADRON) injection 10 mg 10 mg, IntraMUSCULAR, ONCE, 1 dose, On Sat06/11/25 at 1015 Indications:Myofascial pain,Bilateral occipital ptxebtvygJwurd98/21/2025 10:00 AM CST10 mgOther (Comment) lidocaine 1% injection (conc: 10 mg/mL) 8 mL 8 mL, Intradermal, ONCE, 1 dose, On Sat06/11/25 at 1015 Indications:Myofascial pain,Bilateral occipital yqeakshvrRbrxj12/21/2025 10:01 AM CST8 mLOther (Comment)documented in this encounter Care Teams Team MemberRelationshipSpecialtyStart DateEnd Latanya Green MD [address] [place] [address] PCP - General01/26/25documented as of this encounter
--- OUTSIDE RECORDS SUMMARY | 2025-06-28 08:30 | XMS_ITS | Encounter Summary ---
Author Organization [facility] Address [address] [place] [address] Care Team Providers Care Snowboard Designer Name Role Phone Latanya Green MD Primary Care Provide r Reason for Visit * ReasonCommentsFollow up Encounter Details DateTypeDepartmentCare Team (Latest Contact Info)Iqwohkkrkpl78/08/2025 8:30 AM CSTOffice Visit [facility] - [address] [place] [phone] Marium Eagle PA-C [address] [place] [address] [place] [address] Cervical radiculopathy (Primary Dx); Occipital neuralgia of left side; Bilateral carpal tunnel syndrome; Myofascial pain; Neck pain Social History Tobacco UseTypesPacks/DayYears UsedDateSmoking Tobacco: NeverSmokeless Tobacco: NeverCommentsUnknownSex and Gender InformationValueDate RecordedSex Assigned at BirthNot on fileLegal HfcAurihh25/22/2013 12:09 PM CDTGender IdentityNot on fileSexual OrientationNot on filedocumented as of this encounter Patient Instructions * Patient Instructions* Marium Eagle PA-C - 06/28/2025 8:30 AM STARCH AND PROSIZE MIXER Follow up with Dr. Alba to discuss spine directed therapies Continue on current dose of Lyrica for now. Follow up in clinic in 2 months; sooner if needed. Keep your injection appointment for now, but can cancel if still noting no improvement CH AND PROSIZE MIXER documented in this encounter Progress Notes * Marium Eagle PA-C - 06/28/2025 8:30 AM CST CHIEF COMPLAINT: f/u History of Present Illness Marlys Alvarez is a 75 year old female with cervical spine issues who presents with persistent neck pain and associated symptoms. She experiences persistent pain on the left side of her neck and head, which has not been alleviated by previous ONB, TPI injections. She is currently taking pregabalin 100 mg three times a day, which she tolerates well, but it has not significantly improved her symptoms. She wants to improve her pain rather than just manage it. She describes experiencing dizziness and vomiting, which she believes may be related to her neck issues. A recent episode involved a sensation of being lifted and tipped out of bed, leading to vomiting. She has been using a neck brace, which provides some relief from dizziness. She has a history ofvertigo and nausea, initially attributed to vertigo, but later found improvement with neck brace use and working on her neck pain versus PT for vertigo. She has a history of spinal injections (left C3-4 facet joint injection), which initially provided relief, but was very short lasting. She then had medial branch block left C3, C4, C5 facet nerves, and according to procedure note, reported more improvement initially with this. She has not seen the sales product specialist since the last injection. She has been diagnosed with occipital neuralgia and myofascial pain, and has undergone physical therapy, nerve pain injections, and is on pregabalin. Despitethese treatments, she continues to experience pain and headaches that radiate from her neck to her head. Recent EMG showed bilateral CTS, but no signs of cervical radiculopathy. She reports some weakness in her left hand but is managing it. She has a history of lumbar spine surgery and bone spurs, which have caused significant pain in thepast. 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 EMG BUE 04/23/2025: Extensive electrodiagnostic evaluation of bilateral upper extremities shows median neuropathies at or distal to both wrists, electrically moderate on the left, mild to moderate on the right; and consistent with a clinical diagnosis of bilateral carpal tunnel syndrome. No clear electrodiagnostic evidence for a cervical motor radiculopathy is noted on the study. Electronically Signed By: Kirt Devries MD Neurologist, [facility] 1:23 PM 04/23/2025 BRAIN MRI IAC O 02/11/2025: 1. Normal appearance of the 7/8th cranial nerve complexes. 2. Small bilateral mastoid effusions. 3. Mild presumed age-related chronic small vessel ischemic change. Dre Castillo M.D. CERVICAL SPINE MRI WO 02/11/2025: 1. Multilevel facet degeneration with left CT 4 prominent active inflammation. 2. At least moderate to severe foraminal stenosis left C3-4, left C6-7, also moderate right C3-4, right C5-6. 3. Widely patent spinal canal with normal cord signal. Dre Castillo M.D. PHYSICAL EXAMINATION: CONSTITUTIONAL: Patient appears well nourished, well developed and in no apparent discomfort. MUSCULOSKELETAL: No joint deformity or swelling. Tenderness elicited upon palpation of left sided occipital nerve and myofascial trigger points of left sided trapezium and supraspinatus muscles reproducing headache pain. NEUROLOGICAL EXAMINATION: Level of Consciousness: Normal. Orientation: Alert and oriented to time, place and person. Memory: Intact recent and remote memory. Attention span and Concentration: Unremarkable. Language and Speech: Normal (can name, repeat phrases, good spontaneous speech). Fund of Knowledge: Within acceptable range. Cranial Nerves: 2,3,4,5,6,7,8,9,10,11,12 are unremarkable. Sensory: No overt sensory abnormalities to touch, pinprick. Motor: 4/5 left i&c tech strength compared to 5/5 right i&c tech strength. No abnormal movements seen. Finemotor skills are normal. Coordination: Coordination intact. Balance, Gait and Station: Unable to tandem gait. Deep Tendon Reflexes: Brachioradialis preserved and symmetric, 1+ left ankle jerk compared to 2+ right ankle jerk Assessment & Plan Left-sided cervical radiculopathy with associated pain, dizziness, occipital neuralgia and myofascial symptoms Chronic radiculopathy with moderate to severe C3-4 stenosis on the left side on recent cervical spine MRI. Cervicogenic dizziness suspected as cause for increase in dizzy spells recently, as this didimprove when her neck pain improved in the past/more spine related therapy was initiated. Current ma nagement has provided some relief, although minimal. Injections have been temporarily beneficial, and it sounds like she is considering ablation with her pain team, but has not followed up with her spine team since trying alternative therapies. We have tried Lyrica, ONB/TPI injections (with and without steroid), PT, spinal injections, all with minimal relief. - Decided to hold on increase pregabalin until she sees sales product specialist to discuss more targeted therapy options; could increase to 125 mg TID if tolerated. Would be concerned about sedative side effects and polypharmacy. - Consult with Dr. Alba for potential ablation or other spine-targeted treatments- her correction sales product specialist. Discuss C6-7 involvement on MRI and left i&c tech weakness (although EMG did not show any radiculopathy findings). - Maintain July ONB/TPI injection appointment unless deemed ineffective- then will cancel. - Follow-up in two months to reassess. Occipital neuralgia Chronic neuralgia with headaches affecting daily activities- thought to be secondary to underlying cervical spine disease. Current management provides minimal relief. - Continue pregabalin and physical therapy. Bilateral Carpal Tunnel Syndrome No symptoms at this time of pain, numbness, tingling in the hands. Does have some i&c tech weakness on the left side that she has been monitoring - Patient wants to defer any workup/management for this for now, as she is more focused on getting her neck pain and associated left shoulder and headache pain resolved at this time. I have discussed the above details with Ms. Alvarez at great length and she expressed understanding. she seemed satisfied with this conversation, and had no further queries as of now. she has our contact information and has been advised to stay in touch with us regarding any other issues that may arise. Thank you for allowing me to participate in Ms. Alvarez's care. Marium Eagle PA-C [facility] 11:16 AM 06/28/2025 MIPS 2024: Documentation of current mediations reviewed every visit 2. Does patient use tobacco? No 3. Patient has had no falls in calendar year 4. Does patient have Dementia? No I spent 32 minutes on the date of the encounter with this patient consisting of activities before, during and after the encounter including time spent: Preparing to see the patient including review of the chart, tests, and/or outside records. Reviewing and verifying information regarding the chief complaint and history already recorded by ancillary staff and/or the patient. Obtaining history and performing medically appropriate evaluation. Counseling the patient regarding the diagnosis, additional diagnostic considerations, possible diagnostic testing, and any potential options for therapy, including conservative/lifestyle measures and pharmacotherapy including risks/benefits, side effects and adverse effects. I also counseled the patient on how to contact me with any questions or concerns, new or worsening symptoms. Ordering medications, tests, and/or procedures, and documenting the chart. Please excuse any typographical errors, as this note was generated using a Voice Recognition Software. I am the single focal point of care for a condition that requires longitudinal relationship and personalized care for condition(s) specified within this medical record CH AND PROSIZE MIXER documented in this encounter Plan of Treatment Not on file documented as of this encounter Visit Diagnoses Diagnosis Cervical radiculopathy- Primary Brachial neuritis or radiculitis nos Occipital neuralgia of left side Bilateral carpal tunnel syndrome Carpal tunnel syndrome Myofascial pain Mylagia and myositis, unspecified Neck pain Cervicalgia documented in this encounter Care Teams Team MemberRelationshipSpecialtyStart DateEnd Date Latanya Green MD [address] [place] [address] PCP - General01/26/25documented as of this encounter
[2025-07-08] VITALS (19 sets, daily range): BP systolic 130–149; BP diastolic 78–90; PULSE 57–98; RESP 20–24; TEMP 35.4; O2SAT 91–95; BMI 29.2
--- OUTSIDE RECORDS SUMMARY | 2025-07-08 11:20 | XMS_ITS | Encounter Summary ---
Author Organization [facility] Address [address] [place] [address] Care Team Providers Care Analytical Manager Name Role Phone Latanya Green MD Primary Care Provide r Encounter Details DateTypeDepartmentCare Team (Latest Contact Info)Pyzgokinlod55/06/2025Results Follow-Up [facility] [address] [place] [phone] Renata Zhang MA EMG 2 EXTREMITY Social History Tobacco UseTypesPacks/DayYears UsedDateSmoking Tobacco: NeverSmokeless Tobacco: NeverCommentsUnknownSex and Gender InformationValueDate RecordedSex Assigned at BirthNot on fileLegal ViaGuwloe32/22/2013 12:09 PM CDTGender IdentityNot on fileSexual OrientationNot on filedocumented as of this encounter Plan of Treatment Not on file documented as of this encounter Visit Diagnoses Not on filedocumented in this encounter Care Teams Team MemberRelationshipSpecialtyStart DateEnd Date Latanya Green MD [address] [place] [address] PCP - General01/26/25documented as of this encounter
--- OUTSIDE RECORDS SUMMARY | 2025-07-08 11:20 | XMS_ITS | Clinical Summary ---
Author Organization 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 ??HAS TAKEN WITHOUT REACTION House Dust05/19/20253813GkhxepjpotvUkcswrg36/14/2020LatexItching,JiobGfs7505/07/2014 No lip swelling or anaphylaxsis MoldOther,Wasglxq3605/07/2014 SNEEZING AND WHEEZING Mold Ihxpwglq46/29/2025MorphineNausea,Other05/07/20145786AaaqipfZbxqwjz56/10/2015 UvpiOmzdfid04/25/2025Witch Hazel02/03/2025 Medications MedicationSigDispense QuantityRefillsLast FilledStart DateEnd DateStatus acetaminophen (TYLENOL) 500 mg oral tablet Take 2 tablets (1,000 mg) by mouth every 6 (six) hours as needed.Active albuterol HFA (PROVENTIL;VENTOLIN HFA) 90 mcg/actuation Inhl inhaler Inhale 2 puffs every 4 (four) hours as needed for shortness of breath or wheezing.Active amLODIPine (NORVASC) 2.5 mg oral tablet Take 1 tablet (2.5 mg) by mouth Daily.5Active amoxicillin (AMOXIL) 500 mg oral capsule Take 4 capsules (2,000 mg) by mouth once a day as needed.10/08/2023ctive cetirizine (ZYRTEC) 10 mg oral tablet Take 1 tablet (10 mg) by mouth Daily.Active DULoxetine (CYMBALTA) 30 mg oral delayed release capsule Take 1 capsule (30 mg) by mouth Daily.11/13/2024tive estradioL (ESTRACE) 0.01 % (0.1 mg/gram) Vagl cream vaginal cream Insert 1 g intravaginally every 7 (seven) days.03/10/2024ctive famotidine (PEPCID) 20 mg oral tablet Take 1 tablet (20 mg) by mouth twice a day.12/17/2024tive fluticasone (FLONASE) 50 mcg/actuation nasal spray Instill 2 sprays into each nostril once a day as needed.05/22/2024ctive hydrOXYzine HCl (ATARAX) 25 mg oral tablet Take 1 tablet (25 mg) by mouth.05/28/2024ctive oxyCODONE, immediate release, (ROXICODONE) 5 mg oral tablet Take 1 tablet (5 mg) by mouth every 4 (four) hours as needed.02/25/2025tive rosuvastatin (CRESTOR) 5 mg oral tablet Take 1 tablet (5 mg) by mouth Daily.10/08/2023ctive traZODone (DESYREL) 50 mg oral tablet Take 2 tablets (100 mg) by mouth Daily.5Active pregabalin (LYRICA) 100 mg oral capsule Indications:Occipital neuralgia of left side,Myofascial pain,Cervical radiculopathy,Neck painTake 1 capsule (100 mg) by mouth three times a day. 90 capsule 5Active cyclobenzaprine (FLEXERIL) 10 mg oral tablet Indications:Occipital neuralgia of left side,Myofascial pain,Cervical radiculopathy,Neck painTake 0.5-1 tablets (5-10 mg) by mouth twice a day as needed for muscle spasm. 20 tablet 5Active naloxone (NARCAN) 4 mg/actuation Nasal [place]ner Instill 1 spray (4 mg) into one nostril as directed. Deliver one spray (4mg) device into one nostril for suspected overdose. Call 911. Administer a second 4mg nasal spray device into alternate nostril if no response within 2 minutes. 2 each 5ActiveHospital, Clinic, or Other Facility Administered Medication Ordered DoseRouteFrequencyStart DateEnd DateStatus lidocaine 1% injection (conc: 10 mg/mL) 8 mL Indications:Myofascial pain,Bilateral occipital neuralgia8 tJSFkkTJAR67/21/2025 06/11/2025Ended dexAMETHasone (DECADRON) injection 10 mg Indications:Myofascial pain,Bilateral occipital fepdnbllp04 pfJGHTBU72/21/2025 06/11/2025Ended Active Problems ProblemNoted DateDiagnosed WpkgCrqvanv01/18/3998Tquoas54/29/2024Insomnia 05/19/2024Irritable bowel syndrome with aupkaapk96/29/2024ancreatic nyxuilkkohuxg64/29/2024Spinal stenosis of lumbosacral fitpgx4105/19/2024enign neoplasm of ascending colon08/01/2023enign neoplasm of cecum08/01/2023 Diverticular disease of large eewksmwxy89/08/2024Noninfectious gastroenteritis 3Depression, major, single episode, hhiweuda99/17/2023Hyperlipidemia 07/03/2022rimary yexbgzrrvxpw38/13/2022Obstructive sleep apnea treated with continuous positive airway pressure (CPAP)05/17/2021omplex regional pain syndrome type 1 of left lower ylihcarsy92/27/6860Lmkeatu21/27/2021Allergic conjunctivitis of both eyes01/02/2017Adjustment disorder with depressed mood 07/10/2016Gastroesophageal reflux zotljlv2707/14/2015 Overview (03/05/2025): EGD 07/2019 reflux on biopsy Left peroneal vein yjqfmetcaw34/14/2015denomatous polyp of colon07/12/2014 Overview (03/05/2025): Colonoscopy 06/2014 polyp repeat in 5 years Presence of ankle joint vxafcdjgyt82/09/2014S/P ankle joint replacement 05/10/llergic hibojbmuzq77/07/2013Herpes sleoic2610/28/2012 Encounters DateTypeDepartmentCare TwomDkyssvfstjw24/08/2025 8:30 AM CSTOffice Visit [address] [place] [phone] Marium Eagle PA-C Cervical radiculopathy (Primary Dx); Occipital neuralgia of left side; Bilateral carpal tunnel syndrome; Myofascial pain; Neck pain06/11/2025 10:00 AM CSTOffice Visit [address] [place] [phone] Myofascial pain (Primary Dx); Bilateral occipital vcyrhmrdh48/29/2025 2:30 PM CDTOffice Visit [address] [place] [phone] Marium Eagle PA-C Myofascial pain (Primary Dx); Bilateral occipital neuralgia; Bilateral carpal tunnel /06/2025Results Follow-Up [address] [place] [phone] Renata Zhang MA EMG 2 WWOJZICBV72/03/2025 10:45 AM CDTAncillary Procedure [address] [place] [id number] Cervical radiculopathy; Neck pain04/13/2025 9:30 AM CDTOffice Visit [address] [place] [phone] Myofascial pain (Primary Dx); Bilateral occipital neuralgiafrom Last 3 Months Social History Tobacco UseTypesPacks/DayYears UsedDateSmoking Tobacco: NeverSmokeless Tobacco: Never Tobacco Cessation:Counseling Given: Not Answered CommentsUnknownSex and Gender InformationValueDate RecordedSex Assigned at BirthNot on fileLegal RezJkpoqo38/22/2013 12:09 PM CDTGender IdentityNot on fileSexual OrientationNot on file Last Filed Vital Signs Vital SignReadingTime TakenCommentsBlood Pressure--Pulse--Temperature-- Respiratory Rate--Oxygen Saturation--Inhaled Oxygen Concentration--Lfgdil89.3 kg (210 lb)03/04/2025 8:50 AM BRNUeitkz338.3 cm (5' 11)03/04/2025 8:50 AM CDTBody Mass Index29.29003/04/2025 8:50 AM CDT Plan of Treatment Health MaintenanceDue DateLast KvmoZpckbwsuGysweolemjk1950Depression Follow-Up (PHQ-9)1951Yearly Review of HCD2000Osteoporosis Screening /, 05/05/2015Medicare Wellness Visit6010/15/2024, 10/08/2023, 10/04/2022, Additional history existsCOVID-19 Vaccine ( season)/04/2025, 04/19/2024, 05/15/2023, Additional history exists Mammogram Irwuhllgj17, 10/15/2024, 10/08/2023, Additional history existsAdult Tetanus Jumyeht14, 07/02/2018, 05/14/2008 Pneumococcal 50+ ZevyeRvkkvlkel96/20/2016, 05/05/2015Zoster VaccineCompleted 12/15/2019, 07/19/2019, 04/22/2015Hepatitis C MhftzzuavFcwawpnje19/11/2021RSV HnlwoixkMxhcnpimf77/29/2024Influenza DermnlwFgbnoruao91/10/2025, 04/19/2024, 05/15/2023, Additional history existsMeningococcal B VaccineAged OutNo longer eligible based on patient's age to complete this topic Procedures Procedure NamePriorityDate/TimeAssociated DiagnosisCommentsEMG 2 EXTREMITY Klpixnu5704/23/2025 11:23 AM CDT Cervical radiculopathy Neck pain from Last 3 Months Results * EMG 2 EXTREMITY (04/23/2025 11:23 AM CDT)Specimen (Source)Anatomical Location / LateralityCollection Method / VolumeCollection TimeReceived Time Narrative Kirt Devries MD - 04/23/2025 1:23 PM CDT Table formatting from the original result was not included. Images from the original result were not included. ??[facility] [address] [place] [address] Opt 2 ?Electromyography (EMG) Study Test Date: 04/23/2025 ?? Patient: Marlys Alvarez Electromyographer: Kirt Devries MD : 1950 Needle Bar Molder: Amaya Sex: Female Ref Phys: Marium Eagle PA-C Location: [facility] ? Patient Symptoms/Indication for EMG: Patient is a 74 year-old who presents with weakness in the left upper extremity. Symptoms have been present for several years. History of bilateral carpal tunnel release surgeries. Testing was performed by the [facility]'s EMG equipment and supplies. Temp: RUE 33.5 C LUE 33.8 C EMG & NCV Findings: Evaluation of the left median motor nerve showed prolonged distal onset latency (4.6 ms), reduced amplitude (Wrist, 4.6 mV), and reduced amplitude (Elbow, 4.6 mV). ??The left median sensory and the right median sensory nerves showed prolonged distal peak latency (L3.9, R3.8 ms). ??All remaining nerves (as indicated in the following tables) were within normal limits. ?? All F Wave latencies were within normal limits. ?? Needle evaluation of the right abductor pollicis brevis and the left abductor pollicis brevis muscles showed increased 1+ motor unit amplitude, increased motor unit duration, and mild reduced ??recruitment. ??All remaining muscles were normal as shown in the table. ?? Conclusion: Extensive electrodiagnostic evaluation of bilateral upper extremities shows median neuropathies at or distal to both wrists, electrically moderate on the left, mild to moderate on the right; and consistent with a clinical diagnosis of bilateral carpal tunnel syndrome. ?? No clear electrodiagnostic evidence for a cervical motor radiculopathy is noted on the study. Electronically Signed By: Kirt Devries MD Neurologist, [facility] 1:23 PM 04/23/2025 ?? Nerve Conduction Studies Anti Sensory Summary Table Stim Site NR Peak (ms) Norm Peak (ms) O-P Amp (??V) Norm O-P Amp Site1 Site2 Dist (cm) Norm Wayne (m/s) Left Median Anti Sensory (2nd Digit) Wrist 3.9 <3.5 16.2 >15 Wrist 2nd Digit 13.0 Site 2 ?3.8 ??16.2 ? Right Median Anti Sensory (2nd Digit) Wrist 3.8 <3.5 19.8 >15 Wrist 2nd Digit 13.0 Site 2 ?3.7 ??17.4 ? Right Radial Anti Sensory (Base 1st Digit) Wrist 2.1 <3.0 21.7 >10 Wrist Base 1st Digit 10.0 Site 2 ?2.1 ??21.5 ? Left Ulnar Anti Sensory (5th Digit) Wrist 3.4 <3.5 16.6 >10 Wrist 5th Digit 13.0 Site 2 ?3.4 ??16.0 ? Right Ulnar Anti Sensory (5th Digit) Wrist 3.3 <3.5 17.6 >10 Wrist 5th Digit 13.0 Site 2 ?3.3 ??15.9 ? Motor Summary Table Stim Site NR Onset (ms) Norm Onset (ms) O-P Amp (mV) Norm O-P Amp Site1 Site2 Dist (cm) Wayne (m/s) Norm Wayne (m/s) Left Median Motor (Abd Poll Brev-7cm) Wrist 4.6 <4.5 4.6 >5 Elbow Wrist 28.0 54 >47 Elbow 9.8 4.6 >5 Right Median Motor (Abd Poll Brev-7cm) Wrist 4.5 <4.5 5.5 >5 Elbow Wrist 28.0 53 >47 Elbow 9.8 5.2 >5 Left Ulnar Motor (Abd Dig Minimi-7cm) Wrist 3.1 <3.8 8.0 >5 Wrist B Elbow 19.0 56 >47 B Elbow 6.5 7.3 A Elbow Wrist 30.0 57 >47 A Elbow 8.4 7.1 B Elbow A Elbow 11.0 58 >47 Right Ulnar Motor (Abd Dig Minimi-7cm) Wrist 3.1 <3.8 8.7 >5 Wrist B Elbow 22.0 61 >47 B Elbow 6.7 8.1 A Elbow Wrist 34.0 61 >47 A Elbow 8.7 7.7 B Elbow A Elbow 12.0 60 >47 F Wave Studies NR F-Lat (ms) Lat Norm (ms) L-R F-Lat (ms) Left Median (Mrkrs) (Abd Poll Brev) 31.43 <32 0.00 Right Median (Mrkrs) (Abd Poll Brev) 31.43 <32 0.00 Left Ulnar (Mrkrs) (Abd Dig Min) 30.90 <32 0.00 Right Ulnar (Mrkrs) (Abd Dig Min) 30.90 <32 0.00 EMG Side Muscle Nerve Root Ins Act Fibs/Pwaves Amp Dur Poly Recrt Fasics Comment Right Deltoid Axillary C5-6 Nml 0 Nml Nml Nml Nml 0 ?? Right Biceps Musculocut C5-6 Nml 0 Nml Nml Nml Nml 0 ?? Right BrachioRad Radial C5-6 Nml 0 Nml Nml Nml Nml 0 ?? Right Triceps Radial C6-7-8 Nml 0 Nml Nml Nml Nml 0 ?? Right ExtDigCom Radial (Post Int) C7-8 Nml 0 Nml Nml Nml Nml 0 ?? Right FlexCarRad Median C6-7 Nml 0 Nml Nml Nml Nml 0 ?? Right 1stDorInt Ulnar C8-T1 Nml 0 Nml Nml Nml Nml 0 ?? Right Abd Poll Brev Median C8-T1 Nml 0 inc1+ Incr Nml Reduced-mild 0 ?? Right ExtIndicis Radial (Post Int) C7-8 Nml 0 Nml Nml Nml Nml 0 ?? Left Deltoid Axillary C5-6 Nml 0 Nml Nml Nml Nml 0 ?? Left Biceps Musculocut C5-6 Nml 0 Nml Nml Nml Nml 0 ?? Left BrachioRad Radial C5-6 Nml 0 Nml Nml Nml Nml 0 ?? Left Triceps Radial C6-7-8 Nml 0 Nml Nml Nml Nml 0 ?? Left FlexCarRad Median C6-7 Nml 0 Nml Nml Nml Nml 0 ?? Left ExtIndicis Radial (Post Int) C7-8 Nml 0 Nml Nml Nml Nml 0 ?? Left ExtDigCom Radial (Post Int) C7-8 Nml 0 Nml Nml Nml Nml 0 ?? Left 1stDorInt Ulnar C8-T1 Nml 0 Nml Nml Nml Nml 0 ?? Left Abd Poll Brev Median C8-T1 Nml 0 inc1+ Incr Nml Reduced-mild 0 ?? Waveforms: ? Authorizing ProviderResult TypeResult StatusMarium [facility] [place] ORDERABLE Final Result from Last 3 Months Insurance Care Teams Team MemberRelationshipSpecialtyStart DateEnd Date Latanya Green MD [address] [place] [phone] [facility] - Xljlnjt01/26/25
--- OUTSIDE RECORDS SUMMARY | 2025-07-08 11:20 | XMS_ITS | Clinical Summary ---
Author Organization [facility] Address [address] [place] [address]. [place] [address] Care Team Providers Care Painter Rough Name Role Phone Latanya Green Primary Care Provider [phone] Allergies Active AllergyReactionsCriticalityNoted CtojMnxcisrfVahthahHqywgyc30/17/2014 NOTED FROM ALLERGY TESTING Cats05/07/2014 FUR, DANDER, SALIVA CodeineNausea,Xxycoex1505/07/2014 TYLENOL #3 - THINKS REACTION IS NIGHTMARES, BUT UNSURE CAN TAKE PERCOCET OR VICODIN WITHOUT ISSUES DicloxacillinOther (See Comments)05/07/2014 HEARTBURN PCN IS OK. ??HAS TAKEN WITHOUT REACTION Dust MitesOther (See Comments)05/07/2014 SNEEZING AND WHEEZING LatexItching,QkdaGig7805/07/2014 No lip swelling or anaphylaxsis MoldOther (See Comments)05/07/2014 SNEEZING AND WHEEZING MorphineNausea and Tvfewyee47/17/2014 Medications MedicationSigDispense QuantityRefillsLast FilledStart DateEnd DateStatus albuterol (PROAIR HFA, PROVENTIL HFA, VENTOLIN HFA) 108 (90 BASE) MCG/ACT inhaler Inhale 2 puffs into the lungs every 4 hours as needed for shortness of breath / dyspnea or wheezingActive cetirizine (ZYRTEC) 10 MG tablet Take 10 mg by mouth daily.Active Cholecalciferol (VITAMIN D3 PO) Take 2,000 Units by mouth dailyActive fluticasone (FLONASE) 50 MCG/ACT nasal spray [place] 2 sprays into both nostrils daily as needed for allergiesActive GABAPENTIN PO Take 600 mg by mouth 2 times daily.Active Calcium Carbonate-Vit D-Min (CALCIUM 1200 PO) Take 1 tablet by mouth 2 times daily.Active AMOXICILLIN PO Take 2,000 mg by mouth daily as needed (1 Hour Prior to Dental Appointment) Active senna-docusate (SENOKOT-S;PERICOLACE) 8.6-50 MG per tablet Indications:Status post total right knee replacementTake 2 tablets by mouth 2 times daily 120 tablet Active famotidine (PEPCID) 20 MG tablet Take 20 mg by mouth 2 times dailyActive amLODIPine (NORVASC) 2.5 MG tablet Take 2.5 mg by mouth daily.Active clotrimazole (LOTRIMIN) 1 % external cream Apply topically 2 times daily as needed (intertrigo).Active estradiol (ESTRACE) 0.1 MG/GM vaginal cream Place vaginally once a week.Active fluticasone (FLOVENT HFA) 110 MCG/ACT inhaler Inhale 1 puff into the lungs 2 times daily as needed (asthma).Active meclizine (ANTIVERT) 25 MG tablet Take 25 mg by mouth 3 times daily as needed for dizziness.03/10/2024ctive methocarbamol (ROBAXIN) 500 MG tablet Take 250 mg by mouth 4 times daily.05/22/2024ctive Multiple Vitamin (ONE-A-DAY ESSENTIAL) TABS Take 1 tablet by mouth daily.08/16/2023ctive rosuvastatin (CRESTOR) 5 MG tablet Take 1 tablet by mouth at bedtime.10/08/2023ctive traZODone (DESYREL) 50 MG tablet Take 50 mg by mouth at bedtime.Active ketotifen fumarate 0.035% 0.035 % SOLN ophthalmic solution Place 1 drop into both eyes at bedtime.Active acetaminophen (TYLENOL) 500 MG tablet Take 1,000 mg by mouth every 6 hours.Active naloxone (NARCAN) 4 MG/0.1ML nasal spray Indications:S/P lumbar fusionSpray 1 spray (4 mg) into one nostril alternating nostrils as needed for opioid reversal. every 2-3minutes until assistance uspegtj03/04/2024ctive DULoxetine (CYMBALTA) 60 MG capsule Take 60 mg by mouth at bedtime.Active hydrOXYzine HCl (ATARAX) 25 MG tablet Take 1 tablet (25 mg) by mouth every 6 hours as needed for other (pain and anxiety).05/28/2024ctive polyethylene glycol (MIRALAX) 17 GM/Dose powder Take 17 g by mouth daily as needed for constipation.05/28/2024ctive HYDROmorphone (DILAUDID) 2 MG tablet Indications:S/P lumbar fusionTake 1.5 tablets (3 mg) by mouth every 4 hours as needed for pain. 30 tablet 05/28/2024ctive Active Problems ProblemNoted DateDiagnosed DateACP (advance care planning)12/07/2015 Overview (12/07/2015): Advance Care Planning 12/07/2015: Receipt of ACP document: Received: Health Care Directive which waswitnessed or notarized on 07-31-14. Document previously scanned on 09-14-15. Validation form completed and sent to be scanned. Code Status reflects choices in most recent ACP document. Confirmed/documented designated decision maker(s). Added by Dorothy Doyle RN, System Director ACP- Honoring Choices Status post total right knee undkniaftws31/24/2016S/P ankle joint replacement 05/10/2014 Resolved Problems ProblemNoted DateDiagnosed DateResolved DateShoulder impingement syndrome Primary localized osteoarthrosis of shoulder region Overview (04/22/2015): Problem list name updated by automated process. Provider to review Pain in joint, shoulder oclklg29Primary localized osteoarthrosis, ankle and foot07/29/Other enthesopathy of ankle and dmfowu50Effusion of ankle and foot joint12/18/2006 07/29/2007Primary localized osteoarthrosis, ankle and foot12/09/ Pain in joint, ankle and foot12/09/ Encounters DateTypeDepartmentCare ZkaaRyjksqoeqzz96/13/2025[facility] [address] [address] Lisa Sánchez RP from Last 3 Months Social History Tobacco UseTypesPacks/DayYears UsedDateSmoking Tobacco: Never Tobacco Cessation:Counseling Given: Not Answered Alcohol UseStandard Drinks/WeekCommentsYes0 (1 standard drink = 0.6 oz pure alcohol)2X/ MONTHLYAdolescent EducationAnswerDate RecordedGetting School Help NeededNot on file4CommentsNoSex and Gender InformationValueDate RecordedSex Assigned at BirthNot on fileLegal VjeIpdmus83/04/2012 3:32 AM [employer] Gender IdentityNot on fileSexual OrientationNot on file Last Filed Vital Signs Vital SignReadingTime TakenCommentsBlood Jijwcpcv515/7205/27/2024 12:40 PM [employer] Nlgqq151905/27/2024 12:40 PM EUGMmgttbnzkec75.4 ??C (97.6 ??F)05/27/2024 12:40 PM CSTRespiratory Dxzf045507/27/2023 12:40 PM CSTOxygen Edclvwthpe81%05/27/2024 12:40 PM CSTInhaled Oxygen Concentration--Vjsycd56.8 kg (198 lb)05/27/2024 12:40 PM MUOLmkkxi089.6 cm (5' 4)05/27/2024 12:40 PM CSTBody Mass Index33.9905/27/2024 12:40 PM [employer] Plan of Treatment Health MaintenanceDue DateLast DoneCommentsADVANCE CARE TQYHLTQX1950ANNUAL REVIEW OF HM WKAMQP57 1950ASTHMA ACTION PLAN1950ASTHMA CONTROL TEST 1950CT EPWMCZGFYUWK32/27/8599ZNT89 1950FLEX SIG1950LIPID 1950sDNA (Cologuard)1950FALL RISK HZTJQKJJSC75/27/2015PHQ-2 (once per calendar year)2024MEDICARE ANNUAL WELLNESS VISIT/, 10/04/2022, 08/17/2021, Additional history existsCOVID-19 VACCINE ( season)/, 05/15/2023, 11/30/2022, Additional history exists INFLUENZA VACCINE (#1)/, 05/15/2023, 05/08/2022, Additional history ppvcfiCRX37/05/64723907/26/2023, 09/15/2015DIABETES JCWAEONHK01/05/2027 05/26/2024, 09/15/2015, 05/12/2014, Additional history existsDTAP/TDAP/TD VACCINE (4 - Td or Tdap), 07/02/2018, 05/14/2008COLONOSCOPY 4007/29/2023OLORECTAL CANCER RYMOPGPKD73/08/2885IAUY45/18/2036 08/08/2020MENINGITIS VACCINEAged Out12/05/1995No longer eligible based on patient's age to complete this topicPNEUMOCOCCAL VACCINE 50+ YEARSCompleted 07/10/2016, 05/05/2015LUNG CANCER TMMAJJLWBMmtqofaktftr27/26/2018ZOSTER VACCINE Zutuhmcuk18/26/2020, 07/19/2019, 04/22/2015HEPATITIS C SCREENINGCompleted 03/01/2021MAMMO NTFHWIPIFKyhakxtxlmnq87/19/2024, 10/08/2023, 10/04/2022, Additional history existsRSV LWTWAGYYrtdtlhav37/29/2024HPV VACCINE (No Doses Required)Completed Medical Devices ImplantedTypeAreaManufacturerDevice IdentifierShelf Expiration DateModel / Serial / LotTornier Tibial Insert Left Size 3 Implanted:Qty: 1 [facility]10[facility] AnkleTORNIER INC07/21/2015LJU288 / [id number] / Tornier Talar Part Short Peg Left Size 3 Implanted:Qty: 1 on 05/10/2014 [facility] AnkleTORNIER INC04/20/2018LJU823 / [id number] / Imp Insert Tornier Tibial Ankle Base Size 3 [id number] Implanted:Qty: 1 on 05/10/2014 [facility]: AnkleTORNIER INC12/19/2018LJU223 / [id number] / Size 5-6 10mm Articular Insert Implanted:Qty: 1 on 09/14/2015 [facility]Right: KneeSMITH & YEGLTZ57/28/[id number] / / [id number] Cement Palacos [id number] Implanted:Qty: 1 on 09/14/2015 [facility]: KneeZIMMER U.S. INC06/20/[id number] / / [id number] Baseplate Tibial Kristyn Ii Sz 6 Rt Ti [id number] Implanted:Qty: 1 on 09/14/2015 [facility]: KneeSMITH & NEPHEW INC-R1/[id number] / / [id number] 6n, Right Cruciate Retaining Femoral Component Implanted:Qty: 1 on 09/14/2015 [facility]: KneeSMITH & DFUTRA28/30/[id number] / / [id number] Comp Patella Snn Gen Ii Resurfacing 38mm [id number] Implanted:Qty: 1 on 09/14/2015 [facility]: KneeSMITH & NEPHEW INC-R1/[id number] / / [id number] IdentifierShelf Expiration Date Model / Serial / LotAgility Total Ankle Components X3 (Sent For Research With César Villagran) Explanted:Qty: 3 on 05/10/2014 [facility] Ankle1 Screw (Discarded) Explanted:Qty: 1 on 05/10/2014 [facility]le Procedures Procedure NamePriorityDate/TimeAssociated DiagnosisCommentsGLUCOSE (OUTREACH) Hikugzi7805/26/2024 7:32 AM [employer] Anemia, unspecified COVID-19 BASIC METABOLIC PANEL NO GLUCOSE (OUTREACH)Aqyvtgg3705/26/2024 7:32 AM [employer] Anemia, unspecified COVID-19 from Last 3 Months or Most Recently Relevant to Health Maintenance Results * (ABNORMAL) Basic Metabolic Panel No Glucose (OUTREACH) (05/26/2024 7:32 AM [employer])ComponentValueRef RangeTest MethodAnalysis TimePerformed AtPathologist HymgcxstlIftvce363202 - 145 mmol/L107/26/2023 10:18 AM [facility] Potassium3.83.4 - 5.3 mmol/L107/26/2023 10:18 AM [facility] XVNBYKURVIGzqbnqpy9931 - 107 mmol/L107/26/2023 10:18 AM [facility] LABORATORYCarbon Dioxide (CO2)2222 - 29 mmol/L107/26/2023 10:18 AM [facility] LABOR[facility]ORYAnion Sch434 - 15 mmol/L107/26/2023 10:18 AM [facility] LABORATORYUrea Ydsequto51.18.0 - 23.0 mg/dL05/26/2024 10:18 AM [facility] LABOR[facility]ORYCreatinine0.840.51 - 0.95 mg/dL05/26/2024 10:18 AM [facility] LABORATORYGFR Cdmucige29>60 mL/min/1.06n35705/26/2024 10:18 AM [facility] Calcium8.7(L)8.8 - 10.4 mg/dL05/26/2024 10:18 AM [facility] LABORATORYComment: Reference intervals for this test were updated on 02/04/2024 to reflect our healthy population more accurately. There may be differences in the flagging of prior results with similar values performed with this method. Those prior results can be interpreted in the context of the updated reference intervals. Specimen (Source)Anatomical Location / LateralityCollection Method / Volume Collection TimeReceived TimeBloodSTRUCTURE OF LEFT HAND / UnknownVenipuncture / Pctoavs9105/26/2024 7:32 AM CST05/26/2024 9:54 AM [employer] Narrative Authorizing ProviderResult TypeResult StatusBridget Angie Emily SUSAN CNPLAB - BLOOD ORDERABLESFinal ResultPerforming OrganizationAddressCity/State/ZIP Code Phone Number [facility] [address] Lab (1st floor, no room number) [place] [address] * Glucose (OUTREACH) (05/26/2024 7:32 AM [employer])ComponentValueRef RangeTest Method Analysis TimePerformed AtPathologist TqyfucalmIfrywhb0702 - 99 mg/dL05/26/2024 10:20 AM [facility] LABORATORYSpecimen (Source)Anatomical Location / Laterality Collection Method / VolumeCollection TimeReceived TimeBloodSTRUCTURE OF LEFT HAND / UnknownVenipuncture / Prylclj9105/26/2024 7:32 AM CST05/26/2024 9:54 AM [employer] Narrative Authorizing ProviderResult TypeResult StatusBridget Angie Diaz APRN CNPLAB - BLOOD ORDERABLESFinal ResultPerforming OrganizationAddressCity/State/ZIP Code Phone Number [facility] [address] Lab (1st floor, no room number) [place] [phone] from Last 3 Months or Most Recently Relevant to Health Maintenance Insurance * Guarantor: Marlys Alvarez TypeRelation to PatientDate of PhoneBilling AddressPersonal/LtktobJgax[address] [place] [address] * Guarantor: LILIBETH RIDGES,CLIENT SUBMITTERAccount TypeRelation to PatientDate of BirthPhoneBilling AddressClient/SubmitterOther [address] [place] [address] Advance Directives For more information, please contact: [phone] TypeDate RecordedPatient RepresentativeExplanationAdvance Directives and Living Will09/14/2015 7:21 PMHealth Care Directive 07-31-14 * Full Code (Latest Code Status on File) Date ActivatedDate InactivatedComments09/17/2015 12:21 PM11/11/2023 11:26 AM * Full Code Date ActivatedDate InactivatedComments09/14/2015 4:50 PM2 12:21 PM Care Teams Team MemberRelationshipSpecialtyStart DateEnd Date Latanya Green PCP - GeneralFamily Practice04/19/14
--- OUTSIDE RECORDS SUMMARY | 2025-07-08 11:20 | XMS_ITS | Clinical Summary ---
Author Organization [employer] [facility] Address [facility] [place] [address] Care Team Providers Care South Asian History Professor Name Role Phone Magalie Ta MD Unavailable Latanya Green MD Primary Care Provide r Donald Simon MD Unavailable [phone] Cecilia Carey PharmD Unavailable [phone] Allergies Active AllergyReactionsCriticalityNoted DateCommentsAlfalfaAllergenic Extracts ZkovormoGkg31/25/2021ats (Fur, Dander, Saliva)Shortness Of Breath,Wheezing 06/29/2013Clove OilOther - Describe In Comment PioukCesp04/25/2021Clove Oil- Witch Prudence LeafOther - Describe In Comment Field10/19/2019 Pain and swelling with dry socket packing DicloxacillinGI Upset06/03/2023 severe heartburn House XxzxKjkkaowouiaYiwgqfb17/14/7539VychfWvdg31/13/2023Mold*Kqrefvr2411/13/2024 Mold ExtractsMorphineNausea And Vomiting,Bseyjwjawq32/13/2023RagweedItching 03/31/2015Silk*Ymjlgvg4411/13/2024Unlisted Allergen (Include Detail In Comments) SILK also lataex sensatiavity Medications MedicationSigDispense QuantityRefillsLast FilledStart DateEnd DateStatus cholecalciferol (VITAMIN D-3) 2,000 unit capsule Take 1 capsule by mouth once daily.ctive cetirizine (ZYRTEC) 10 mg tablet Indications:Seasonal allergiesTake 1 tablet by mouth once daily. 90 tablet ctive acetaminophen (TYLENOL EXTRA STRGTH) 500 mg tablet Take 1,000 mg by mouth every 6 hours if needed.Active calcium carbonate (CALTRATE) 600 mg calcium (1,500 mg) tablet Indications:Healthcare maintenanceTake 2 Tablets (1,200 mg) by mouth two times daily with meals.08/16/2023ctive multivitamin (MVI) tablet Indications:Healthcare maintenanceTake 1 Tablet by mouth once daily.08/16/2023 Active albuterol HFA (ProAir HFA) 90 mcg/actuation inhaler Indications:Bronchitis,Moderate persistent asthma, unspecified whether complicated (HC)Inhale 2 Puffs by mouth every 4 hours if needed for Shortness Of Breath or Wheezing. 1 Each ctive amoxicillin (AMOXIL) 500 mg capsule Indications:History of left ankle joint replacementTake 4 Capsules (2,000 mg) by mouth one time if needed (prior to procedure) for up to 4 doses. TAKE4 CAPSULES BY MOUTH 1 HOUR BEFORE PROCEDURE. 4 Capsule ctive estradioL (ESTRACE) 0.01% (0.1 mg/g) vaginal cream Indications:Atrophic vaginitisInsert 1 g into the vagina once weekly. 42.5 g ctive fluticasone propionate (FLOVENT) 110 mcg/Actuation inhaler Inhale 110 mcg by mouth 2 times daily if needed.Active fluticasone (50 mcg per actuation) nasal solution (FLONASE) Indications:Allergic rhinitis due to animal hair and danderInhale 2 Sprays in both nostrils once daily if needed for Rhinitis.05/22/2024ctive saliva substitute combo no.12 sprp Indications:Dry mouthApply to the lining of the mouth. 30 mL ctive amLODIPine 2.5 mg tablet Indications:HTN (hypertension)TAKE 1 TABLET BY MOUTH ONCE DAILY. 90 Tablet tive traZODone 50 mg tablet Indications:Primary insomniaTAKE 2 TABLETS (100 MG) BY MOUTH AT BEDTIME 180 Tablet tive rosuvastatin 5 mg tablet Indications:Hyperlipidemia, unspecified hyperlipidemia typeTake 1 Tablet (5 mg) by mouth at bedtime. 90 Tablet 5Active methocarbamoL 500 mg tablet Indications:Degeneration of intervertebral disc of lumbar region with discogenic back painTake 1 Tablet (500 mg) by mouth 3 times daily if needed for Muscle Spasm. Rare use.5Active famotidine 20 mg tablet Indications:Chronic GERDTAKE 1 TABLET BY MOUTH TWO TIMES DAILY. 180 Tablet 5Active ondansetron 4 mg disintegrating tablet Indications:NauseaPlace 1 Tablet (4 mg) on the tongue every 8 hours if needed for Nausea/Vomiting. 21 Tablet 5Active cyclobenzaprine (FLEXERIL) 10 mg tablet Indications:Left cervical radiculopathyTake 1 Tablet (10 mg) by mouth 3 times daily if needed for Muscle Spasm. 42 Tablet 02/25/2025 1:01 PM CDT5Active pregabalin (LYRICA) 100 mg capsule Take 100 mg by mouth three times daily.5Active magnesium glycinate 100 mg magnesium cap Indications:Sleep concernTake 200 mg by mouth.5Active DULoxetine (CYMBALTA) 60 mg Delayed-release capsule Indications:Other chronic painTake 1 Capsule (60 mg) by mouth once daily. In the AM5Active oxyCODONE (ROXICODONE) 5 mg immediate release tablet Indications:Restless leg syndromeTake 1 Tablet (5 mg) by mouth at bedtime. 30 Tablet 5Active hydrOXYzine HCL (ATARAX) 25 mg tablet Indications:Spinal stenosis of lumbosacral regionTake 1 Tablet (25 mg) by mouth every 6 hours if needed for Anxiety. 60 Tablet 5Active albuterol 0.083% (2.5 mg/3 mL) neb solution Indications:Pneumonia of right upper lobe due to infectious organism,Moderate persistent asthma with exacerbation (HC)Inhale 3 mL (2.5 mg) via a nebulizer every 4 hours if needed for Shortness Of Breath or Wheezing. 180 mL 1115Active azithromycin 500 mg tablet Indications:Pneumonia of right upper lobe due to infectious organismTake 1 Tablet (500 mg) by mouth every 24 hours for 3 days. 3 Tablet 125Active amoxicillin-clavulanate (AUGMENTIN) 875-125 mg tablet Indications:Pneumonia of right upper lobe due to infectious organismTake 1 Tablet by mouth two times daily with meals for 5 days. 10 Tablet /5Active codeine-guaiFENesin 10-100 mg/5 mL liquid Indications:Pneumonia of right upper lobe due to infectious organismTake 5 mL by mouth every 4 hours if needed for Cough. 100 mL 5Active Active Problems ProblemNoted DateDiagnosed YjezKsahenk17/18/2025Spinal stenosis of lumbosacral hfgnsb7505/19/2024Irritable bowel syndrome with rzsvnnec50/29/2024ancreatic ucxwbwcreuamb31/29/7142Xuzmgfku66/29/3045Awvdon32/29/2024Chronic bronchitis 05/19/2024dvised about management of supqac3808/14/2023enign neoplasm of cecum 4Benign neoplasm of ascending colon08/01/2023enign neoplasm of descending colon08/01/2023iverticular disease of large nmmxajzzi50/08/2024 Noninfectious yewyhodebuibvgw30/13/2023Depression, major, single episode, /17/8851Upwxreyhpkmxjv18/13/2022Primary dqpqdfoifxvi84/13/2022Vertigo 1Pain of left lower hqkszwiuw16/27/2021Obstructive sleep apnea treated with continuous positive airway pressure (CPAP)05/17/2021omplex regional pain syndrome type 1 of left lower ewfimbgen07/27/2021errated adenoma of colon 09/23/2019 Overview (09/23/2019): Colonoscopy 09/2019 serrated adenoma, repeat in 5 years Reactive airway disease with acute arxcvjcbhluj87/26/2017Allergic conjunctivitis of both eyes01/02/2017Family history of diabetes rzvlxzju51/20/2016Adjustment disorder with depressed mood07/10/2016Status post total right knee replacement 09/14/2015Gastroesophageal reflux fgydfuf8607/14/2015 Overview (08/10/2019): EGD 07/2019 reflux on biopsy Left peroneal vein /14/2015denomatous colon polyp07/12/2014 Overview (07/12/2014): Colonoscopy 06/2014 polyp repeat in 5 years Status post left ankle joint nesrthqgvid23/09/2014Presence of ankle joint tskyzgtlep99/09/2014llergic /07/2013Herpes zoster without mention of nxeyekrxnlss29/09/2013 Resolved Problems ProblemNoted DateDiagnosed DateResolved DateChronic /15/2021 08/07/2022E upbmyv83Major depressive disorder, recurrent episode, in full dqwgzlcbp56JOINT PAIN - RIGHT ELBOW08/20/2005 05/28/2013Pain in joint, shoulder rgcyny94 Encounters DateTypeDepartmentCare MiyuKjpkavviabh06/18/2025Nurse Triage [facility] [address] [place] [address] Latanya Green MD Breathing Problem (Wheezing O2 sats dropped to 89-90 % at rest. Not getting better worse very shortof breath)07/05/2025 12:45 PM CSTOffice Visit [facility] [address] [place] [address] Kamilah Bautista PA Concerns (Cough x 1 week. Deep Bark cough. Ribs are painful from coughing. Can hear a rattle from respirations. No sinus pressure, everything feels dry and itchy. )07/05/20252625Vbsiyu71/14/2025Telephone [facility] [address] [place] [address] Latanya Green MD Prior Authorization (hydrOXYzine HCL (ATARAX) 25 mg tablet)06/29/2025 1:00 PM CSTOffice Visit [facility] [address] [place] [address] Latanya Green MD Neck Pain/problem (Still waiting on [facility] to schedule ablation.); Coordination Problems (Dizzy and off balance again. Woke up the day after Thanksgiving and the bed was like it was on a slant./Has been really off yesterday and today. Hanging on today./Has had some blood in the nose. Maybe even a sinus infection./Neuroly sent her back to PCP. Suggested going back to Dr. De La Rosa.) 06/29/20257246Gbpida60/04/2025 1:20 PM CSTOffice Visit [facility] at [facility] [address] [place] [address] Donald Simon MD Procedure (Left sacroiliac joint injection)05/25/20259884Ttyonl89/03/2025Transcribe Orders [facility] [address] [place] [address] Donald Simon MD 05/03/2025Orders Only [facility] Scanner 1 scan: (1-Ord) [facility], LUMBAR SPINE 2-3V, Orders Only [facility] Scanner 1 scan: (1-Ord) [facility], 4:00 PM CDTOffice Visit [facility] [address] [place] [address] Chris Jonas MD Sleep Follow-up (HST/)04/19/20257789Ggasth59/24/2025 7:30 AM CDTNurse/Clinic Staff Only [facility] [address] [place] [address] Testing ([facility] HST Download.)04/14/2025Travel 04/13/2025 2:00 PM CDTNurse/Clinic Staff Only [facility] [address] [place] [address] Testing (HST Set-up)04/13/2025Procedure Only [facility] [address] [place] [address] Chris Jonas MD Results (HST)04/12/2025Travelfrom Last 3 Months Immunizations ImmunizationAdministration DatesNext DueAMB Influenza, IIV3 (Age >=3 years) Preserve Free (Flu Clinic Only)06/01/2013MB Influenza, IIV4 PF (=>6 mos Flulaval,Fluzone Fluarix)(Flu Clinic Only)04/14/2014COVID-19 VACCINE COMIRNATY (PFIZER-BIONTECH 30MCG/0.3ML) 12YO+ PFS4COVID-19 vaccine (Moderna 100mcg/0.5mL) PF, MDV/05/2022,06/01/2021,10/01/2020,1COVID-19 vaccine (Pfizer-BioNTech 30mcg/0.3mL) 12YO+ BIVALENT PF, MDV11/30/2022Hepatitis A (Adult)07/02/1996,12/05/1995Hepatitis B (Adult)01/30/1999,07/28/1998,06/30/1998 Hepatitis B (Peds)01/30/1999,07/28/1998,06/30/1998Immune Globulin Intramuscular 10/01/1994Inactivated Polio Tervzgw8312/05/1995Influenza, High-dose Inactivated 04/30/2025,05/05/2020,05/26/2019,06/05/2018,07/10/2016Influenza, High-dose Quadrivalent Urukpgdutuf65/18/2022,06/01/2021Influenza, IIV3 (Age >=3 years) 05/22/2010,05/14/2008,05/28/2007Influenza, GQX747/Influenza, IIV4 (=>6mos) MDV1Influenza, Inactivated AIIV4 (Age 65+ Years) Preserv Free 05/15/2023Influenza, Inactivated IIV3 (Age 65+ Years) Preserv Free04/19/2024 Meningococcal Vaccine (Menactra)12/05/1995Meningococcal Vaccine (Menomune) 12/05/1995Meningococcal, Btmyveudwuu05/16/1996Pneumococcal Poly,23-Valent (Pneumovax)07/10/2016Pneumococcal conj 13-Valent (Prevnar 13)05/05/2015Polio Virus, Agufnwbrrdh15/16/1996RSV, Recombinant ADJ Reconstituted (Arexvy 120MCG/0.5mL)04/19/2024Td (Age >=7 Years)07/03/2018Td Adult (Tetanus And Diphtheria Toxoids, Not Adsorbed)07/03/2018Tdap109/02/2017,05/14/2008Zoster (Shingrix-RZV, recombinant)12/15/2019,07/19/2019Zoster (Zostavax-ZVL, live) 04/22/2015 Family History Medical HistoryRelationNameCommentsCancer-prostateBrotherDiabetesBrother HypertensionBrotherCancer-prostateFatherArthritisMotherDiabetesMotherae 65 HyperlipidemiaMotherHypertensionMotherAnesthesia ProblemNo Family HistoryBlood DiseaseNo Family HistoryCancerNo Family HistoryCancer-breastNo Family History Cancer-colonNo Family HistoryCancer-ovarianNo Family HistoryRelationNameStatus CommentsBrotherDaughterAliveFatherMother Social History Tobacco UseTypesPacks/DayYears UsedDateSmoking Tobacco: NeverSmokeless Tobacco: Never Tobacco Cessation:Counseling Given: Yes Comments:non smoking home Alcohol UseStandard Drinks/WeekCommentsNot Currently0 (1 standard drink = 0.6 oz pure alcohol)PHQ-2AnswerDate RecordedPHQ-2 TOTAL TYBKY655Social ConnectionsAnswerDate RecordedDo you often feel lonely or isolated from those around you?lcohol UseAnswerDate RecordedHow often do you have a drink containing alcohol?How many drinks containing alcohol do you have on a typical day when you are drinking?How often do you have five or more drinks on one occasion?Financial Resource StrainAnswer Date RecordedDifficulty of Paying Living Bmmgggxh479/09/2025Difficulty of Paying Living ExpensesNot on file06/29/2025Food InsecurityAnswerDate RecordedDo you worry your food will run out before you are able to buy more? Transportation NeedsAnswerDate RecordedDoes lack of transportation keep you from medical appointments?112/09/2025Does lack of transportation keep you from work, meetings or getting things that you need?Housing StabilityAnswerDate RecordedWhat is your housing situation today?Interpersonal Safety AnswerDate RecordedAre you being hit, kicked, pushed or yelled at (see row info)?No02/25/2025Interpersonal Safety Abuse 12 - 18Not on file02/25/2025 Interpersonal Safety Ambulatory VulnerabilityNot on file02/25/2025Utilities AnswerDate RecordedDo you have trouble paying for utilities (for example, heat, electricity, water, phone)?CommentsNoSex and Gender InformationValueDate RecordedSex Assigned at ZrzykDfzyhv49/05/2022 9:18 PM TELEVISION NEWS ANCHOR Legal CpxPuxtzr40/14/2013 5:34 AM CSTGender DlskkwsvImnoxl41/05/2022 9:18 PM TELEVISION NEWS ANCHOR Sexual UvamqvxnocyLvhofjtb23/05/2022 9:18 PM CSTTravel HistoryTravel StartTravel EfmRokyrs71/07/2024 Obstetrics History GravidaParaTermPretermABIABSABEctopicMultipleLivingLive Zqegpt4227VxqmByklsbtET Total LaborLabor/2nd/5ahWkxbmqBllLxhsMzhmACBGjgT3D7IurcXzgcCsreIyph Last Filed Vital Signs Vital SignReadingTime TakenCommentsBlood Yulnzupw189/7207/05/2025 12:44 PM TELEVISION NEWS ANCHOR Bflvg342507/05/2025 12:44 PM TJOIwpowzmbtei94.6 ??C (97.8 ??F)02/25/2025 10:36 AM CDTRespiratory Ogad097502/25/2025 10:36 AM CDTOxygen Tuwvftzlct06%07/05/2025 12:44 PM CSTInhaled Oxygen Concentration--Iesvrh51.3 kg (210 lb)02/25/2025 10:36 AM OLVAwhfia916.6 cm (5' 11.5)04/19/2025 3:56 PM CDTBody Mass Index28.8802/25/2025 10:36 AM CDT Plan of Treatment DateTypeDepartmentCare Team (Latest Contact Info)Hdbeotvmwxm79/10/2025 9:00 AM CSTOffice Visit [facility] [address] [place] [address] Chris Jonas MD [address] [place] [address] 10/19/2025 9:00 AM CDTOffice Visit [facility] [address] [place] [address] Latanya Green MD [address] [place] [address] Health MaintenanceDue DateLast DoneCommentsDepression screening for age 12+ , 10/08/2023, 10/04/2022, Additional history existsMedicare Wellness for age 65+/, 10/08/2023, 10/04/2022, Additional history existsCOVID-19 vaccine series ( season)/04/2025, 04/19/2024, 05/15/2023, Additional history existsBMI (ht and wt on same day) for age 18+/, 10/15/2024, 04/30/2024, Additional history exists Tetanus /, 07/02/2018, 05/14/2008Colonoscopy through age 750//02/2024, 09/22/2019, 09/22/2019, Additional history exists Lipids for age 45-, 08/16/2023, 10/04/2022, Additional history existsHepatitis B series for 19+Lrswoswuj66/12/1999, 01/30/1999, 07/28/1998, Additional history existsPneumococcal series for age 50+Completed 07/10/2016, 05/05/2015Zoster (shingles) series for age 50+Tvnenleik98/26/2020, 07/19/2019, 04/22/2015DEXA/DXA scan for age 65+Oggyolvnr29/18/2021, 10/07/2015 (Completed outside of [facility]), 05/05/2015, Additional history existsHepatitis C screening for age 18-16Cesqdgqvs13/11/2021, 08/04/2019RSV vaccine for adults or yqkxlyhvcMqrjresqm45/29/2024Influenza BliacdnWuyeqhclf24/10/2025, 04/19/2024, 05/15/2023, Additional history exists Medical Devices ImplantedTypeAreaManufacturerDevice IdentifierShelf Expiration DateModel / Serial / LotRod [id number] 5.5 Ccm Perc Tristan 120mm Implanted:Qty: 2 on 05/19/2024 by [facility] [id number] / / Description:TRISTAN [id number] 5.5 CCM PERC TRISTAN 120MMSet Screw 5.5/6.0 Solera Voyager - [id number] Implanted:Qty: 10 on 05/19/2024 by [facility]: SpineMedtronic Spine/[id number] / / Screw Spinal 8.5x80mm Cd Horizon Solera Voyager - [id number] Implanted:Qty: 2 on 05/19/2024 by [facility]: SpineMedtronic Spine/[id number] / / Bone 1-4mm 90cc Medtronic Chips Canclls Freeze Dried - [id number] Implanted:Qty: 1 on 05/19/2024 by [facility]: SpineMedtronic Spine/[id number] / [id number] / 95-4580Putty Easypack 5cc Magnetos - [id number] Implanted:Qty: 1 on 05/19/2024 by [facility]: SpineKuros Biosciences [id number] / / [id number] Lmbr [id number] 8 Deg Sovereign Stand Alone - [id number] Implanted:Qty: 1 on 05/19/2024 by [facility]: SpineMedtronic Spine/Ortho05/15/[id number] / / 71RMSpacer Lmbr [id number] 8 Deg Md Sovereign Stand Alone - [id number] Implanted:Qty: 2 on 05/19/2024 by [facility]: SpineMedtronic Spine/Ortho04/20/[id number] / / 73PCScrew Lmbr 5.5x25mm Sovereign Stand Alone - [id number] Implanted:Qty: 3 on 05/19/2024 by [facility]: SpineMedtronic Spine/[id number] / / Screw Spinal 5.5x50mm Voyager Mas - [id number] Implanted:Qty: 2 on 05/19/2024 by [facility]: SpineMedtronic Spine/[id number] / / Screw Spinal 5.5x45mm Voyager Mas - [id number] Implanted:Qty: 4 on 05/19/2024 by [facility]il [facility]L a Rosa [facility]: SpineMedtronic Spine/[id number] / / Screw Spinal 6.5x50mm Voyager Mas - [id number] Implanted:Qty: 2 on 05/19/2024 by [facility]: SpineMedtronic Spine/[id number] / / Set Screw Lmbr Ant 5.5mm Solera Break Off - [id number] Implanted:Qty: 1 on 06/25/2024 by [facility]: SpineMedtronic Spine/[id number] / / ExplantedTypeAreaManufacturerDevice IdentifierShelf Expiration DateModel / Serial / LotExplant Explanted:Qty: 1 on 06/25/2024 [facility]: Spine Description:SET SCREW X1 Procedures Procedure NamePriorityDate/TimeAssociated DiagnosisCommentsAMB EPIDURAL STEROID UEVTCPHGJKvqoxvb96/04/2025 12:00 AM TELEVISION NEWS ANCHOR Left hip pain SCAN-RADIOLOGY QSFARF5005/03/2025 12:00 AM CDT SCAN-EYE EXAM04/29/2025 12:00 AM CDT HOME SLEEP TEST TYPE 3 DMTFDVSHOpbahap49/23/2025 11:59 PM CDT LILIBETH (obstructive sleep apnea) LIPID PANEL W REFLEX MEASURED UZMPsnyerl42/27/2025 11:32 AM CDT Hyperlipidemia, unspecified hyperlipidemia type SCAN-KQUXRXQWPLK06/08/2024 11:00 AM TELEVISION NEWS ANCHOR ANTI ZPSRrhlwgl51/11/2021 11:23 AM CDT Neuropathy associated with hereditary ataxia Encounter for long-term (current) use of other medications Sciatica of left side Paresthesia Lesion of medial popliteal nerve XR DXA BONE DENSITY 2 SITES DLJAAJhltncb88/18/2021 10:05 AM TELEVISION NEWS ANCHOR Post-menopausal from Last 3 Months or Most Recently Relevant to Health Maintenance Results * AMB EPIDURAL STEROID INJECTION (05/25/2025 12:00 AM TELEVISION NEWS ANCHOR) Narrative Authorizing ProviderResult TypeResult StatusScott Kenroy Simon MDNEUROLOGY ORD Final Result * SCAN-RADIOLOGY REPORT (05/03/2025 12:00 AM CDT)Anatomical RegionLaterality ModalityOther Narrative Authorizing ProviderResult TypeResult StatusScannerOTHERFinal Result * SCAN-EYE EXAM (04/29/2025 12:00 AM CDT) Narrative Authorizing ProviderResult TypeResult StatusScannerOTHERFinal Result * HOME SLEEP TEST TYPE 3 PORTABLE (04/13/2025 11:59 PM CDT) Narrative Chris Jonas MD - 04/13/2025 11:59 PM CDT Chris Jonas MD 04/15/2025 12:44 PM Home Sleep Test Name: ??Marlys Alvarez Location: ??[facility] Study notes: This is a single night home sleep apnea test. The study is performed in the context of a clinical suspicion for sleep apnea.. Marlys Alvarez ( 1950) is studied using a T3 Device using nasal pressure transducer, thoracoabdominal respiratory impedence plethysmography belts, pulse oximetry, snore microphone and actigraphy for body position. ?? The study is scored by a RPSGT and interpreted by a Diplomate of the [place] [employer]. ??Raw summary data is scanned into this report as a separate document. ??An epoch by epoch review of the data has been performed by the interpreting physician. Scored following the AASM Manual for the Scoring of Sleep and Associated Events, V3. ?? Respiratory Event Index (DOROTEO) ??Oxygen Desaturation Index (BRAD) REI4% ??17.8 ??ODI4%: ??16.4 REI3% ??24.4 ??ODI3%: ??25.5 Supine DOROTEO: 55 ??Vahe Saturation 79 % Lateral DOROTEO: 15.1 ??Time Below 88% 72.3 ??minutes ?? Weight: Wt Readings from Last 1 Encounters: 02/25/25 95.3 kg (210 lb) Other data: Recording Duration: 539.9 minutes Time in Bed: ??490.1 minutes Estimated sleep efficiency [%]: 97 % Oximeter Quality: 100.0 % Flow Quality: 71.6 % RIP Quality: 100.0 % Supine time: 113.4 minutes Average SpO2: 89.7 % Pulse Average: 55.5 bpm Additional Comments: None IMPRESSION: Obstructive Sleep Apnea (327.23, G47.33) Nocturnal Hypoxia (327.26, G47.34) RECOMMENDATIONS: - This is moderate sleep apnea with periods of hypoxemia - Hypoxia is noted. ??While this can be probe error, it may suggest underlying cardiopulmonary disease and clinical correlation is recommended. - Treatment for obstructive sleep apnea is recommended and CPAP would generally be considered first-line therapy for this severity of sleep apnea. ??Consider auto-titrating CPAP 5-20 cm. - Consider a referral to Health Weight Management for patients with a BMI > 30. - Follow-up with a provider to discuss results is recommended. - Patients should be advised to avoid critical tasks, such as driving, whenever drowsy. - Patients should try to achieve at least 7-8 hours of sleep on a consistent basis. - The DOROTEO is a surrogate for AHI. ??For reimbursement and/or prior authorization purposes, it would be appropriate to list the DOROTEO as an AHI when the latter is accepted, but not the former. Chris Jonas M.D. Diplomate, Board of Sleep Medicine Recording Information Recording Date: 04/13/2025 ??Analysis Start Time: 10:30 PM Recording Tags: ?? Analysis Stop Time: 6:40 AM Device Type: T3S ??Analysis Duration (TRT): 8h 10m ?? Est. Total Sleep Time: 8h 10m Position and Analysis Time Duration Percentage Supine (in TST): 113.4 m 23.1 % Non-Supine (in TST): 376.7 m 76.9 % Upright (in TRT): 0 m 0 % Movement (in TST): 13.5 m 2.8 % Invalid Data (Excluded): 0 m 0 % Respiratory Indices Index ?? Total ??Supine ??Non-supine Count Apneas + Hypopneas (REI3%): 24.4 /h 55 /h 15.1 /h 199 Apneas + Hypopneas (REI4%) 17.8 /h ??/h ??/h ?? Apneas: 6.5 /h 21.2 /h 2.1 /h 53 Obstructive (OA): 6.5 /h 21.2 /h 2.1 /h 53 Mixed (MA): 0 /h 0 /h 0 /h 0 Central (CA): 0 /h 0 /h 0 /h 0 Hypopneas 3%: ??17.9 /h 33.9 /h 13.1 /h 146 Hypopneas 4%: 0 /h 64 /h 82 /h 0 Respiration Rate (per m): 16.2 /m 16.2 /m 16.2 /m ?? Percentage of Sleep Duration Snore: 41 % 31.1 % 44 % 200.8 m Flow Limitation: 100 % 0 % 100 % 0.1 m Average Snore Volume 71.1 dB Percent of time greater than 80dB: Percent of 40.1 % Oxygen Saturation (SpO2) Total Supine ?Non-supine Oxygen Desaturation Index (BRAD): 25.5 /h ??56.6 /h 16.1 /h Average SpO2: 89.7 % ??89.9 % 89.6 % Minimum SpO2: 79 % ??79 % 79 % SpO2 Duration < 90% 49.1 % (240.6m) 36 % 53.1 % SpO2 Duration <= 88% 14.7 % (72.3m) 19 % 13.5 % Pulse in TST ?? Quality ?? Average: 55.5 bpm Oximeter: 100 % Maximum: 83 bpm Nasal Cannula: 71.6 % Minimum: 50 bpm Abdomen RIP: 100 % Duration < 40 bpm: 0 m Thorax RIP: 100 % Duration > 100 bpm: 0 m Authorizing ProviderResult TypeResult StatusBryHanover Hospital CENTERFinal Result * LIPID PANEL W REFLEX MEASURED LDL (10/15/2024 11:32 AM CDT)ComponentValueRef RangeTest MethodAnalysis TimePerformed AtPathologist SignatureCHOLESTEROL, PFLLZ846<200 mg/dLCachet Financial SolutionseHDL JZMNQPYOKDZ44> OR = 50 mg/dL Cachet Financial SolutionseTRIGLYCERIDES117<150 mg/dLQuest IGGeLDL-GVQUMSWZZSK46tr/dL (calc)[employer] DaleComment: Reference range: <100 Desirable range <100 mg/dL for primary prevention; <70 mg/dL for patients with CHD or diabetic patients with > or = 2 CHD risk factors. LDL-C is now calculated using the Rocco-Mcdaniel calculation, which is a validated novel method providing better accuracy than the Friedewald equation in the estimation of LDL-C. Rocco SS et al. MIKE. 2013;310(19): 2955-3544 (http://education.Full Circle CRM/faq/TPA637) CHOL/HDLC RATIO2.4<5.0 (calc)[employer] DaleNON HDL QFGFUIUUJKH87 <130 mg/dL (calc)[employer] DaleComment: For patients with diabetes plus 1 major ASCVD risk factor, treating to a non-HDL-C goal of <100 mg/dL (LDL-C of <70 mg/dL) is considered a therapeutic option. Specimen (Source)Anatomical Location / LateralityCollection Method / Volume Collection TimeReceived TimeBloodBLOOD SPECIMEN / Tfvrmfz6910/15/2024 11:32 AM CDT 10/15/2024 11:32 AM CDT Narrative Authorizing ProviderResult TypeResult StatusLatanya Green MDCHEMISTRY Final ResultPerforming OrganizationAddressCity/State/ZIP CodePhone Number [facility] [address] [facility] [place] [address], [facility] [address] [place] [address] * SCAN-COLONOSCOPY (07/29/2023 11:00 AM TELEVISION NEWS ANCHOR) Narrative Procedure Note Ministerio Chen DO - 07/29/2023 10:13 AM CST [address], [address], [place] [id number] Patient Name: Marlys Alvarez Gender: Female Exam Date: 07/29/2023 Visit Number: [id number] Age: 73 Years Date of : 1950 Attending MD: Ministerio Chen DO Medical Record#: [id number] Procedure: Colonoscopy Indications: Diarrhea Hx of colon polyps Referring MD: Referral Self Primary MD: Latanya Green MD Medications: Intra Procedure Medications: Patient received monitored anesthesia care. Complications: No immediate complications Procedure: An examination of the heart and lungs was performed and found to be within acceptable limits. . The patient was therefore deemed [...] B: Deeper D: Deeper Electronically signed by: [place] [address] Orders Instruction(s)/Education: Instruction/Education Timeframe Assessment Colon Cancer [...] Latanya Green MD cc: Bernabe Karimi MD Authorizing ProviderResult TypeResult StatusSefred Chen DOOTHERFinal Result * ANTI HCV (03/01/2021 11:23 AM CDT)ComponentValueRef RangeTest MethodAnalysis TimePerformed AtPathologist SignatureHEPATITIS C ANTIBODYNon-Reactive Non-Vwzjohsq67/11/2021 5:46 PM [facility] Comment:Antibodies to HCV not detected; does not exclude the possibility of exposure to HCV.Specimen (Source)Anatomical Location / LateralityCollection Method / VolumeCollection TimeReceived TimeBloodBLOOD SPECIMEN / Unknown Venipuncture / Jqssbjt2203/01/2021 11:23 AM CDT03/01/2021 11:23 AM CDT Narrative Authorizing ProviderResult TypeResult Tomas Green MDSEND OUTS Final ResultPerforming OrganizationAddressCity/State/ZIP CodePhone Number [facility] [address] [place] [address], * XR DXA BONE DENSITY 2 SITES AXIAL (08/08/2020 10:05 AM TELEVISION NEWS ANCHOR)Anatomical Region LateralityModalitySpine, HIPS, HIPL, HIPROtherSpecimen (Source)Anatomical Location / LateralityCollection Method / VolumeCollection TimeReceived Time Narrative 08/10/2020 2:44 PM TELEVISION NEWS ANCHOR Please see scanned document for results of this study. Authorizing ProviderResult TypeResult Tomas Cabreraheimer MDDEXAFinal Result from Last 3 Months or Most Recently Relevant to Health Maintenance Insurance * Guarantor: AntonioJaniMarlysalyce Pichardo TypeRelation to PatientDate of BirthPhone Billing RxtqktcThmeziGpkk[address] [place] [phone] Advance Directives TypeDate RecordedPatient RepresentativeExplanationHealthcare Directive09/09/2015 4:01 [facility], 07/31/2014 * Full Code (Latest Code Status on File) Date ActivatedDate FcifldrgycnBrtimgze87/5/2024 5:28 PM06/26/2024 4:50 PMQuestion AnswerCommentsCode Status Discussion:* Other * Full Code Date ActivatedDate PllcjyrsnzjBqpboelc89/5/2024 9:07 AM06/25/2024 5:28 PMQuestion AnswerCommentsCode Status Discussion:* Unable to Assess Preferences, Provider to review later * Full Code Date ActivatedDate OymbmczahdfOtpjmkpa80/29/2024 6:49 PM05/22/2024 3:09 PM QuestionAnswerCommentsCode Status Discussion:* Other * Full Code Date ActivatedDate ElimbuqvpykEvflovxk84/29/2024 6:23 AM05/19/2024 6:49 PM QuestionAnswerCommentsCode Status Discussion:* Unable to Assess Preferences, Provider to review later Care Teams Team MemberRelationshipSpecialtyStart DateEnd Date Latanya Green MD [address] [place] [address] PCP - GeneralFamily Cmtwcddf21/21/13 Magalie Ta MD [address] [address] Surgery - Orthopedic02/12/12 Donald Simon MD [address] [place] [address] Consulting PhysicianSports Medicine - Family Medicine12/25/23 Cecilia Carey PharmD [address] [place] [address] Pharmacist Medication BhnjoxyijuZemevkvvcphq64/18/
--- OUTSIDE RECORDS SUMMARY | 2025-07-08 11:20 | XMS_ITS ---
Author Organization [facility] Care Team Providers Care Food Service Representative Name Role Phone Shirin Diaz Unavailable Unavailable Franklin Morrison Unavailable Unavailable Allergies and adverse reactions Code CodeSystem Substance Reaction Severity StartDate Concern Status AlfalfaUnknownUnknownactiveCatsUnknownUnknownactiveClove OilUnknownUnknownactive 51632805RSVQYY CTCommon cbiszhjClutbluOgoztipgvehok4640KYLJXTNttpwbezyfmfo ObbsvmdFuyflangvloih073684856LIVDXR CTHouse nudvEotekuhPesgjpthlnrvd5443MQMQLB QUXHZhgdtviLlvnuahHuopdyzlozeze2207508UVOYHQAcnbpTwipynxBmykgsbtmcbumLSQQWezqayb UnknownactiveMorphine and CodieneUnknownUnknownactiveSilkUnknownUnknownactive Care Team Name Role Address Phone Organization Dates Franklin Morrison PCP [address] [facility] [address], [place], [address], [place] (Office): : [facility] 05/22/2024 - 05/29/2024 Shirin Diaz [address] [facility], [place], [address], [place] (Cell): [facility] 05/22/2024 - 05/29/2024 Immunizations Immunization Status Vaccine Details Vaccine Code CodeSystem Date Notes Pneumoccol 23 completed pneumococcal polysaccharide vaccine, 23 valent lotNumber: [id number] Mfg: [employer] Given 0.5 intramuscularly 33 CVX created date: 05/25/2024 administer ed date: 07/10/2016 doseUOMN oncoded: mL Td: Tetanus/Diphther ia completed tetanus and diphtheria toxoids, adsorbed, preservative free, for adult use (2 Lf of tetanus toxoid and 2 Lf of diphtheria toxoid) 09 CVX created date: 05/25/2024 administer ed date: 07/03/2018 Prevnar 13completedpneumococcal conjugate vaccine, 13 valent lotNumber: [id number] Mfg: [facility] [employer] Given 0.5 vpxzbzaekhsxset120IPGvhrqbpm date: 05/25/2024 administered date: 05/05/2015doseUOMNoncoded:mLPrevnar 20cancelledPneumococcal conjugate vaccine 20-valent (PCV20), polysaccharide UIY221 conjugate, adjuvant, preservative ljbu480CLPkqpudcx date: 05/26/2024 consent date: 05/25/2024Educated by on 4Covid Bivalent Booster(Pfizer) orlhpabpqGOFN-GBE-0 (COVID-19) vaccine, mRNA, spike protein, LNP, bivalent, preservative free, 30 mcg/0.3 mLdose, lakeisha-sucrose formulation lotNumber: [id number] Mfg: PFIZER Given 0.3 avrrdydgkgzwwxl854XKNvqfrmth date: 05/25/2024 administered date: 3doseUOMNoncoded:mLShingrixcompletedzoster vaccine recombinant Given 1.0187CVXcreated date: 05/25/2024 administered date: 12/15/2019doseUOMNoncoded:{each}Shingrixcompletedzoster vaccine recombinant lotNumber: [id number] Mfg: Gyn[employer] Given 1.0 usewkrqcfsirjhs993CAYtfrjszn date: 05/25/2024 administered date: 07/19/2019doseUOMNoncoded:{each}Moderna Covid RmgzdibujhfreewfSUML-LUX-4 (COVID-19) vaccine, mRNA, spike protein, LNP, preservative free, 50 mcg/0.5 mL bslc609PBUumlyoct date: 05/25/2024 administered date: 05/15/2023RSVcompletedRespiratory syncytial virus (RSV), vaccine, recombinant, protein subunit RSV prefusion F, adjuvant reconstituted, 0.5 mL, preservative free lotNumber: [id number] Mfg: [employer] Given ezysrupciypogcr879PKWnhjffpw date: 05/25/2024 administered date: 04/19/2024influenza, trivalent, adjuvantedcompletedInfluenza, adjuvanted, inactivated, trivalent, injectable, preservative free lotNumber: [id number] Mfg: Seqirus Given bhabshqurwuywcr694LPXrmyvyvx date: 05/25/2024 administered date: 4Covid Pfizer PrzsxizhxmjrrackQSLB-RWM-4 (COVID-19) vaccine, mRNA, spike protein, LNP, preservative free, lakeisha-sucrose, 30 mcg/0.3 mL fxdz140HVKosiowod date: 05/25/2024 administered date: 04/19/2024 Mental Status Section Date Assessment Total Score Description 05/29/2024 BIMS 15 cognitively int act CAM 0 No delirium ind icated PHQ-9 01 minimal depress ion 05/28/2024 BIMS 15 cognitively int act PHQ-9 01 minimal depress ion Insurance Providers Coverage Status Coverage Type Relationship to Subscriber Member Identifier Subscriber Identifier Group Identifier Payer Identifier and Other information 2024 Code: Code System OID:2.16.840.1 .117558.3.221. 5 Code System Name: Source of Payment Typology (PHDSC) Display: Managed Care (Private) Translation: Code: Code System: OID:2.16.840.1 .203229.6.255. 1336 Code System Name: Insurance Type Code ([id number]) Display Name: Health Maintenance Organization (HMO) Plan Code: SELF Code System Name: HL7 RoleCode Code System OID:2.16.840.1 .137226.5.111 Display Name: Self [id number] 001 Root: [id number] a30 [id number]) Address: [place] [address] City: [place] State: [place] Country: [facility] Problems Problem # Description Date of onset Resolved Date Code CodeSystem Concern Status 1 ACUTE POSTHEMORRHAGIC ANEMIA 05/22/[address] active 2 ALLERGIC RHINITIS, UNSPECIFIED 05/22/[address] active 3 ANXIETY DISORDER, UNSPECIFIED 05/22/[address] active 4 ARTHRODESIS STATUS 05/22/[address] active 5 DEPRESSION, UNSPECIFIED 05/22/[address] active 6 ESSENTIAL (PRIMARY) HYPERTENSION 05/22/[address] active 7 GASTRO-ESOPHAGEAL REFLUX DISEASE WITHOUT ESOPHAGITIS 05/22/[address] active 8 HYPERLIPIDEMIA, UNSPECIFIED 05/22/[address] active 9 INSOMNIA, UNSPECIFIED 05/22/[address] active 10 MUSCLE WEAKNESS (GENERALIZED) 05/22/[address] active 11 OBSTRUCTIVE SLEEP APNEA (ADULT) (PEDIATRIC) 05/22/[address] active 12 OTHER ABNORMALITIES OF GAIT AND MOBILITY 05/22/[address] active 13 POSTMENOPAUSAL ATROPHIC VAGINITIS 05/22/[address] active 14 SLOW TRANSIT CONSTIPATION 05/22/[address] active 15 SPINAL STENOSIS, LUMBOSACRAL REGION 05/22/[address] active [address] UNSPECIFIED ASTHMA, UNCOMPLICATED 05/22/[address] active 17 UNSPECIFIED CHRONIC BRONCHITIS 05/22/[address] active Reason for Referral No Reasons for Referral Entered Social History Social History Observation Description Start Date End Date Code Code System Current Smoking Status Tobacco smoking consumption unknown 381301516 SNOMED CT Sex Assigned At Female 1950 [address]-2 [facility] Gender Identity Sexual Orientation Vital Signs Code Code System Vitals Name Values and Units Timing Information 9279-1 [facility] Respiratory Rate Value=16.0 Units=/m in 05/29/2024 8310-5 [facility] Body Temperature Value=97.3 Units= F 05/29/2024 8867-4 [facility] Heart rate Value=73.0 Units=/min 02/2024 51886-9 [facility] O2 % BldC Oximetry Value=96.0 Units= % 05/29/2024 8462-4 [facility] Blood Pressure-Diastolic Value=81 Un its=mmHg 05/29/2024 8480-6 [facility] Blood Pressure-Systolic Mvctt=662 Un its=mmHg 05/29/2024 56552-3 [facility] Pain Level Value=7.0 05/29/2024 02099-1 [facility] Weight Kcsba=010.8 Units=Lbs 08/2023
--- OUTSIDE RECORDS SUMMARY | 2025-07-08 11:57 | XMS_ITS ---
Author Organization [facility] Care Team Providers Care Carbon Brusher Assembler Name Role Phone Shirin Diaz Unavailable Unavailable Franklin Morrison Unavailable Unavailable Allergies and adverse reactions Code CodeSystem Substance Reaction Severity StartDate Concern Status AlfalfaUnknownUnknownactiveCatsUnknownUnknownactiveClove OilUnknownUnknownactive 59281462QXJFBX CTCommon onyttlhGwtvereJvfyfdzxtpoef8856TWERCEVvpuspayydlfg CmxglmbXwetqqhpwqvym862520672EOMUHG CTHouse vfxiLnuxfudNxcdvllmfgisj3546VHHJNH YASFKneumgtYllmzkfHglipnzuwohrr7439338JANMHBYbireAnuutcwPoqvmirnulyafRFCGYvkmlcf UnknownactiveMorphine and CodieneUnknownUnknownactiveSilkUnknownUnknownactive Care Team Name Role Address Phone Organization Dates Franklin Morrison PCP [address] [facility] [address], [place], [address], [place] (Office): : [facility] 05/22/2024 - 05/29/2024 Shirin Diaz [address] [facility], [place], [address], [place] (Cell): [facility] 05/22/2024 - 05/29/2024 Immunizations Immunization Status Vaccine Details Vaccine Code CodeSystem Date Notes Pneumoccol 23 completed pneumococcal polysaccharide vaccine, 23 valent lotNumber: [id number] Mfg: Merck & Co. Given 0.5 intramuscularly 33 CVX created date: 05/25/2024 administer ed date: 07/10/2016 doseUOMN oncoded: mL Td: Tetanus/Diphther ia completed tetanus and diphtheria toxoids, adsorbed, preservative free, for adult use (2 Lf of tetanus toxoid and 2 Lf of diphtheria toxoid) 09 CVX created date: 05/25/2024 administer ed date: 07/03/2018 Prevnar 13completedpneumococcal conjugate vaccine, 13 valent lotNumber: [id number] Mfg: [employer] Given 0.5 btcnojiliwjkbxo749PSJobjqywk date: 05/25/2024 administered date: 05/05/2015doseUOMNoncoded:mLPrevnar 20cancelledPneumococcal conjugate vaccine 20-valent (PCV20), polysaccharide YAV904 conjugate, adjuvant, preservative vepc217SAIndwgyhj date: 05/26/2024 consent date: 05/25/2024Educated by on 4Covid Bivalent Booster(Pfizer) kfbqcuggjVCTN-DON-9 (COVID-19) vaccine, mRNA, spike protein, LNP, bivalent, preservative free, 30 mcg/0.3 mLdose, lakeisha-sucrose formulation lotNumber: [id number] Mfg: PFIZER Given 0.3 zuymdxvpkrkfeaa125UKYzkwzstp date: 05/25/2024 administered date: 3doseUOMNoncoded:mLShingrixcompletedzoster vaccine recombinant Given 1.0187CVXcreated date: 05/25/2024 administered date: 12/15/2019doseUOMNoncoded:{each}Shingrixcompletedzoster vaccine recombinant lotNumber: [id number] Mfg: [employer] Given 1.0 mhisoffzyfltjea055ASJvkummox date: 05/25/2024 administered date: 07/19/2019doseUOMNoncoded:{each}Moderna Covid MuxiojxbvfcpjpxoJWYX-PIO-1 (COVID-19) vaccine, mRNA, spike protein, LNP, preservative free, 50 mcg/0.5 mL djno381CKZxkdlith date: 05/25/2024 administered date: 05/15/2023RSVcompletedRespiratory syncytial virus (RSV), vaccine, recombinant, protein subunit RSV prefusion F, adjuvant reconstituted, 0.5 mL, preservative free lotNumber: [id number] Mfg: [employer] Given dxlgrzvpsqoezkr732SOJvmtpsjm date: 05/25/2024 administered date: 04/19/2024influenza, trivalent, adjuvantedcompletedInfluenza, adjuvanted, inactivated, trivalent, injectable, preservative free lotNumber: [id number] Mfg: Seqirus Given qcfiuzoffaojcfc147WRNgynifpp date: 05/25/2024 administered date: 4Covid Pfizer HkbljxtqyujmhuiaIXVN-CKF-4 (COVID-19) vaccine, mRNA, spike protein, LNP, preservative free, lakeisha-sucrose, 30 mcg/0.3 mL vldt288AOXahfubvx date: 05/25/2024 administered date: 04/19/2024 Mental Status [...] Other information 2024 Code: Code System OID:2.16.840.1 .516761.3.221. 5 Code System Name: Source of Payment Typology (PHDSC) Display: Managed Care (Private) Translation: Code: Code System: OID:2.16.840.1 .966342.6.255. 1336 Code System Name: Insurance Type Code ([id number]) Display Name: Health Maintenance Organization (HMO) Plan Code: SELF Code System Name: HL7 RoleCode Code System OID:2.16.840.1 .446106.5.111 Display Name: Self [id number] 001 Root: [id number] [id number] Address: [place] [address] City: [place]: [place] Country: [facility] Problems Problem # Description Date of onset Resolved Date Code CodeSystem Concern Status 1 ACUTE POSTHEMORRHAGIC ANEMIA 05/22/[address] active 2 ALLERGIC RHINITIS, UNSPECIFIED 05/22/[address] active 3 ANXIETY DISORDER, UNSPECIFIED 05/22/[address] active 4 ARTHRODESIS STATUS 05/22/[address] active 5 DEPRESSION, UNSPECIFIED 05/22/[address] active 6 ESSENTIAL (PRIMARY) HYPERTENSION 05/22/[address] active 7 GASTRO-ESOPHAGEAL REFLUX DISEASE WITHOUT ESOPHAGITIS 05/22/[address] active 8 HYPERLIPIDEMIA, UNSPECIFIED 05/22/[address] active 9 INSOMNIA, UNSPECIFIED 05/22/[address] active 10 MUSCLE WEAKNESS (GENERALIZED) 05/22/[address] active 11 OBSTRUCTIVE SLEEP APNEA (ADULT) (PEDIATRIC) 05/22/[address] active 12 OTHER ABNORMALITIES OF GAIT AND MOBILITY 05/22/[address] active 13 POSTMENOPAUSAL ATROPHIC VAGINITIS 05/22/[address] active 14 SLOW TRANSIT CONSTIPATION 05/22/[address] active 15 SPINAL STENOSIS, LUMBOSACRAL REGION 05/22/[address] active 16 UNSPECIFIED ASTHMA, UNCOMPLICATED 05/22/[address] active 17 UNSPECIFIED CHRONIC BRONCHITIS 05/22/[address] active Reason for Referral No Reasons for Referral Entered Social History Social History Observation Description Start Date End Date Code Code System Current Smoking Status Tobacco smoking consumption unknown 812894809 SNOMED CT Sex Assigned At Female 1950 [address]-3 [facility] Gender Identity Sexual Orientation Vital Signs Code Code System Vitals Name Values and Units Timing Information 9279-1 [facility] Respiratory Rate Value=16.0 Units=/m in 05/29/2024 8310-5 [facility] Body Temperature Value=97.3 Units= F 05/29/2024 8867-4 [facility] Heart rate Value=73.0 Units=/min 02/2024 86452-0 [facility] O2 % BldC Oximetry Value=96.0 Units= % 05/29/2024 8462-4 [facility] Blood Pressure-Diastolic Value=81 Un its=mmHg 05/29/2024 8480-6 [facility] Blood Pressure-Systolic Zujft=079 Un its=mmHg 05/29/2024 20342-9 [facility] Pain Level Value=7.0 05/29/2024 69117-0 [facility] Weight Beezm=626.8 Units=Lbs 08/2023
[2025-07-08 12:13] LABS: Hematocrit* 47.0 % (33.0-51.0); Hemoglobin* 15.3 gm/dL (12.0-16.0); Mean Corpuscular HGB Conc 33 gm/dL (32-36); Mean Corpuscular Hemoglobin 30 pg (26-34); Mean Corpuscular Volume 93 fL (80-100); RDW Coefficient of Variation % 11.7 % (11.5-15.5); Red Blood Count* 5.05 m/uL (4.00-5.20); White Blood Count* 4.86 K/uL (4.50-11.00)
[2025-07-08 12:14] LABS: Immature Granulocytes Abs Auto 0.01 K/uL (0.00-0.30); Immature Granulocytes Pct Auto 0.2 %; Lymphocytes Absolute Auto 1.60 K/uL (0.90-2.90)
[2025-07-08 12:22] LABS: Slide Review Reflex No
[2025-07-08 12:25] LABS: Chloride* 103 mmol/L (96-114); Potassium* 4.0 mmol/L (3.6-5.1); Sodium* 138 mmol/L (135-149)
[2025-07-08 12:28] LABS: Anion Gap 9 mEq/L (7-15); Blood Urea Nitrogen* 17 mg/dL (7-30); Carbon Dioxide* 26 mmol/L (20-32); Creatinine* 1.0 mg/dL (0.5-1.5); Est. Creatinine Clearance* 56.09; Estimated Glomerular Filt Rate 59 ml/min; Glucose* 108 mg/dL (60-115)
[2025-07-08 12:29] LABS: Calcium* 9.3 mg/dL (8.4-10.6)
[2025-07-08 12:31] LABS: D Dimer Quantitative* 1.62 ug/ml (0.00-0.50)
[2025-07-08 12:38] LABS: NT Pro B Type NatriureticPept* < 20 pg/mL (See Note)
[2025-07-08 12:48] LABS: PCR FLU A Negative PCR FLU A (Negative); PCR FLU B Negative PCR FLU B (Negative); PCR RSV Negative PCR RSV (Negative); SARS PCR* Negative SARS-CoV-2 (Negative)
--- NOTE | 2025-07-08 12:51 | CRLHL7_ITS ---
For Patients: As a result of the 21st Century Cures Act, medical imaging exams and procedure reports are released immediately into your electronic medical record. You may view this report before your referring provider. If you have questions, please contact your health care provider. Indication: SOB. PNEUMONIA Technique: CTA chest, pulmonary embolism protocol, utilizing 95 mL Isovue 370 Comparison: None Findings: No imaged thyroid nodules. No thoracic lymphadenopathy. The heart is at the upper limits of normal in size. No right heart strain. No pericardial effusion. Coronary artery calcifications. Mild aneurysmal dilatation of the ascending thoracic aorta measuring approximately 4.0 centimeters in AP dimension. The pulmonary artery is normal in caliber. Evaluation of the pulmonary arteries is limited secondary to respiratory motion. There is no central or lobar pulmonary embolism. There are some regions of decreased attenuation in the segmental/subsegmental pulmonary arteries of the bilateral lobes (for example in the anterior basal segmental artery of the right lower lobe, series number 6, image 87), favored to represent contrast mixing and motion artifact, and less likely small pulmonary emboli. No focal airspace consolidation, pleural effusion, or pneumothorax. Trace right basilar atelectasis. No emphysematous or fibrotic changes. Minimal right apical pleural/parenchymal scarring. No suspicious pulmonary nodules or masses. There are minimal secretions in the distal aspect of the right intermediate bronchus and distal airways. The imaged upper abdomen is without acute abnormality. Cyst at the upper pole of the left kidney, incompletely characterized on this exam. Small hiatal hernia. No acute fracture or malalignment. Multilevel degenerative changes throughout the spine. T8 vertebral body hemangioma. Impression: 1. There is no central or lobar pulmonary embolism. There are some regions of decreased attenuation in the segmental/subsegmental pulmonary arteries of the bilateral lobes (for example in the anterior basal segmental artery of the right lower lobe, series number 6, image 87), favored to represent contrast mixing and motion artifact, and less likely small pulmonary emboli. 2. No right heart strain. 3. No focal airspace consolidation, pleural effusion, or pneumothorax. Please note that all CT scans at this facility use dose modulation, iterative reconstruction, and/or weight-based dosing when appropriate to reduce radiation dose to as low as reasonably achievable. Dictated by Dave Jenkins MD @ 07/08/2025 1:48:21 PM (Electronically Signed)
--- NOTE | 2025-07-08 13:37 | ED.GENADULT ---
HPI - General Adult General Chief complaint: Shortness of Breath/Dyspnea Stated complaint: Pneumonia asthmatic SOB Time Seen by Provider: 07/08/25 11:24 Source: patient Mode of arrival: ambulatory Limitations: no limitations History of Present Illness HPI narrative: Patient is a 75-year-old female presenting to the emergency department for shortness of breath and some mild chest pain. Has a history of previous DVT and asthma she states. Her main concern is his shortness of breath. States symptoms have been going on for the past 10 days. She saw her primary care provider 4 days ago and was started on Augmentin and azithromycin. She feels like since then symptoms are not getting better. She feels more short of breath than she did before. States symptoms got acutely worse today. States that rest she does okay but feels like it is hard to breathe whenever she moves around. Also states she will feel short of breath sitting in her recliner. Has some mild left-sided chest pain that she only notices if she is coughing or takes a deep breath. She states the feels musculoskeletal in nature. She has not had any fevers or chills. States she has not been tested for COVID flu RSV. Has had previous blood clot in her leg. States she has some mild bilateral lower extremity swelling but this is chronic for her since she was started on amlodipine. Denies headache, has, dizziness, weakness, numbness, abdominal pain. States she has been using her home inhalers without much improvement symptoms. No other concerns noted at this time. Related Data Home Medications ?Medication ?Instructions ?Recorded ?Confirmed acetaminophen 325 mg capsule 500 mg PO Q6H 12/10/22 02/03/25 (Tylenol) albuterol sulfate 2.5 mg/3 mL 2.5 mg Q4H PRN cough 12/10/22 02/03/25 (0.083 %) solution for nebulization cetirizine 10 mg tablet (Allergy 10 mg PO DAILY PRN 12/10/22 02/03/25 Relief (cetirizine)) cholecalciferol (vitamin D3) 50 2,000 unit PO DAILY 12/10/22 02/03/25 mcg (2,000 unit) chewable tablet duloxetine 60 mg capsule,delayed 60 mg PO BID 12/10/22 02/03/25 release famotidine 20 mg tablet (Acid 20 mg PO BID 12/10/22 02/03/25 Controller) fluticasone propionate 50 1 spray intranasal DAILY PRN 12/10/22 02/03/25 mcg/actuation nasal spray,suspension (24 Hour Allergy Relief) rosuvastatin 5 mg tablet 5 mg PO QPM 12/10/22 02/03/25 amlodipine 2.5 mg tablet 2.5 mg PO DAILY 01/07/24 02/03/25 trazodone 50 mg tablet 50 mg PO QDAY 02/03/25 02/03/25 Previous Rx's ?Medication ?Instructions ?Recorded prednisone 10 mg tablet 30 mg (3 x 10 mg) PO DIRECTED 02/03/25 #15 tabs Allergies Allergy/AdvReac Type Severity Reaction Status Date / Time dicloxacillin Allergy Intermediate Heartburn Verified 07/08/25 13:33 hydrocodone Allergy Intermediate Unknown Verified 07/08/25 13:33 acetaminophen Allergy Mild itchy Verified 07/08/25 13:33 cat dander Allergy Mild SOB, Verified 07/08/25 13:33 wheezing house dust Allergy Mild Congested Verified 07/08/25 13:33 latex Allergy Mild itching Verified 07/08/25 13:33 morphine Allergy Mild itchy Verified 07/08/25 13:33 oxycodone Allergy Mild itchy Verified 07/08/25 13:33 alfalfa Allergy Unknown Verified 07/08/25 13:33 mold Allergy Unknown Congested Verified 07/08/25 13:33 ragweed pollen Allergy Unknown Verified 07/08/25 13:33 witch rand Allergy Verified 07/08/25 13:33 clove AdvReac inflammatio Verified 07/08/25 13:33 n environmental Allergy Unknown Unknown Uncoded 07/08/25 13:33 Review of Systems Status of ROS: Reports: 10 or more systems reviewed and unremarkable except as noted in History and below [facility] Medical History Headache ?R51.9 - Headache, unspecified (ICD-10) Sweating increase ?R61 - Generalized hyperhidrosis (ICD-10) Unsteadiness ?R26.81 - Unsteadiness on feet (ICD-10) Ankle fracture ?S82.899A - Other fracture of unspecified lower leg, initial encounter for closed fracture (ICD-10) Major depressive disorder, single episode, moderate ?F32.1 - Major depressive disorder, single episode, moderate (ICD-10) Obstructive sleep apnea ?G47.33 - Obstructive sleep apnea (adult) (pediatric) (ICD-10) Pain in left leg ?M79.605 - Pain in left leg (ICD-10) Acute onset of severe vertigo ?R42 - Dizziness and giddiness (ICD-10) Unspecified asthma with (acute) exacerbation ?J45.901 - Unspecified asthma with (acute) exacerbation (ICD-10) Adjustment disorder with depressed mood ?F43.21 - Adjustment disorder with depressed mood (ICD-10) Acid reflux ?K21.9 - Gastro-esophageal reflux disease without esophagitis (ICD-10) Acute embolism and thrombosis of left peroneal vein ?I82.452 - Acute embolism and thrombosis of left peroneal vein (ICD-10) AB (asthmatic bronchitis) ?J45.909 - Unspecified asthma, uncomplicated (ICD-10) Zoster without complications ?B02.9 - Zoster without complications (ICD-10) Surgical History History of arthroplasty of finger of right hand ?Z96.691 - Finger-joint replacement of right hand (ICD-10) History of arthroplasty of finger of left hand ?Z96.692 - Finger-joint replacement of left hand (ICD-10) History of cataract extraction ?Z98.49 - Cataract extraction status, unspecified eye (ICD-10) History of arthroscopy of right knee ?Z98.890 - Other specified postprocedural states (ICD-10) History of total replacement of left ankle ?Z96.662 - Presence of left artificial ankle joint (ICD-10) History of lumbar laminectomy (06/2022) ?Z98.890 - Other specified postprocedural states (ICD-10) Status post total right knee replacement (~2015) ?Z96.651 - Presence of right artificial knee joint (ICD-10) Status post total left knee replacement (04/03/21) ?Z96.652 - Presence of left artificial knee joint (ICD-10) H/O laparoscopy ?Z98.890 - Other specified postprocedural states (ICD-10) H/O arthroscopic knee surgery (03/02/19) ?Z98.890 - Other specified postprocedural states (ICD-10) H/O: hysterectomy ?Z90.710 - Acquired absence of both cervix and uterus (ICD-10) H/O dilation and curettage ?Z98.890 - Other specified postprocedural states (ICD-10) S/p bilateral carpal tunnel release ?Z98.890 - Other specified postprocedural states (ICD-10) Status post repair of ligament of ankle ?Z98.890 - Other specified postprocedural states (ICD-10) Social History Narrative: life partner-Alex Smoking Status: Never smoker How often do you have a drink containing alcohol: 2-4 times a month AUDIT-C Alcohol total score: 2 Non-prescribed substance use: marijuana (any form) Non-prescribed substance use details: gummies to help with sleep, last taken 12/11 Caffeine: Yes Exam Narrative: Exam Narrative: Const: Well-nourished, Well-developed, in mild distress Eyes: PERRL, no conjunctival injection, and symmetrical lids HENT: Atraumatic external nose and ears. Moist mucous membranes. Neck: Symmetric, trachea midline, No thyromegaly. CVS: RRR, No murmurs or gallops. Peripheral pulses 2+ and equal in all extremities RESP: Unlabored respiratory effort. Clear to auscultation bilaterally. GI: Nontender/Nondistended, No rebound or guarding. MSK:Extremities w/o deformity, Normal Active ROM, left-sided chest wall tenderness that reproduces her pain. Skin: Warm, Dry. No rashes or lesions. Neuro: Normal Muscle tone, No focal neurological deficits. Psych: Awake, Alert, & Oriented x3. Appropriate mood and affect. Const: Vital Signs, click to edit/add: Vital Signs - 24 hr 07/08/25 11:18 07/08/25 11:36 07/08/25 11:37 Temperature 95.7 F L Pulse Rate 87 85 Pulse Rate [Pulse Oximeter] 98 Respiratory Rate 24 Blood Pressure 137/90 H Blood Pressure [Ri ght Upper Arm] 149/84 H Pulse Oximetry 91 93 93 Oxygen Delivery Me thod Room Air 07/08/25 11:45 07/08/25 12:00 07/08/25 12:01 Temperature Pulse Rate 82 77 75 Pulse Rate [Pulse Oximeter] Respiratory Rate Blood Pressure 133/83 Blood Pressure [Ri ght Upper Arm] Pulse Oximetry 93 92 91 Oxygen Delivery Me thod 07/08/25 12:02 07/08/25 12:15 07/08/25 12:30 Temperature Pulse Rate 75 68 60 Pulse Rate [Pulse Oximeter] Respiratory Rate Blood Pressure Blood Pressure [Ri ght Upper Arm] Pulse Oximetry 92 93 91 Oxygen Delivery Me thod 07/08/25 12:32 07/08/25 12:45 07/08/25 13:00 Temperature Pulse Rate 63 59 L 61 Pulse Rate [Pulse Oximeter] Respiratory Rate Blood Pressure 135/84 Blood Pressure [Ri ght Upper Arm] Pulse Oximetry 92 93 92 Oxygen Delivery Me thod 07/08/25 13:02 07/08/25 13:26 07/08/25 13:30 Temperature Pulse Rate 57 L 78 71 Pulse Rate [Pulse Oximeter] Respiratory Rate 24 Blood Pressure 135/78 Blood Pressure [Ri ght Upper Arm] Pulse Oximetry 93 92 93 Oxygen Delivery Me thod 07/08/25 13:32 07/08/25 13:45 07/08/25 14:00 Temperature Pulse Rate 68 68 63 Pulse Rate [Pulse Oximeter] Respiratory Rate 24 20 23 Blood Pressure 136/81 Blood Pressure [Ri ght Upper Arm] Pulse Oximetry 94 94 95 Oxygen Delivery Me thod 07/08/25 14:02 Temperature Pulse Rate 61 Pulse Rate [Pulse Oximeter] Respiratory Rate 23 Blood Pressure 130/80 Blood Pressure [Ri ght Upper Arm] Pulse Oximetry 94 Oxygen Delivery Me thod Course Vital Signs Vital signs: Initial Vital Signs Temperature 95.7 F L 07/08/25 11:18 Temperature Source Temporal Artery Scan 07/08/25 11:18 Pulse Rate 98 07/08/25 11:18 Respiratory Rate 24 07/08/25 11:18 Blood Pressure 149/84 H 07/08/25 11:18 Blood Pressure Mean 105 07/08/25 11:18 Blood Pressure Position Sitting 07/08/25 11:18 Pulse Oximetry 91 07/08/25 11:18 Oxygen Delivery Method Room Air 07/08/25 11:18 Vital Signs Temperature 95.7 F L 07/08/25 11:18 Pulse Rate 98 07/08/25 11:18 Respiratory Rate 24 07/08/25 11:18 Blood Pressure 149/84 H 07/08/25 11:18 Pulse Oximetry 91 07/08/25 11:18 Oxygen Delivery Method Room Air 07/08/25 11:18 Temperature 95.7 F L 07/08/25 11:18 Pulse Rate 61 07/08/25 14:02 Respiratory Rate 23 07/08/25 14:02 Blood Pressure 130/80 07/08/25 14:02 Pulse Oximetry 94 07/08/25 14:02 Oxygen Delivery Method Room Air 07/08/25 11:18 Medications Administered Medications: Discontinued Medications Generic Name Dose Route Start Last Admin Trade Name Freq PRN Reason Stop Dose Admin Ketorolac Tromethamine 15 mg 07/08/25 13:38 07/08/25 14:05 Ketorolac 15 Mg/Ml Inj IVP 07/08/25 13:39 15 mg ONCE ONE Administration Medical Decision Making MDM Narrative Medical decision making narrative: Patient is a 75-year-old female presenting for shortness of breath. The differential diagnosis of shortness of breath is broad and includes common etiologies such as COPD, asthma, pneumonia, viral syndrome, etc. More serious etiologies considered include PE, CHF, coronary artery disease, pneumothorax, aortic dissection, aortic aneurysm. She appears otherwise stable in the my concern for aortic dissection and aortic aneurysm is low. We do EKG and troponin to look for signs of coronary artery disease. With a previous history of DVTs will order a D-dimer to rule out PE. Does not have any lower extremity swelling at this time and I do not believe lower extremity ultrasounds are indicated. Will order viral swabs. Order chest imaging hitting D-dimer. CBC, BMP also ordered. He the [employer] ordered due to shortness of breath for possible CHF. Her lungs sound clear right now and I do not believe breathing treatments will be beneficial. She is satting 93% air. Lab work returned showing no concerning abnormalities other than a D-dimer 1.62. Viral swabs are negative. EKG and troponin showed no acute concerning abnormalities. Due to the elevated D-dimer will order a CTA of the chest. While this was being done she was asking for pain meds and Toradol was given. Her chest pain appears to be musculoskeletal in nature considering it is reproducible on palpation and she describes it is musculoskeletal. CTA chest shows no acute concerning abnormalities. This was interpreted by myself and the radiologist. There is no right heart strain. No focal airspace consolidations or effusions or pneumothorax. There is no clear signs of a pulmonary embolism. There is some decreased attenuation and the smaller some segmental pulmonary arteries which is favored to represent contrast mixing and motion artifact and less likely a small pulmonary emboli. Due to this I do not believe she has a PE and I believe putting her on a blood thinner would be an unnecessary risk. I cannot say for certain was causing shortness of breath at this time but does not appear to be anything emergent. On my review vital signs are stable throughout time in in the emergency department. Oximetry stayed in the mid to high 90s. awake overnight monitor showed no concerning arrhythmias. Very well could be a different virus that we did not test for. Chest pain is musculoskeletal. I did speak to her about doing a stress test and she states she would like this to be done. Will order a Lexiscan. She is agreeable to this plan. She will be discharged. Diagnosis: Shortness of breath, chest wall pain Lab Data Labs: Lab Results 07/08/25 07/08/25 07/08/25 Range/Units 11:45 11:56 12:04 WBC 4.86 (4.50-11.00) K/uL RBC 5.05 (4.00-5.20) m/uL Hgb 15.3 (12.0-16.0) gm/dL Hct 47.0 (33.0-51.0) % MCV 93 (80-100) fL MCH 30 (26-34) pg MCHC 33 (32-36) gm/dL RDW Coeff of Shereen 11.7 (11.5-15.5) % Plt Count 230 (140-440) K/uL Neut % (Auto) 52.3 (42.0-72.0) % Lymph % (Auto) 32.9 (20-44) % Marin % (Auto) 7.6 (0.0-11.0) % Eos % (Auto) 6.8 (0.0-7.0) % Baso % (Auto) 0.2 (0.0-3.0) % Neut # (Auto) 2.54 (1.7-7.0) K/uL Lymph # (Auto) 1.60 (0.90-2.90) K/uL Marin # (Auto) 0.40 (0.00-0.90) K/UL Eos # (Auto) 0.33 (0.00-0.50) K/uL Baso # (Auto) 0.01 (0.00-0.30) K/uL Abs Immat Gran (auto) 0.01 (0.00-0.30) K/uL Imm/Tot Granulo (auto) 0.2 % D-Dimer Quant (PE/DVT) 1.62 H (0.00-0.50) ug/ml Sodium 138 (135-149) mmol/L Potassium 4.0 (3.6-5.1) mmol/L Chloride 103 (96-114) mmol/L Carbon Dioxide 26 (20-32) mmol/L Anion Gap 9 (7-15) mEq/L BUN 17 (7-30) mg/dL Creatinine 1.0 (0.5-1.5) mg/dL Estimated Creat Clear 56.09 Estimated GFR 59 ml/min Glucose 108 (60-115) mg/dL Calcium 9.3 (8.4-10.6) mg/dL Magnesium 2.0 (1.5-2.6) mg/dL POC Troponin I High Sensi 3.1 (2.9-13.0) pg/mL NT-Pro-B Natriuret Pep < 20 (See Note) pg/mL SARS-CoV-2 (PCR) Negative SARS-CoV-2 (Negative) Influenza Type A (PCR) Negative PCR FLU A (Negative) Influenza Type B (PCR) Negative PCR FLU B (Negative) RSV (PCR) Negative PCR RSV (Negative) Imaging Data CTA chest: Attestation: I have reviewed the pertinent imaging results. Radiologist's impression: 1. There is no central or lobar pulmonary embolism. There are some regions of decreased attenuation in the segmental/subsegmental pulmonary arteries of the bilateral lobes (for example in the anterior basal segmental artery of the right lower lobe, series number 6, image 87), favored to represent contrast mixing and motion artifact, and less likely small pulmonary emboli. 2. No right heart strain. 3. No focal airspace consolidation, pleural effusion, or pneumothorax. Please note that all CT scans at this facility use dose modulation, iterative reconstruction, and/or weight-based dosing when appropriate to reduce radiation dose to as low as reasonably achievable. Dictated by Dave Jenkins MD @ 07/08/2025 1:48:21 PM ECG Data Attestation: I personally reviewed and interpreted this ECG as follows: Prior ECG tracings: not available for review Interpretation: Normal sinus rhythm with a rate 69 beats per minute, normal intervals, normal axis, no ST or T-wave abnormalities. Discharge Plan Discharge Clinical Impression: Shortness of breath, Chest wall pain Patient Disposition: Home, Self-Care Condition: Stable Instructions: Chest Wall Pain (ED), Shortness of Breath (ED) Additional Instructions: I did schedule you for a Lexiscan stress test. I cannot say for certain you will get it before the end of the year. I do recommend you follow-up the primary care provider for the symptoms. I do not see any emergent issues but this could be a 2nd virus that you got sick with. The pneumonia appears to have resolved. Return to emergency department for new or worsening symptoms. Prescriptions: No Action trazodone 50 mg tablet 50 mg PO QDAY prednisone 10 mg tablet 30 mg PO DIRECTED Qty: 15 0RF Rx Instructions: Take 20mg with breakfast and 10mg with lunch amlodipine 2.5 mg tablet 2.5 mg PO DAILY acetaminophen [Tylenol] 325 mg capsule 500 mg PO Q6H albuterol sulfate 2.5 mg /3 mL (0.083 %) solution for nebulization 2.5 mg Q4H PRN (Reason: cough) rosuvastatin 5 mg tablet 5 mg PO QPM duloxetine 60 mg capsule,delayed release(DR/EC) 60 mg PO BID cholecalciferol (vitamin D3) 50 mcg (2,000 unit) tablet,chewable 2,000 unit PO DAILY cetirizine [Allergy Relief (cetirizine)] 10 mg tablet 10 mg PO DAILY PRN famotidine [Acid Controller] 20 mg tablet 20 mg PO BID fluticasone propionate [24 Hour Allergy Relief] 50 mcg/actuation spray,suspension 1 spray intranasal DAILY PRN Rx Instructions: administer into each nostril Follow Up/Referrals: Latanya Green MD [Primary Care Provider, Family Practice] Stand Alone Forms: [employer] Info Instructions
== END 2025-07-08 14:41 | disposition home or self-care (01) ==
PROVIDERS: Emergency Provider Student in an Organized Health Care Education/Training Program; PCP Family Medicine
DX: R06.02 Shortness of breath (principal); R07.89 Other chest pain; Z86.718 Personal history of other venous thrombosis and embolism
CPT/HCPCS: 36415; 71275; 80048; 83735; 83880; 84484; 85025; 85379; 87631; 93005; 96374; 99284; 99285; J1885; Q9967

== ENCOUNTER 2025-07-20 08:15 | Outpatient (CLI) | payer MEDICARE, SELFPAY ==
[2025-07-20] MEDS: REGADENOSON 0.4 MG/5 ML SYRINGE IVP (10:20)
[2025-07-20 10:30] VITALS: BP 138/86; PULSE 86; RESP 16
--- NOTE | 2025-07-20 10:47 | W.PM.STED ---
Stress Test Note Date Date Seen: 07/20/25 Date of test: 07/20/25 Providers Primary care provider: Latanya Green Stress test physician: Trey Thao Stress Test Note Stress test ordered: Lexiscan Indication for test: Dyspnea Stress test medicine: Lexiscan Results discussion: This very nice patient presents for the above test, after discussion the risks benefits and side effects of the test, patient would like to continue. Cardiac stress test medical history form is reviewed entirely. Pretest EKG shows normal sinus rhythm with a ventricular rate of 59, blood pressure 146 less 84, some diffuse ST wave changes are notable on the tracing. These are more pronounced than review with the tracing from 07 08 2025. This can be from lead placement. Standard Lexiscan walking protocol is done for a 5 minute period, she tolerated this well, and was asymptomatic. Maximum heart rate was 114, which is 92% of the predicted. Review of the tracing does not show any change in her baseline irregularities. She recovered normally Impression: negative electrographic portion of Lexiscan, symptomatic negative Follow up suggested: await nuclear imaging review. Clinical correlation with this will be needed, patient recovered normally, there were no complications,
== END 2025-07-20 08:16 | disposition home or self-care (01) ==
LOC: STRESS 08:16
PROVIDERS: PCP Family Medicine; Visit Provider Student in an Organized Health Care Education/Training Program
DX: R06.00 Dyspnea, unspecified (principal)
CPT/HCPCS: 78452; 93016; 93017; A9500; J2785